=== PATIENT | female | born 1945 | race Caucasian/White ===

== ENCOUNTER 2016-12-07 10:03 | Inpatient (IN) | payer MEDICARE, OTHER ==
[~2016-12-07] VITALS: Ht 167.6 cm; Wt 78.1 kg
[2016-12-07] VITALS (8 sets, daily range): BP systolic 117–144; BP diastolic 67–85; PULSE 67–113; RESP 16–18; O2SAT 94–100
[~2016-12-07 10:03] MED LIST: ACID1TAB2 PO; ASPI-973 PO; CALC-952 PO; CEPH-512 PO; DEXT1DRO8 BOTH_EYES; DIPH25CA6 PO; DOCU-41 PO; FAMO20T PO; FERR-83 PO; FLUT16SP NS; HYDR-4003 PO; KTC2C15 TP; LEVO100T6 PO; MAG355OR31 PO; MAGN800O PO; METO25TA6 PO; OLAN2.5T20 PO; OXYB10TA PO; PARO20TA5 PO; POLY17PO6 PO; SODI126M NS; TRAZ-115 PO; ZIT250 PO
--- NOTE | 2016-12-07 10:05 | ED.REPORT ---
HPI-Chest Pain 40 and Over Date of Service Dec 07, 2016 ED Provider: The patient is a 71 year old female with history of diabetes mellitus, hypertension, hypoproliferative anemia, stroke, s/p pacemaker, hypothyroidism, and GERD, who presents to the emergency department by EMS for chest pain that began at 0900 this morning. The pain radiated into her shoulders and arms bilaterally. She describes the pain as "aching." After the pain began she see subsequently developed nausea, vomiting, and diaphoresis. Her pain was initially an 8/10 but after nitroglycerin x4 administered by medics her pain improved to a 2/10. She denies history of a previous heart attack, cardiac stents, congestive heart failure, asthma or emphysema. She has experienced a cough over the last few days but has otherwise felt well. Nursing Notes Stated Complaint: CHEST PAIN Nursing Notes Reviewed: Yes Allergies: Coded Allergies: TAPE (Verified Allergy, Severe, Sensitive Skin/Blisters (Paper& Coban OK) , 12/07/16) gabapentin (Verified Allergy, Severe, Edema, 12/07/16) meperidine (Verified Allergy, Severe, Seizures, 12/07/16) phenytoin (Verified Allergy, Severe, "I Turn Black", 12/07/16) ciprofloxacin (Verified Allergy, Intermediate, 12/07/16) Reported reaction from RN at [facility] deferasirox (Verified Allergy, Unknown, 12/07/16) latex (Verified Allergy, Unknown, 12/07/16) codeine (Verified Adverse Reaction, Mild, itching, 12/07/16) calcium (Verified Adverse Reaction, Unknown, CALCIUM CITRATE, 12/07/16) Uncoded Allergies: HAYFEVER (Allergy, Unknown, 07/16/16) STRAWBERRIES, (Allergy, Unknown, 07/16/16) Scheduled Acidophilus/Pectin, [place] (Acidophilus [place]) 1 Each Tablet 1 EACH PO QAM Cholecalciferol (Vitamin D3) (Vitamin D) 1,000 Unit Tablet 1,000 UNIT PO QAM Cyanocobalamin (Vitamin B-12) (Vitamin B-12) 1,000 Mcg Tablet 1,000 MCG PO QAM Dextran 70/Hypromellose/Pf (Artificial Tears Drops) 1 Each Droperette 1 DROP BOTH_EYES BID Famotidine (Famotidine) 20 Mg Tablet 20 MG PO QAM Fluticasone Propionate (Flovent Diskus) 250 Mcg Disk.w.dev 1 PUFF INHALATION BID Glucosamine (Glucosamine) 500 Mg Tablet 500 MG PO BID Levothyroxine (Levothyroxine) 100 Mcg Tablet 100 MCG PO QAM Melatonin/Pyridoxine (Melatonin 3 mg Tablet) 1 Each Tablet 1 EACH PO HS Metoprolol Tartrate (Metoprolol Tartrate) 25 Mg Tablet 12.5 MG PO QAM Multivitamin (Once Daily) 1 Each Tablet 1 EACH PO QAM Olanzapine (Olanzapine) 5 Mg Tablet 5 MG PO QPM Oxybutynin Chloride ER (Oxybutynin Chloride ER) 10 Mg Tab.er.24 10 MG PO QPM Paroxetine (Paroxetine) 20 Mg Tablet 20 MG PO QPM Terbinafine (Terbinafine) 250 Mg Tablet 250 MG PO BID Tizanidine (Tizanidine) 4 Mg Tablet 4 MG PO TID Trazodone (Trazodone) 50 Mg Tablet 25 MG PO HS Scheduled PRN Bisacodyl (Dulcolax) 5 Mg Tablet.dr 5 MG PO QAM PRN PRN For Constipation Docusate Sodium (Docusate Sodium) 250 Mg Capsule 250 MG PO QAM PRN PRN For Constipation Guaifenesin/Codeine Phosphate (Guaifen-Codeine 100-10 mg/5 ml) 120 Ml Liquid 10 ML PO Q4H PRN PRN For Cough Hydrocodone-Acetaminophen 5-325 mg (Hydrocodone-Acetaminophen 5-325 mg) 1 Each Tablet 1-2 TABLET PO BID PRN PRN For Pain Ondansetron (Ondansetron) 4 Mg Tablet 4 MG PO DAILY PRN PRN For Nausea/Vomiting Polyethylene Glycol 3350 (Miralax) 17 Gm Powd.pack 17 GM PO QAM PRN PRN For Constipation Sennosides (Senna) 8.6 Mg Tablet 17.2 MG PO QAM PRN PRN For Constipation General Time Seen by MD: 10:04 Chief Complaint Chest pain Hx Obtained From: Patient, EMS Arrived By: Ambulance Sudden in Onset?: Yes Onset Occurred: 1 - 4 hours ago Symptom Duration: Since onset Location: : Chest left: Chest right Quality: Painful Radiation: : Arm left: Arm right: Shoulder left: Shoulder right Severity: Current: Pain level 2 out of 10 Severity: Maximum: Pain level 8 out of 10 Recent Healthcare: No recent doctor visit, No recent hospitalization Similar Sx Previous: No Past Medical History Past Medical History H/o bipolar with psychosis Diabetes mellitus type 2 diet-controlled, chronic Hypoproliferative anemia, seen by Dr. Alvarado. 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 Hypothyroidism History of kidney stones GERD Hypertension History of endometriosis Osteoarthritis diffuse with chronic pain. Past Surgical History Cataract removal in 2007 Pacemaker placement, Hysterectomy at age 29 Cholecystectomy Tonsillectomy. Status post surgery for small bowel adhesions, hernia repair, and colon surgery Multiple hip replacements on the left x3. Smoking History Former Smoker Social History POLST indicates full code Alcohol Use: "Social" Drug Use: Denies drug use Other Social History: , Local resident Ambulatory Status Walker Review of Systems Constitutional: Denies: Fever Respiratory: Reports: Non-productive cough Cardiovascular: Reports: Chest pain GI: Reports: Nausea, Vomiting, Denies: Diarrhea Musculoskeletal: Reports: Extremity pain, Joint pain Skin: Reports Diaphoresis, Denies Rash Complete sys rev & neg: except as marked. Ears / Nose / Throat: Denies: Nasal congestion Physical Exam Initial Vital Signs Vital Signs (First) Date Time Temp Pulse Resp B/P Pulse Ox O2 Delivery O2 Flow Rate FiO2 12/07/16 10:14 36.8 70 16 117/67 94 Room Air Initial VS: Reviewed Head / Eyes: Atraumatic, Normocephalic, PERRL ENT: Mucous membranes moist, Conjunctiva normal, No scleral icterus Neck: Supple, Non-tender, Full range of motion Lymphatic: No lymphadenopathy Extremities: Vascular intact, Neuro intact, No swelling, No tenderness Skin: Warm, Dry, No cyanosis Neurologic: Alert, Oriented, Nonfocal Psychiatric: Mood/affect normal, Behavior normal, Normal thought content General/Constitutional: Awake, Alert, No acute distress, Well appearing, Cooperative Respiratory / Chest: Atraumatic, Breath sounds NL, Breath sounds = bilat, No respiratory distress, No rales, No rhonchi, No wheezing, No stridor, No chest tenderness Cardiovascular: Heart rate NL, Regular rhythm, Heart sounds NL, No gallop, No murmurs, No rubs, Peripheral circulation NL, Pulses = bilaterally, No gross BP differential Abdomen: Atraumatic, Soft, Non-tender, McBurney's non-tender, No guarding, No rebound, BS normoactive, No distention, No hernia, No palpable mass Interpretation & Diagnostics Lab Results Interpretation Result Diagram: 12/07/16 1005 12/07/16 1005 Test 12/07/16 10:05 White Blood Count 4.0th/mm3 (3.8-10.1) Red Blood Count 3.29mil/mm3 (3.90-5.20) Hemoglobin 10.8g/dL (12.0-15.6) Hematocrit 33.3% (35.0-46.0) Mean Corpuscular Volume 101.2fL (81-100) Mean Corpuscular Hemoglobin 32.8pg (27.0-35.0) Mean Corpuscular Hemoglobin Concent 32.4% (32.0-37.0) Red Cell Distribution Width 13.4% (12.3-15.4) Platelet Count 184bil/L (150-400) Neutrophils (%) (Auto) 47.9% (40-74) Lymphocytes (%) (Auto) 39.2% (14-46) Monocytes (%) (Auto) 10.2% (4-12) Eosinophils (%) (Auto) 2.0% (0-5) Basophils (%) (Auto) 0.2% (0-3) Activated Partial Thromboplast Time 24.8sec (22.8-33.0) Sodium Level 140mEq/L (134-144) Potassium Level 4.2mEq/L (3.5-5.2) Chloride Level 103mEq/L (97-108) Carbon Dioxide Level 21mmol/L (18-29) Blood Urea Nitrogen 31mg/dL (8-27) Creatinine 1.49mg/dL (0.57-1.00) Estimat Glomerular Filtration Rate 50mL/min (>59) Glucose Level 131mg/dL (60-99) Calcium Level 9.7mg/dL (8.5-10.1) Magnesium Level 1.9mg/dL (1.6-2.6) Total Bilirubin 0.4mg/dL (0.0-1.2) Aspartate Amino Transf (AST/SGOT) 18U/L (0-50) Alanine Aminotransferase (ALT/SGPT) 9U/L (0-32) Alkaline Phosphatase 78U/L (25-165) Troponin T 0.022ug/L (0.0-0.011) Total Protein 7.6g/dL (6.4-8.4) Albumin 4.0g/dL (3.4-5.0) ECG Interpretation ECG Interpretation: Paced rhythm Rate: 70 Time: 10:09 Interpreted by: ED physician X-Ray Chest Interpretation Chest Xray Interpretation: IMPRESSION: No acute disease Dictated by: Kyrie Avila M.D. on 12/07/2016 at 10:42 Interpretation / Wet Read by: Interpret - Radiologist Re-Eval/Medical Decision Source of Hx: Old records, EMS Time of Eval: 11:35 Re-Evaluation/Progress Note: Rechecked the patient. Discussed plan for admission. All questions were addressed. Consultation : Referral / Consult Name: Rizwan Beaver MD Consulted With: Hospitalist Requested Call at: 11:34 Call Returned at: 12:55 Wet Wash Assembler: Will see patient, Agrees with eval, Agrees with plan, Accepts admit Counseled Regarding: Diagnosis, Lab results, Need for admission Discharge & Departure Primary Impression: Chest pain Chest pain type: unspecified Qualified Code: R07.9 - Chest pain, unspecified Disposition: ADMITTED TO HOSPITAL Discharge Condition All VS Reviewed: Yes Condition: Stable Referrals: Nael Jin MD (PCP) Scribe Attestation Portions of this note were transcribed by Keara Webster. I, Dr. Dinero personally performed the history, physical exam and medical decision-making; I reviewed and confirmed the accuracy of the information in the transcribed note. Signed by: Jered Dotson, 12/07/2016 at 1300. copies to: Nael Jin MD, Kirk H MD Dec 07, 2016 10:05 Keara Webster Dec 07, 2016 10:13 Jerald Dinero MD Dec 07, 2016 10:05 Keara Webster Dec 07, 2016 10:13
[2016-12-07] MEDS ORDERED: Heparin 5,000 Unit/mL Inj IVPUSH PRN (10:15)
[2016-12-07] MEDS ORDERED: Nitroglycerin 2% 1 Gm Ointment TOPICAL ONE (10:15)
[2016-12-07] MEDS ORDERED: Heparin 25K Unit/500mL 0.45 NS 25,000 UNIT in IV Premix 1 EACH IV SCH (10:15)
[2016-12-07] MEDS ORDERED: Heparin 5,000 Unit/mL Inj IVPUSH ONE (10:15)
[2016-12-07] MEDS ORDERED: Ondansetron 2 mg/mL 2 mL Inj IVPUSH ONE (10:15)
[2016-12-07 10:21] LABS: BASOPHILS % (AUTO) 0.2 % (0-3); MONOCYTES % (AUTO) 10.2 % (4-12); Mean Corpuscular Hemoglobin 32.8 pg (27.0-35.0); Mean Corpuscular Volume 101.2 fL (81-100); NEUTROPHILS % (AUTO) 47.9 % (40-74); Platelet Count 184 bil/L (150-400)
--- NOTE | 2016-12-07 10:49 | DRSVH ---
PROCEDURE: X-RAY CHEST ONE VIEW, PORTABLE ([id number]) INDICATIONS: Chest Pain TECHNIQUE: One view of the chest was acquired. COMPARISON: [facility], CR, XR CHEST 2VW, 06/15/2016, 19:56. FINDINGS: Surgical changes and devices: Dual-lead cardiac pacer Lungs and pleura: No pleural effusions or pneumothorax. Lungs are clear. Mediastinum: Mediastinal contours appear normal. Heart size is normal. Bones and chest wall: No suspicious bony lesions. Overlying soft tissues appear unremarkable. IMPRESSION: No acute disease Dictated by: Kyrie Avila M.D. on 12/07/2016 at 10:42 Approved by: Kyrie Avila M.D. on 12/07/2016 at 10:47
[2016-12-07 11:11] LABS: Magnesium 1.9 mg/dL (1.6-2.6); TROPONIN T 0.022 ug/L (0.0-0.011)
[2016-12-07] MEDS ORDERED: Alum-Mag Hydrox-Simeth 30 mL Suspension PO PRN (13:00)
[2016-12-07] MEDS ORDERED: FAMO20TA4 PO (13:42)
[2016-12-07] MEDS ORDERED: MELA1TAB11 PO (13:42)
[2016-12-07] MEDS ORDERED: GLUC500T12 PO (13:42)
[2016-12-07] MEDS ORDERED: FLUT250D2 INHALATION (13:42)
[2016-12-07] MEDS ORDERED: METO25TA6 PO (13:42)
[2016-12-07] MEDS ORDERED: MULT-666 PO (13:45)
[2016-12-07] MEDS ORDERED: OLAN5TAB PO (13:45)
[2016-12-07] MEDS ORDERED: TERB250T11 PO (13:47)
[2016-12-07] MEDS ORDERED: CYAN10008 PO (13:47)
[2016-12-07] MEDS ORDERED: TIZA4TAB4 PO (13:47)
[2016-12-07] MEDS ORDERED: ONDA-53 PO (13:51)
[2016-12-07] MEDS ORDERED: DOCU250C2 PO (13:51)
[2016-12-07] MEDS ORDERED: GUAI120L30 PO (13:51)
[2016-12-07] MEDS ORDERED: BISA-67 PO (13:51)
[2016-12-07] MEDS ORDERED: CHOL100043 PO (13:51)
[2016-12-07] MEDS ORDERED: SENN-133 PO (13:53)
--- NOTE | 2016-12-07 15:00 | NUR ---
Arrival to floor Pt arrived to 3016 from ED, pt is on heparin gtt. Pt is alert and orient, pt has a brace on her left leg from having a broken femur 3 months ago.
[2016-12-07] MEDS ORDERED: Senna-Docusate 8.6-50 mg Tablet PO PRN (15:20)
[2016-12-07] MEDS ORDERED: Atropine 1 mg/10 mL (Code) Syringe IVPUSH PRN (15:20)
[2016-12-07] MEDS ORDERED: Polyethylene Glycol (PEG) 17 Gm Powder PO PRN (15:20)
[2016-12-07] MEDS: 0.9% Sodium Chloride 1,000 ML IV SCH (17:25)
[2016-12-07] MEDS ORDERED: _HYDROcodone/APAP 5-325 mg Tablet PO PRN (18:05)
--- NOTE | 2016-12-07 18:10 | NUR ---
Chest Pain Pt up to bedside commode as per her usual home routine. Upon getting back in bed, pt exerted herself and confirmed chest pain when asked. Nitro given x1, BP taken - stable. 5 mins later, 2nd nitro given, BP stable. EKG done. Morphine [address] Marquez. Pt stabilized. Continue to monitor.
--- NOTE | 2016-12-07 18:16 | PCM.HPMED ---
Subjective Date of Service Dec 07, 2016 Primary Provider: Admitting Physician: Rizwan Beaver MD Primary Care Physician: Nael Jin MD Attending Physician: Rizwan Beaver MD . Admit Status: From the Emergency Department, Full Admit Chief Complaint: Chest pain. . History of Present Illness: Camila Sharpe is a 71-year-old female with a past medical history significant for diabetes mellitus type II, diet controlled, hypertension, hyperlipidemia, symptomatic bradycardia status post pacemaker placement, remote CVA with left-sided hemiparesis, CKD stage II, who presented to [facility] Emergency Department via EMS from [facility] facility due to chest pain that began at 0900 this morning. The pain was located substernally and radiated into her left shoulder and arm. She described the pain as aching in quality. She had associated diaphoresis, nausea, and vomiting 2. Her pain was initially an + 8 out of 10 but after nitroglycerin x4 was administered by paramedics her pain improved to a +2 out of 10. She reports that her pain had resolved completely by the time she arrived at the emergency department. She has never had this before. She denies headache, lightheadedness or dizziness, vision changes, dysarthria, shortness of breath, or palpitations. Vital signs in the ER: Temperature 36.8. Pulse 70. Respiratory rate 16. Blood pressure 117/67. Pulse ox 94% on room air. She was given nitroglycerin SL 4 en route. She also received metoprolol 25 mg PO 1, Zofran 4 mg IV 1 and was started on a heparin gtt per cardiac protocol in the ED. PCP is Dr. Morales. . Review of Systems: A comprehensive review of systems was conducted with the patient and found to be negative except as above in the History of Present Illness. . Allergies Coded Allergies: TAPE (Verified Allergy, Severe, Sensitive Skin/Blisters (Paper& Coban OK) , 12/07/16) gabapentin (Verified Allergy, Severe, Edema, 12/07/16) meperidine (Verified Allergy, Severe, Seizures, 12/07/16) phenytoin (Verified Allergy, Severe, "I Turn Black", 12/07/16) ciprofloxacin (Verified Allergy, Intermediate, 12/07/16) Reported reaction from RN at [facility] deferasirox (Verified Allergy, Unknown, 12/07/16) latex (Verified Allergy, Unknown, 12/07/16) codeine (Verified Adverse Reaction, Mild, itching, 12/07/16) calcium (Verified Adverse Reaction, Unknown, CALCIUM CITRATE, 12/07/16) Uncoded Allergies: HAYFEVER (Allergy, Unknown, 07/16/16) STRAWBERRIES, (Allergy, Unknown, 07/16/16) PMH 1. Hypertension. 2. Hyperlipidemia. 3. Diabetes mellitus type II, diet controlled. 4. Obstructive sleep apnea not on CPAP. 5. Remote history of tobacco use. 7. History of TIA and CVA. 8. Bradycardia status post pacemaker. 9. Anemia, chronic, hypoproliferative. 10. Gastroesophageal reflux disease. 11. Hypothyroidism. 12. Chronic kidney disease of uncertain baseline with history of acute kidney injury (recent creatinine running 1-2). 13. Incontinence. 14. Bipolar disorder type I. 15. Depression. 16. Anxiety. 17. Chronic pain with opiate habituation. 18. Femur fracture and left hip abnormality on CT. 19. History of urinary tract infection. 20. History of C. difficile colitis in July 2015. 21. History of MRSA bacteremia. 22. History of sacral decubitus ulcer. . Surgical History 1. Bilateral cataract extraction. 2. Hysterectomy BSO. 3. Cholecystectomy. 4. Tonsillectomy. 5. Laparoscopy for small-bowel adhesions x 6. 6. Unspecified small and large colon surgery. 7. Left hip replacement x 5 with hardware removal. . Family History Dad of diabetic complications. Mother who had lung cancer and of pneumonia at 72 years old. Brother who had an SC in his 40's and is alive and well. . Social History Hx Alcohol Use: No Hx Substance Use: No Hx Tobacco Use: Yes (remote history) Smoking Status: Former Smoker (2 ppd x 12-15 years) Living Arrangement: Assisted Living Additional Information The patient is x 42 years. She has no children of her own. 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 She was born in [place]. . Exam Vital Signs Vital Sign - Last Date Time Temp Pulse Resp B/P Pulse Ox O2 Delivery O2 Flow Rate FiO2 12/07/16 10:14 36.8 70 16 117/67 94 Room Air Exam General: Elderly obese female in no acute distress, well-developed, well- nourished, appropriately interactive. HEENT: Normocephalic, atraumatic. External ears without defect. Pupils equal, round, and reactive to light. Anicteric sclerae, moist conjunctivae, and no lid lag. Oropharynx free of erythema and cobble stoning with moist mucosa. Neck: Supple with full range of motion. No jugular venous distension. No bruits. No lymphadenopathy or thyromegaly. Cardiovascular: Regular rate and rhythm without rubs or gallops appreciated. Systolic 2/5 murmur appreciated. No abdominal bruit. Capillary refill <3 seconds. Pulmonary: Clear to auscultation bilaterally with no crackles, wheezes, or rhonchi. Normal respiratory effort with no use of accessory muscles. Abdomen: Obese, soft, no tenderness, nondistended. No hepatosplenomegaly or masses appreciated. : Pierson absent. Extremities: No clubbing, cyanosis, or edema. Skin: Normal temperature, turgor, and texture; no rash, ulcers, or subcutaneous nodules appreciated. Neurological: Cranial nerves grossly intact. Normal muscle strength, tone, and bulk. Reflexes, coordination, and sensory function within normal limits. No known gait impairment. Psychiatric: Normal mood and affect. Alert and oriented to person, place, and time. . Lab and Diagnostics Labs Item Value Date Time Calcium Level 9.7 mg/dL 12/07/16 1005 Magnesium Level 1.9 mg/dL 12/07/16 1005 Total Bilirubin 0.4 mg/dL 12/07/16 1005 Aspartate Amino Transf (AST/SGOT) 18 U/L 12/07/16 1005 Alanine Aminotransferase (ALT/SGPT) 9 U/L 12/07/16 1005 Alkaline Phosphatase 78 U/L 12/07/16 1005 Troponin T 0.022 ug/L H 12/07/16 1005 Total Protein 7.6 g/dL 12/07/16 1005 Albumin 4.0 g/dL 12/07/16 1005 Result Diagram: 12/07/16 1005 12/07/16 1005 X-Rays, CTs and MRIs X-RAY CHEST ONE VIEW, PORTABLE IMPRESSION: No acute disease Dictated by: Kyrie Avila M.D. on 12/07/2016 at 10:42 Approved by: Kyrie Avila M.D. on 12/07/2016 at 10:47 . 12-lead ECG EKG: AV paced, heart rate 70. Cardiac Echo Impressions Echocardiogram Interpretation Summary: There is basal inferior wall severe hypokinesis. There is basal posterolateral wall severe hypokinesis. There is proximal mid posteriolateral wall severe hypokinesis. Reading Physician:12:12 PM . Assessment & Plan Camila Sharpe is a 71-year-old female with a past medical history significant for bipolar disorder and intermittent psychosis, diabetes mellitus type II, diet controlled, hypertension, hyperlipidemia, pacemaker placement, remote CVA with hemiparesis, CKD stage II, who presented to [facility] Emergency Department via EMS from [facility] facility due to chest pain. 1. NSTEMI, present on admission. Active. - Cardiac risk factors include: Hypertension, hyperlipidemia, diabetes mellitus type II, age, smoker, and significant family history. - Patient presented with substernal chest pain with associated diaphoresis, nausea, vomiting, left shoulder and arm pain which resolved with sublingual nitroglycerin. - EKG shows AV pacing, therefore, unreliable. - Troponin initially elevated at 0.22. Patient then had another episode of chest pain with corresponding increased troponin of 0.769. Continue serial troponins every 6 hours. - Patient received metoprolol tartrate 25 mg PO 1. - Ordered CK-MB, pending. - Continue aspirin 81 mg daily. - Continue cardiac heparin gtt. - Discussed patient with Dr. Young of cardiology who recommends Plavix 600 mg , Lipitor 40 mg, and placing the patient NPO for catheterization tomorrow morning. - Continue to monitor closely on telemetry. - The patient continues to have chest pain recommend starting a nitroglycerin drip. - Recent echocardiogram basal inferior wall severe hypokinesis, basal posterolateral wall severe hypokinesis, and proximal mid posteriolateral wall severe hypokinesis. - Ordered fasting lipid panel to be performed tomorrow morning with a.m. labs. - Dr. Young of cardiology was consulted and plans for catheterization in the morning. We appreciate their time and care of the patient. Chronic problems: Hypertension, chronic. - Continue metoprolol tartrate 25 mg daily. Hyperlipidemia, chronic. - Continue atorvastatin 40 mg daily at bedtime. Diabetes mellitus type II, diet controlled. - Last hemoglobin A1c 4.6% on 05/2016. Repeat hemoglobin A1c pending. - Ordered low dose correctional scale insulin. - Ordered carbohydrate consistent/heart healthy diet. Gastroesophageal reflux disease, chronic. - Continue famotidine 20 mg daily. Hypothyroidism, chronic. - Continue levothyroxine 100 g daily. Chronic hypoproliferative anemia. - History of chronic anemia secondary to CKD, requiring transfusions. - The patient reports receiving transfusions every 3-4 months. - Continue to monitor daily. Bipolar disorder type I, chronic - Continue olanzapine 5 mg daily and fluoxetine 20 mg daily.. Chronic pain with opiate habituation, chronic. - Continue hydrocodone 5-325 mg 1-2 tablets every 4 hours as needed for pain. Incontinence, chronic. - Continue oxybutynin ER 10 mg daily. Remote CVA with left hemiparesis. - Continue aspirin 81 mg daily and atorvastatin 40 mg daily at bedtime. Obstructive sleep apnea not on CPAP. Remote history of tobacco use. Bradycardia status post pacemaker. PRN antiemetics: Zofran and Maalox. PRN bowel regimen: Senna and MiraLAX. PRN analgesics: Tylenol. Patient is admitted under inpatient status with expected length of stay greater than 2 midnights due to severity of presenting symptoms, risk of adverse event, and complexity of treatment plan. . VTE Prophylaxis: Other (Heparin gtt ) Resuscitation Status: CPR: Attempt Resuscitation Attending Statement The patient was seen and examined together with Dr. Marquez on 12-07-16 and I agree with the history, exam and plan as outlined in the note above. Marj Marquez DO Dec 07, 2016 13:28 Rizwan Beaver MD Dec 09, 2016 11:24
[2016-12-07] MEDS: Tolterodine ER 2 mg ER24 Capsule PO SCH (21:59)
[2016-12-07] MEDS: Fluticasone 250 mCg Inhaler INHALATION SCH (21:59)
[2016-12-07 22:03] LABS: TROPONIN T 0.622 ug/L (0.0-0.011)
[2016-12-08] VITALS (11 sets, daily range): BP systolic 113–151; BP diastolic 51–94; PULSE 70–71; RESP 16–23; O2SAT 95–99
--- NOTE | 2016-12-08 06:36 | NUR ---
Bedrest Maintained on bedrest this shift due to reports of increased CP with activity. Has denied any episodes of CP at rest. Tele has remained AVPaced 70's without any significant ectopy per quality assurance monitor body.
[2016-12-08] MEDS: 0.9% Sodium Chloride 1,000 ML IV SCH ×2 (07:41→19:41)
[2016-12-08] MEDS: PARoxetine 20 mg Tablet PO SCH (07:46)
[2016-12-08 07:48] LABS: BASOPHILS % (AUTO) 1.9 % (0-3); EOSINOPHILS % (AUTO) 3.1 % (0-5); MONOCYTES % (AUTO) 11.5 % (4-12); Mean Corpuscular Hemoglobin 33.8 pg (27.0-35.0); Mean Corpuscular Volume 104.7 fL (81-100); NEUTROPHILS % (AUTO) 49.5 % (40-74); Platelet Count 135 bil/L (150-400)
[2016-12-08] MEDS: Artificial Tears 15 mL Ophthalmic Solution BOTH_EYES PRN ×2 (07:48→21:06)
[2016-12-08] MEDS: Fluticasone 250 mCg Inhaler INHALATION SCH ×2 (07:49→21:07)
[2016-12-08 08:56] LABS: TROPONIN T 0.336 ug/L (0.0-0.011)
[2016-12-08] MEDS: Heparin 5,000 Unit/mL Inj IVPUSH PRN (10:37)
[2016-12-08] MEDS: HYDROcodone-APAP 5-325 mg Tablet PO PRN (10:41)
--- NOTE | 2016-12-08 11:00 | NUR ---
[facility] signed
[2016-12-08] MEDS: Heparin 25K Unit/500mL 0.45 NS 25,000 UNIT in IV Premix 1 EACH IV SCH (12:00)
--- NOTE | 2016-12-08 12:46 | PCM.PNMED ---
Subjective Date of Service Dec 08, 2016 Subjective Patient reports that she is very fatigued. She reports some shortness of breath , that is unchanged from yesterday. Pt reports that she continues to experience chest pain with activity and movement. She states that when she is laying in bed , she is without chest pain. Pt denies any fevers, chills, nausea, vomiting, or diarrhea. Exam Vital Signs Vital Sign - Last Date Time Temp Pulse Resp B/P Pulse Ox O2 Delivery O2 Flow Rate FiO2 12/08/16 12:15 36.8 70 20 135/66 99 Nasal Cannula 2.00 Intake and Output 12/07/16 12/07/16 12/08/16 Cumulative From/Thru 15:00 23:00 07:00 12/07/16 14:34 - 12/08/16 06:26 Intake Total 460 ml 1134 ml 1594 ml Output Total 2 ml 2 ml Balance 460 ml 1132 ml 1592 ml Intake Oral 0 ml 0 ml 0 ml IV Total 460 ml 1134 ml 1594 ml Output Urine Total 2 ml 2 ml # Voids 1 1 # Bowel Movements 0 0 Exam General: No acute distress, well-developed, well-nourished, appropriately interactive HEENT: Normocephalic, atraumatic. External ears without defect. Pupils equal, round, and reactive to light and accommodation. Anicteric sclerae, moist conjunctivae. Oropharynx with moist mucosa. Neck: Supple with full range of motion. Cardiovascular: Regular rate and rhythm with systolic murmur, no rubs, or gallops appreciated Pulmonary: Clear to auscultation bilaterally with no crackles, wheezes, or rhonchi. Normal respiratory effort with no use of accessory muscles. Abdomen: Bowel tones present. Soft, nontender, nondistended. Extremities: No clubbing, cyanosis, edema appreciated. Skin: Normal temperature, turgor, and texture; no rash, ulcers, or subcutaneous nodules appreciated. Psychiatric: Normal mood and affect. Alert and oriented to person, place, and time. IVs and Medications Medications Reviewed: Medications were reviewed in detail Lab and Diagnostics Result Diagram: 12/08/1664612/08/16646 X-Rays, CTs and MRIs X-RAY CHEST ONE VIEW, PORTABLE IMPRESSION: No acute disease Dictated by: Kyrie Avila M.D. on 12/07/2016 at 10:42 Approved by: Kyrie Avila M.D. on 12/07/2016 at 10:47 . 12-lead ECG EKG: AV paced, heart rate 70. Cardiac Echo Impressions Echocardiogram Interpretation Summary: There is basal inferior wall severe hypokinesis. There is basal posterolateral wall severe hypokinesis. There is proximal mid posteriolateral wall severe hypokinesis. Reading Physician:12:12 PM . Assessment & Plan Camila Sharpe is a 71-year-old female with a past medical history significant for bipolar disorder and intermittent psychosis, diabetes mellitus type II, diet controlled, hypertension, hyperlipidemia, pacemaker placement, remote CVA with hemiparesis, CKD stage II, who presented to [facility] Emergency Department via EMS from [facility] due to chest pain. 1. NSTEMI, present on admission. Active. - Cardiac risk factors include: Hypertension, hyperlipidemia, diabetes mellitus type II, age, smoker, and significant family history. - Patient presented with substernal chest pain with associated diaphoresis, nausea, vomiting, left shoulder and arm pain which resolved with sublingual nitroglycerin. - EKG shows AV pacing, therefore, unreliable. - Troponin initially elevated at 0.22. Serial troponins continue to be elevated - CK-MB elevated - Continue aspirin 81 mg daily. - Continue cardiac heparin gtt. - Discussed patient with Dr. Lord of cardiology who will be starting a blood thinner challenege and suspects patient will have Cath on Saturday or Saturday. - Continue to monitor closely on telemetry. - If patient continues to have chest pain recommend starting a nitroglycerin drip. - ECHO ordered Chronic problems: 2. Hypertension, chronic. - Continue metoprolol tartrate 25 mg daily. 3.Hyperlipidemia, chronic. - Continue atorvastatin 40 mg daily at bedtime. 4.Diabetes mellitus type II, diet controlled. - Last hemoglobin A1c 4.6% on 05/2016. Repeat hemoglobin A1c pending. - Ordered low dose correctional scale insulin. - Ordered carbohydrate consistent/heart healthy diet. 5.Gastroesophageal reflux disease, chronic. - Continue famotidine 20 mg daily. 6. Hypothyroidism, chronic. - Continue levothyroxine 100 g daily. -TSH and T4 ordered today 7.Chronic hypoproliferative anemia. - History of chronic anemia secondary to CKD, requiring transfusions. - The patient reports receiving transfusions every 3-4 months. - Continue to monitor daily. 8.Bipolar disorder type I, chronic - Continue olanzapine 5 mg daily and fluoxetine 20 mg daily.. 9.Chronic pain with opiate habituation, chronic. - Continue hydrocodone 5-325 mg 1-2 tablets every 4 hours as needed for pain. 10.Incontinence, chronic. - Continue oxybutynin ER 10 mg daily. 11.Remote CVA with left hemiparesis. - Continue aspirin 81 mg daily and atorvastatin 40 mg daily at bedtime. 12.Obstructive sleep apnea not on CPAP. 13.Remote history of tobacco use. 14Bradycardia status post pacemaker. PRN antiemetics: Zofran and Maalox. PRN bowel regimen: Senna and MiraLAX. PRN analgesics: Tylenol. Patient is admitted under inpatient status with expected length of stay greater than 2 midnights due to severity of presenting symptoms, risk of adverse event, and complexity of treatment plan. . VTE Prophylaxis: Other (Heparin gtt ) Resuscitation Status: CPR: Attempt Resuscitation Attending Statement The patient was seen and examined together with Dr. Kraft on 12-08-16 and I agree with the history, exam and plan as outlined in the note above. Deedee Kraft DO Dec 08, 2016 12:46 Rizwan Beaver MD Dec 09, 2016 16:40
--- NOTE | 2016-12-08 15:10 | DRSVH ---
[facility] [address] [place] [address] Echocardiogram Report Name: RADHA LITTLE Date: Height: 66 in Hospital Exam Location: [facility] Weight: 177 lb Gender: Female BSA: 1.9 m2 : 1945 Age: 71 yrs BP: 115/75 mmHg Reason For Study: Chest pain Ordering Physician: Performed By: [facility] Interpretation Summary The left ventricle is normal in size. Left ventricular systolic function is moderately reduced. The ejection fraction is estimated to be 30-35%. There is akinesis along the distal 1/3 LV segments. There is hypokinesis along the middle 1/3 of LV segments. The basal or proximal 1/3 of LV segments are either normokinetic or hyperkinetic. Findings are suspicious for stress induced cardiomyopathy, but cannot completely exclude LAD infarction. Assessment of diastolic parameters indicates a relaxation abnormality of the left ventricle, consistent with normal filling pressures. The right ventricle is normal in size and function. There is a pacemaker lead in the right ventricle. Pulmonary artery pressures cannot be estimated because of the lack of a measurable TR jet velocity. The left atrium is moderately dilated. There is mild to moderate mitral regurgitation. There is no other significant valvular heart disease. Procedure: A two-dimensional transthoracic echocardiogram with color flow and Doppler was performed. The study quality was technically adequate. Comparison is made with the echocardiogram of 11-23-15. The patient has a paced rhythm. Left Ventricle: The left ventricle is normal in size. There is normal left ventricular wall thickness. Left ventricular systolic function is moderately reduced. The ejection fraction is estimated to be 30-35%. There is akinesis along the distal 1/3 LV segments. There is hypokinesis along the middle 1/3 of LV segments. The basal or proximal 1/3 of LV segments are either normokinetic or hyperkinetic. Findings are suspicious for stress induced cardiomyopathy, but cannot completely exclude LAD infarction. Assessment of diastolic parameters indicates a relaxation abnormality of the left ventricle, consistent with normal filling pressures. Right Ventricle: The right ventricle is normal in size and function. There is a pacemaker lead in the right ventricle. Atria: The left atrium is moderately dilated. Right atrial size is normal. There is a catheter/pacemaker lead seen in the right atrium. The interatrial septum is intact with no evidence for an atrial septal defect. Mitral Valve: The mitral valve leaflets appear mildly thickened, but open well. There is mild to moderate mitral annular calcification. There is mild to moderate mitral regurgitation. Aortic Valve: Leaflet mobility is moderately reduced. The aortic valve is moderately calcified. No aortic regurgitation is present. Tricuspid Valve: The tricuspid valve is normal in structure and function. No tricuspid regurgitation. Pulmonary artery pressures cannot be estimated because of the lack of a measurable TR jet velocity. Pulmonic Valve: The pulmonic valve is not well visualized. There is no pulmonic valvular regurgitation. There is no other significant valvular heart disease. Great Vessels: The aortic root is normal size. The aortic arch is normal in size. The IVC is of normal diameter and collapses greater than 50% with a sniff. This suggests a low right atrial pressure of 3 mm Hg. Pericardium/ Pleura There is no pericardial effusion. There is no pleural effusion. MMode/2D Measurements & Calculations LVIDd: 4.9 cm LA dimension: 3.9 cm RA long axis Ao root diam LVIDs: 3.2 cm FS: 34.5 % LA A2 area: 24.1 cm RA area Aortic Jxn: 2.9 cm IVSd: 1.1 cm LA A4 area: 21.6 cm Ao Arch Diam (Prox LVPWd: 0.79 cm LA length (vol) : 11.4 cm Trans): 3.1 cm RA vol LA vol: 83.5 ml : 23.5 ml LA vol index RA : 12.4 mm/ RVDd major IVC diam: 1.9 cm : 4.1 cm LV fitzpatrick. diameter/BSA LV sys. diameter/BSA RVD1 (basal) RVD2 (mid): 2.8 cm (cm/m^2): 2.6 (cm/m^2): 1.7 Doppler Measurements & Calculations Ao V2 max MV E max tomas MV E/A: 0.86 PA V2 max : 194.9 cm/sec : 76.1 cm/sec Med Peak E' Tomas : 68.9 cm/sec Ao max PG MV A max tomas PA mean PG : 15.2 mmHg : 88.8 cm/sec E/E' med: 12.9 : 0.98 mmHg Ao mean PG MV P1/2t: 81.3 msec Lat Peak E' Tomas PA Accel Time MR ERO: 0.20 cm2 : 0.10 sec LVOT Max Tomas E/E' lat: 10.2 : 73.5 cm/sec E/e' average: 11.5 sev ratio: 0.41 MV A dur: 0.12 sec MV dec time MV P1/2t max tomas Ao V2 mean LV V1 max PG : 0.28 sec : 132.6 cm/sec MVA(P1/2t): 2.7 cm2 Ao V2 VTI: 44.5 cm LV V1 VTI : 18.3 cm MR flow rate PA V2 mean : 98.5 cm3/sec : 46.6 cm/sec MR PISA radius Reading Physician:HILDA
[2016-12-08] MEDS: Ondansetron 2 mg/mL 2 mL Inj IVPUSH PRN ×2 (16:53→17:11)
--- NOTE | 2016-12-08 17:14 | PCM.CHPCAR ---
Consult Subjective Date of service Dec 08, 2016 Date of admit Dec 07, 2016 at 12:55 Provider Requesting Consult Requesting Provider: Deedee Kraft DO Primary Care Physician Primary Care Provider: Nael Jin MD Chief Complaint chest pain History of Present Illness This is a delightful 71-year-old female with no prior cardiac history. The patient actually had an ischemic evaluation just a few years ago which came back negative. The patient comes in complaining of chest discomfort, nausea, jaw pain, and left arm discomfort. Her symptoms started this past Saturday. The patient's troponins have come back positive. Her EKG is unremarkable in the sense that she has atrial and ventricular pacing. House arrested the patient to see if cardiac catheterization would be appropriate. Patient currently denies any chest pain at this moment. She is lying comfortably in her bed at this moment. However when she gets up and walks around she does have exertional chest discomfort. Her echocardiogram just been completed which shows findings are suspicious for stress-induced cardiomyopathy. However, LAD infarction cannot be completely excluded. The patient is currently on caput ago , IV heparin, and aspirin. She is currently on metoprolol tartrate 25 mg once a day. Currently she denies any PND or orthopnea. The patient was at one point see me but it appears that she has been having her device checks at her clinic but sees a primer charger up in [place]. She is unable to give her primer charger's name. The might be a possibility that she has seen him in [place]. Review of Systems Review of Systems A comprehensive review of systems was conducted with the patient and found to be negative except as above in the history of present illness. [facility] Past Medical History 1. Hypertension. 2. Hyperlipidemia. 3. Diabetes mellitus type II, diet controlled. 4. Obstructive sleep apnea not on CPAP. 5. Remote history of tobacco use. 7. History of TIA and CVA. 8. Bradycardia status post pacemaker. 9. Anemia, chronic, hypoproliferative. 10. Gastroesophageal reflux disease. 11. Hypothyroidism. 12. Chronic kidney disease of uncertain baseline with history of acute kidney injury (recent creatinine running 1-2). 13. Incontinence. 14. Bipolar disorder type I. 15. Depression. 16. Anxiety. 17. Chronic pain with opiate habituation. 18. Femur fracture and left hip abnormality on CT. 19. History of urinary tract infection. 20. History of C. difficile colitis in July 2015. 21. History of MRSA bacteremia. 22. History of sacral decubitus ulcer. . Past Surgical History 1. Bilateral cataract extraction. 2. Hysterectomy BSO. 3. Cholecystectomy. 4. Tonsillectomy. 5. Laparoscopy for small-bowel adhesions x 6. 6. Unspecified small and large colon surgery. 7. Left hip replacement x 5 with hardware removal. Bedside Blood Glucose: 92 Scheduled Acidophilus/Pectin, [place] (Acidophilus Caplet) 1 Each Tablet 1 EACH PO QAM ( Reported) Cholecalciferol (Vitamin D3) (Vitamin D) 1,000 Unit Tablet 1,000 UNIT PO QAM ( Reported) Cyanocobalamin (Vitamin B-12) (Vitamin B-12) 1,000 Mcg Tablet 1,000 MCG PO QAM ( Reported) Dextran 70/Hypromellose/Pf (Artificial Tears Drops) 1 Each Droperette 1 DROP BOTH_EYES BID (Reported) Famotidine (Famotidine) 20 Mg Tablet 20 MG PO QAM (Reported) Fluticasone Propionate (Flovent Diskus) 250 Mcg Disk.w.dev 1 PUFF INHALATION BID (Reported) Glucosamine (Glucosamine) 500 Mg Tablet 500 MG PO BID (Reported) Levothyroxine (Levothyroxine) 100 Mcg Tablet 100 MCG PO QAM (Reported) Melatonin/Pyridoxine (Melatonin 3 mg Tablet) 1 Each Tablet 1 EACH PO HS ( Reported) Metoprolol Tartrate (Metoprolol Tartrate) 25 Mg Tablet 12.5 MG PO QAM (Reported ) Multivitamin (Once Daily) 1 Each Tablet 1 EACH PO QAM (Reported) Olanzapine (Olanzapine) 5 Mg Tablet 5 MG PO QPM (Reported) Oxybutynin Chloride ER (Oxybutynin Chloride ER) 10 Mg Tab.er.24 10 MG PO QPM ( Reported) Paroxetine (Paroxetine) 20 Mg Tablet 20 MG PO QPM (Reported) Terbinafine (Terbinafine) 250 Mg Tablet 250 MG PO BID (Reported) Tizanidine (Tizanidine) 4 Mg Tablet 4 MG PO TID (Reported) Trazodone (Trazodone) 50 Mg Tablet 25 MG PO HS (Reported) Scheduled PRN Bisacodyl (Dulcolax) 5 Mg Tablet.dr 5 MG PO QAM PRN PRN For Constipation ( Reported) Docusate Sodium (Docusate Sodium) 250 Mg Capsule 250 MG PO QAM PRN PRN For Constipation (Reported) Guaifenesin/Codeine Phosphate (Guaifen-Codeine 100-10 mg/5 ml) 120 Ml Liquid 10 ML PO Q4H PRN PRN For Cough (Reported) Hydrocodone-Acetaminophen 5-325 mg (Hydrocodone-Acetaminophen 5-325 mg) 1 Each Tablet 1-2 TABLET PO BID PRN PRN For Pain (Reported) Ondansetron (Ondansetron) 4 Mg Tablet 4 MG PO DAILY PRN PRN For Nausea/Vomiting (Reported) Polyethylene Glycol 3350 (Miralax) 17 Gm Powd.pack 17 GM PO QAM PRN PRN For Constipation (Reported) Sennosides (Senna) 8.6 Mg Tablet 17.2 MG PO QAM PRN PRN For Constipation ( Reported) Discontinued Medications Aspirin (Aspirin) 81 Mg Tablet 81 MG PO Q2DAY (Reported) Azithromycin (Zithromax) 250 Mg Tablet 500 MG PO DAILY Calcium Carbonate/Vitamin D3 (Calcium 500 mg Chewable Tablet) 1 Each Tab.chew 3 EACH PO TID (Reported) Cephalexin (Keflex) 500 Mg Capsule 500 MG PO QID Docusate Sodium (Colace) 100 Mg Capsule 100 MG PO DAILY (Reported) Famotidine (Pepcid) 20 Mg Tablet 20 MG PO BID Ferrous Sulfate (Ferrous Sulfate) 325 Mg Tablet 325 MG PO DAILY (Reported) Fluticasone Propionate (Fluticasone Propionate Nasal) 16 Gm [place].susp 1 SPRAY NS BID (Reported) Ketoconazole (Ketoconazole) 15 Gm Cream..g. 15 GM TP BID (Reported) Mag Hydrox/Al Hydrox/Simeth (Antacid M Liquid) 355 Ml Oral.susp 30 ML PO QID PRN PRN For Dyspepsia or Heartburn (Reported) Magnesium Hydroxide (Milk of Magnesia) 10 Ml Conc 10 ML PO Q12H PRN PRN For Constipation Metoprolol Tartrate (Metoprolol Tartrate) 25 Mg Tablet 25 MG PO BID Olanzapine (Olanzapine) 2.5 Mg Tablet 1.25 MG PO QAM (Reported) Olanzapine (Olanzapine) 2.5 Mg Tablet 2.5 MG PO DAILYWD (Reported) Olanzapine (Olanzapine) 2.5 Mg Tablet 5 MG PO HS (Reported) Sodium Chloride (Saline Nasal Mist) 126 Ml Mist 2 SPRAYS NS Q2H PRN PRN For Congestion (Reported) diphenhydrAMINE HCl (Benadryl) 25 Mg Capsule 25 MG PO QID PRN PRN For Itching ( Reported) Current Inpatient Medications Current Medications Nitroglycerin 0.4 mg Q5MIN PRN SL; Start 12/07/16 at 10:15; Stop 12/07/16 at 15 :26; Status DC Morphine Sulfate UP TO 10 mg IV in a 4 h... Q15MIN PRN IVPUSH; Start 12/07/16 at 10:15; Stop 12/07/16 at 15:26; Status DC Heparin Sodium (Porcine) Per Protocol for a... PRN PRN IVPUSH; Start 12/07/16 at 10:15; Stop 12/07/16 at 15:37; Status DC Al Hydrox/Mg Hydrox/Simethicone 30 ml Q6 PRN PO; Start 12/07/16 at 13:00 Ondansetron HCl Dose range: 4 mg to 8 mg Q4H PRN IVPUSH Last administered on 16:53; Admin Dose 4 MG; Start 12/07/16 at 13:00 Acetaminophen 975 mg Q6H PRN PO Last administered on 12/08/16 07:48; Admin Dose 975 MG; Start 12/07/16 at 13:00 Aspirin 81 mg DAILY PO Last administered on 12/08/16 07:52; Admin Dose 81 MG; Start 12/08/16 at 08:30 Senna 1 tablet BID PRN PO; Start 12/07/16 at 15:20 Polyethylene Glycol 17 gm DAILY PRN PO; Start 12/07/16 at 15:20 Nitroglycerin 0.4 mg Q5MIN PRN SL Last administered on 12/08/16 16:55; Admin Dose 0.4 MG; Start 12/07/16 at 15:20 Morphine Sulfate 1-5 mg prn pain not relie... Q5M PRN IVPUSH; Start 12/07/16 at 15:20 Atropine Sulfate for symptomatic bradycar... Q5MIN PRN IVPUSH; Start 12/07/16 at 15:20 Heparin Sodium (Porcine) Per Protocol for a... PRN PRN IVPUSH Last administered on 12/08/16 10:37; Admin Dose 1,000 UNIT; Start 12/07/16 at 15:20 Metoprolol Tartrate 25 mg 25 mg DAILY PO Last administered on 12/08/16 07:46; Admin Dose 25 MG; Start 12/08/16 at 08:30 Sodium Chloride 1,000 ml @ 80 mls/hr [id number] IV Last administered on 12/08/16 07:41; Admin Dose 80 MLS/HR; Start 12/07/16 at 17:25 Docusate Sodium 250 mg DAILY PRN PO; Start 12/07/16 at 18:05 Famotidine 20 mg DAILYAC PO Last administered on 12/08/16 07:46; Admin Dose 20 MG; Start 12/08/16 at 07:30 Fluticasone Propionate 1 puff BID INHALATION Last administered on 12/08/16 07: 49; Admin Dose 1 PUFF; Start 12/07/16 at 20:30 Acetaminophen/ Hydrocodone Bitart for moderate pain BID PRN PO; Start 12/07/16 at 18:05; Status UNV Levothyroxine Sodium 100 mcg DAILY PO Last administered on 12/08/16 07:46; Admin Dose 100 MCG; Start 12/08/16 at 08:30 Olanzapine 5 mg DAILY PO Last administered on 12/08/16 07:55; Admin Dose 5 MG; Start 12/08/16 at 08:30 Paroxetine HCl 20 mg DAILY PO Last administered on 12/08/16 07:46; Admin Dose 20 MG; Start 12/08/16 at 08:30 Polyethylene Glycol 17 gm DAILY PRN PO; Start 12/07/16 at 18:05 Senna 17.2 mg DAILY PRN PO; Start 12/07/16 at 18:05 Melatonin 5 mg HS PO Last administered on 12/07/16 21:59; Admin Dose 5 MG; Start 12/07/16 at 21:00 Tolterodine Tartrate 2 mg HS PO Last administered on 12/07/16 21:59; Admin Dose 2 MG; Start 12/07/16 at 21:00 Artificial Tears 2 drop Q2H PRN BOTH_EYES Last administered on 12/08/16 07:48 ; Admin Dose 2 DROP; Start 12/07/16 at 18:05 Acetaminophen/ Hydrocodone Bitart 1-2 Tabs BID PRN PO Last administered on 12/08t 10:41; Admin Dose 1 TABLET; Start 12/07/16 at 18:45 Allergies: Coded Allergies: TAPE (Verified Allergy, Severe, Sensitive Skin/Blisters (Paper& [place]) , 12/07/16) gabapentin (Verified Allergy, Severe, Edema, 12/07/16) meperidine (Verified Allergy, Severe, Seizures, 12/07/16) phenytoin (Verified Allergy, Severe, "I Turn Black", 12/07/16) ciprofloxacin (Verified Allergy, Intermediate, 12/07/16) Reported reaction from RN at [facility] deferasirox (Verified Allergy, Unknown, 12/07/16) latex (Verified Allergy, Unknown, 12/07/16) codeine (Verified Adverse Reaction, Mild, itching, 12/07/16) calcium (Verified Adverse Reaction, Unknown, CALCIUM CITRATE, 12/07/16) Uncoded Allergies: HAYFEVER (Allergy, Unknown, 07/16/16) STRAWBERRIES, (Allergy, Unknown, 07/16/16) Family History Family History Dad of diabetic complications. Mother who had lung cancer and of pneumonia at 72 years old. Brother who had an [place] in his 40's and is alive and well. Social History Hx Alcohol Use: NoAlcoholic Drinks Per Day: sometimes 1-2Hx Substance Use: No Hx Tobacco Use: Yes (remote history) Smoking Status: Former Smoker (2 ppd x 12-15 years) Living Arrangement: Assisted Living Exam Vital Signs Vital Sign - Last Date Time Temp Pulse Resp B/P Pulse Ox O2 Delivery O2 Flow Rate FiO2 12/08/16 12:15 36.8 70 20 135/66 99 Nasal Cannula 2.00 Intake and Output 12/07/16 12/07/16 12/08/16 Cumulative From/Thru 15:00 23:00 07:00 12/07/16 14:34 - 12/08/16 06:26 Intake Total 460 ml 1134 ml 1594 ml Output Total 2 ml 2 ml Balance 460 ml 1132 ml 1592 ml Intake Oral 0 ml 0 ml 0 ml IV Total 460 ml 1134 ml 1594 ml Output Urine Total 2 ml 2 ml # Voids 1 1 # Bowel Movements 0 0 Objective General: Elderly obese female in no acute distress, well-developed, well- nourished, appropriately interactive. HEENT: Normocephalic, atraumatic. External ears without defect. Pupils equal, round, and reactive to light. Anicteric sclerae, moist conjunctivae, and no lid lag. Oropharynx free of erythema and cobble stoning with moist mucosa. Neck: Supple with full range of motion. No jugular venous distension. No bruits. No lymphadenopathy or thyromegaly. Cardiovascular: Regular rate and rhythm without rubs or gallops appreciated. Systolic 2/5 murmur appreciated. No abdominal bruit. Capillary refill <3 seconds. Pulmonary: Clear to auscultation bilaterally with no crackles, wheezes, or rhonchi. Normal respiratory effort with no use of accessory muscles. Abdomen: Obese, soft, no tenderness, nondistended. No hepatosplenomegaly or masses appreciated. : [place] absent. Extremities: No clubbing, cyanosis, or edema. Skin: Normal temperature, turgor, and texture; no rash, ulcers, or subcutaneous nodules appreciated. Neurological: Cranial nerves grossly intact. Normal muscle strength, tone, and bulk. Reflexes, coordination, and sensory function within normal limits. No known gait impairment. Psychiatric: Normal mood and affect. Alert and oriented to person, place, and time. Lab and Diagnostics Labs CBC Test 12/08/16 06:47 White Blood Count 2.6th/mm3 (3.8-10.1) Red Blood Count 2.99mil/mm3 (3.90-5.20) Hemoglobin 10.1g/dL (12.0-15.6) Hematocrit 31.3% (35.0-46.0) Mean Corpuscular Volume 104.7fL (81-100) Mean Corpuscular Hemoglobin 33.8pg (27.0-35.0) Mean Corpuscular Hemoglobin Concent 32.3% (32.0-37.0) Red Cell Distribution Width 13.5% (12.3-15.4) Platelet Count 135bil/L (150-400) Neutrophils (%) (Auto) 49.5% (40-74) Lymphocytes (%) (Auto) 33.2% (14-46) Monocytes (%) (Auto) 11.5% (4-12) Eosinophils (%) (Auto) 3.1% (0-5) Basophils (%) (Auto) 1.9% (0-3) CMP Test 12/07/16 10:05 12/07/16 21:10 12/08/16 06:47 Magnesium Level 1.9mg/dL Total Bilirubin 0.4mg/dL Aspartate Amino Transf (AST/SGOT) 18U/L Alanine Aminotransferase (ALT/SGPT) 9U/L Alkaline Phosphatase 78U/L Total Protein 7.6g/dL Albumin 4.0g/dL Total Creatine Kinase 82U/L Creatine Kinase MB 7.2ng/mL Creatine Kinase MB % 8.8% Sodium Level 138mEq/L Potassium Level 4.1mEq/L Chloride Level 105mEq/L Carbon Dioxide Level 21mmol/L Blood Urea Nitrogen 25mg/dL Creatinine 1.34mg/dL Estimat Glomerular Filtration Rate 56mL/min Glucose Level 100mg/dL Calcium Level 8.9mg/dL Troponin T 0.336ug/L Triglycerides Level 83mg/dL Cholesterol Level 169mg/dL LDL Cholesterol, Calculated 93.400mg/dL VLDL Cholesterol 16.600mg/dL HDL Cholesterol 59mg/dL Cholesterol/HDL Ratio 2.86 Thyroid Stimulating Hormone (TSH) 0.703uIU/mL Free Thyroxine 1.43ng/dL Result Diagram: 12/08/16 0647 12/08/16 0647 Additional Diagnostics: Echocardiogram Report Name: RADHA LITTLEudjamee Date: Height: 66 in Hospital Exam Location: [facility] Weight: 177 lb Gender: Female BSA: 1.9 m2 : 1945 Age: 71 yrs BP: 115/75 mmHg Reason For Study: Chest pain Ordering Physician: Performed By: [facility] Interpretation Summary The left ventricle is normal in size. Left ventricular systolic function is moderately reduced. The ejection fraction is estimated to be 30-35%. There is akinesis along the distal 1/3 LV segments. There is hypokinesis along the middle 1/3 of LV segments. The basal or proximal 1/3 of LV segments are either normokinetic or hyperkinetic. Findings are suspicious for stress induced cardiomyopathy, but cannot completely exclude LAD infarction. Assessment of diastolic parameters indicates a relaxation abnormality of the left ventricle, consistent with normal filling pressures. The right ventricle is normal in size and function. There is a pacemaker lead in the right ventricle. Pulmonary artery pressures cannot be estimated because of the lack of a measurable TR jet velocity. The left atrium is moderately dilated. There is mild to moderate mitral regurgitation. There is no other significant valvular heart disease. Assessment & Plan Problems: (1) Non-ST elevation myocardial infarction (NSTEMI) Plan: Patient's presentation is certainly classic for acute coronary syndrome or non-ST elevation myocardial infarction. However her echocardiogram shows findings are suspicious for stress-induced cardiomyopathy. Given that there is still a possibility that she is experiencing acute coronary syndrome I would like to continue with her clopidogrel, IV heparin, aspirin, and atorvastatin. Given that this is most likely stress-induced cardiomyopathy, I would like to up titrate her metoprolol tartrate to 25 mg every 6 hours. I will continue with this for the next one to 2 days and possibly reconsider a limited echocardiogram on Saturday to reassess. If her EF and LV wall motion abnormalities do not improve by Saturday then suddenly we can consider coronary angiogram to further delineate her coronary anatomy. I will like to obtain notes from her modern dancer at [facility] in [place]. She is somewhat anemic which makes be somewhat concerning but we will see how she does on multiple blood thinners on board over the next one to 2 days. Status: Acute ICD Code: I21.4 VTE Prophylaxis: Other (Heparin gtt ) Resuscitation Status: CPR: Attempt Resuscitation Time spent 80 minutes Mitesh Lord MD Dec 08, 2016 17:14
[2016-12-08] MEDS: MeTOProlol 1 mg/mL 5 mL Inj IVPUSH SCH ×2 (17:25→17:41)
--- NOTE | 2016-12-08 19:41 | NUR ---
[place] tinged sputum Pt. coughed up a small amount of pink sputum. Md notified. Pt. had 4-5 more episodes of same colored sputum over the course of several hours. MD again notified. Humidity applied to oxygen. Will continue to monitor, and pt. says breathing feels less dry and has not been coughing anything pink since then.
--- NOTE | 2016-12-08 19:44 | NUR ---
Chest pain At 1650, pt. c/o nausea. While I was giving ondansetron, pt. 9/10 c/o chest pain/pressure, arm pain and jaw pain. Nitro X3 given, MD and chargeback analyst present to evaluate. Stamping Operator contacted and orders received. Pt. had slight increase in blood pressure with chest pain, but otherwise stable. Morphine 1 mg given x2. Metoprolol IV 2.5 mg given x2. EKG done by RT. Pt. closely monitored and says chest pain decreased to 2/10 after all medication administration. Will continue to monitor.
[2016-12-08] MEDS: Tolterodine ER 2 mg ER24 Capsule PO SCH (21:09)
[2016-12-09] VITALS (8 sets, daily range): BP systolic 92–154; BP diastolic 70–78; PULSE 70–74; RESP 18–20; O2SAT 92–96
--- NOTE | 2016-12-09 00:15 | NUR ---
skin patient with reddened sacral skin. blanches easily. placed mepilex. signed and dated. educated patient on the importance of staying off sacrum, moving side to side. patient verbalized understanding.
[2016-12-09] MEDS: HYDROcodone-APAP 5-325 mg Tablet PO PRN (03:59)
[2016-12-09 07:06] LABS: BASOPHILS % (AUTO) 0.6 % (0-3); EOSINOPHILS % (AUTO) 1.5 % (0-5); MONOCYTES % (AUTO) 8.9 % (4-12); Mean Corpuscular Hemoglobin 33.3 pg (27.0-35.0); Mean Corpuscular Volume 103.4 fL (81-100); NEUTROPHILS % (AUTO) 64.5 % (40-74); Platelet Count 128 bil/L (150-400)
[2016-12-09] MEDS: Fluticasone 250 mCg Inhaler INHALATION SCH ×2 (08:54→21:41)
[2016-12-09] MEDS: 0.9% Sodium Chloride 1,000 ML IV SCH (08:54)
[2016-12-09] MEDS: Artificial Tears 15 mL Ophthalmic Solution BOTH_EYES PRN (08:54)
[2016-12-09] MEDS: PARoxetine 20 mg Tablet PO SCH (08:55)
--- NOTE | 2016-12-09 10:44 | PCM.PNCARD ---
Subjective Date of service Dec 09, 2016 Chief Complaint chest pain History of Present Illness Last night she had episode of CP but was easily treated with IV metoprolol. Just prior to her CP I just learned based on her echocardiogram that she most likely has stress induced CMP. I just started her on metoprolol around the clock but she started to have CP about this time so we treated it with IV metoprolol 2.5 mg x2 and that helped. Since then we have increased her metoprolol tartrate to 50 mg q6h. She denies any more chest pain. Unfortunately, her anemia has worsened. Her creatinine has remained stable. Constitutional: Denies: Chills, Fever ENT: Denies: Ear Discharge, Ear Pain Eyes: Denies: Blurred Vision Cardiovascular: Reports: Chest Pain Respiratory: Denies: Cough Gastrointestinal: Denies: Abdominal Pain, Blood in stool (red) Genitourinary: Denies: No burning or pain with urination Musculoskeletal: Denies: Ankle Pain Neurological: Denies: Confusion Endocrine: Reports: Blood Glucose Review Exam Vital Signs Vital Sign - Last Date Time Temp Pulse Resp B/P Pulse Ox O2 Delivery O2 Flow Rate FiO2 12/09/16 10:16 70 12/09/16 09:49 Supplement Oxygen 12/09/16 09:23 36.8 18 128/73 96 2.00 Intake and Output 12/08/16 12/08/16 12/09/16 Cumulative From/Thru 15:00 23:00 07:00 12/07/16 14:34 - 12/09/16 06:09 Intake Total 1875 ml 1360 ml 4829 ml Output Total 800 ml 800 ml 1602 ml Balance 1075 ml 560 ml 3227 ml Intake Oral 636 ml 400 ml 1036 ml IV Total 1239 ml 960 ml 3793 ml Output Urine Total 800 ml 800 ml 1602 ml # Voids 1 # Bowel Movements 1 0 1 General: Pleasant Cooperative Skin: Warm & dry to touch Head: Normocephalic Eye: EOMS intact No arcus or xanthelasma Ears, Nose & Throat: Ears no gross abnormalities Chest: Clear auscultation w/o rales/wheeze Cardiac: Regular rhythm No murmurs Abdomen: Soft, non-distended, non-tender Extremities: Warm w/o deformities,erythema noted Neurological: Alert & oriented Psychological: Affect & interaction appropriate Lab and Diagnostics Labs CBC Test 12/09/16 06:40 White Blood Count 3.3th/mm3 (3.8-10.1) Red Blood Count 2.67mil/mm3 (3.90-5.20) Hemoglobin 8.9g/dL (12.0-15.6) Hematocrit 27.6% (35.0-46.0) Mean Corpuscular Volume 103.4fL (81-100) Mean Corpuscular Hemoglobin 33.3pg (27.0-35.0) Mean Corpuscular Hemoglobin Concent 32.2% (32.0-37.0) Red Cell Distribution Width 13.4% (12.3-15.4) Platelet Count 128bil/L (150-400) Neutrophils (%) (Auto) 64.5% (40-74) Lymphocytes (%) (Auto) 23.6% (14-46) Monocytes (%) (Auto) 8.9% (4-12) Eosinophils (%) (Auto) 1.5% (0-5) Basophils (%) (Auto) 0.6% (0-3) CMP Test 12/07/16 10:05 12/07/16 21:10 12/08/16 06:47 12/09/16 06:40 Magnesium Level 1.9mg/dL Total Creatine Kinase 82U/L Creatine Kinase MB 7.2ng/mL Creatine Kinase MB % 8.8% Troponin T 0.336ug/L Triglycerides Level 83mg/dL Cholesterol Level 169mg/dL LDL Cholesterol, Calculated 93.400mg/dL VLDL Cholesterol 16.600mg/dL HDL Cholesterol 59mg/dL Cholesterol/HDL Ratio 2.86 Thyroid Stimulating Hormone (TSH) 0.703uIU/mL Free Thyroxine 1.43ng/dL Sodium Level 140mEq/L Potassium Level 4.8mEq/L Chloride Level 107mEq/L Carbon Dioxide Level 21mmol/L Blood Urea Nitrogen 22mg/dL Creatinine 1.35mg/dL Estimat Glomerular Filtration Rate 56mL/min Glucose Level 99mg/dL Calcium Level 8.7mg/dL Total Bilirubin 0.3mg/dL Aspartate Amino Transf (AST/SGOT) 67U/L Alanine Aminotransferase (ALT/SGPT) 43U/L Alkaline Phosphatase 74U/L Total Protein 6.1g/dL Albumin 3.2g/dL Result Diagram: 12/09/1663912/09/16639 Additional Diagnostics: Echocardiogram Report Name: RADHA LITTLE Date: Height: 66 in Hospital Exam Location: [facility] Weight: 177 lb Gender: Female BSA: 1.9 m2 : 1945 Age: 71 yrs BP: 115/75 mmHg Reason For Study: Chest pain Ordering Physician: Performed By: Rad[facility] Interpretation Summary The left ventricle is normal in size. Left ventricular systolic function is moderately reduced. The ejection fraction is estimated to be 30-35%. There is akinesis along the distal 1/3 LV segments. There is hypokinesis along the middle 1/3 of LV segments. The basal or proximal 1/3 of LV segments are either normokinetic or hyperkinetic. Findings are suspicious for stress induced cardiomyopathy, but cannot completely exclude LAD infarction. Assessment of diastolic parameters indicates a relaxation abnormality of the left ventricle, consistent with normal filling pressures. The right ventricle is normal in size and function. There is a pacemaker lead in the right ventricle. Pulmonary artery pressures cannot be estimated because of the lack of a measurable TR jet velocity. The left atrium is moderately dilated. There is mild to moderate mitral regurgitation. There is no other significant valvular heart disease. Assessment & Plan Problems: (1) Stress-induced cardiomyopathy Plan: Based on her echo study yesterday it appears that she is having stress induced CMP. I have aggressively titrated her beta blockers since yesterday afternoon. She is tolerating this well. I am hoping that this is the case since her anemia has worsened since starting her on IV heparin and ASA. I am concerned about proceeding to a heart catheterization since her hemoglobin has dropped. We will continue to monitor her Hgb. One may consider a GI workup if this has not been recently completed. She sees an train brake operator at [facility] in [place] and apparently she has been receiving injections weekly for her anemia. If indeed this is stress induced then her prognosis is usually good with aggressive beta dina therapy. Consider repeating a limited echo study on Saturday if she continues to remain stable and if her LVEF and LV wall motion abnormalities improve then she may go home with metoprolol succinate 50 mg twice a day. If her Hgb continues to drop then stop IV Heparin and consider PRBCs. For now, we will watch her from a distance if she continues to remain stable. If she has recurrent chest pain like she did yesterday afternoon, then we may to reconsider coronary angiogram. Status: Acute ICD Code: I51.81 VTE Prophylaxis: Other (Heparin gtt ) Resuscitation Status: CPR: Attempt Resuscitation Time spent 20 minutes Mitesh Lord MD Dec 09, 2016 10:44
--- NOTE | 2016-12-09 12:55 | PCM.PNMED ---
Subjective Date of Service Dec 09, 2016 Subjective Camila Sharpe is a 71-year-old female with a past medical history significant for bipolar disorder and intermittent psychosis, diabetes mellitus type II, diet controlled, hypertension, hyperlipidemia, pacemaker placement, remote CVA with hemiparesis, CKD stage II, who presented to [facility] via EMS from [facility] facility due to chest pain. Hospital day #3. Overnight: There were no acute events. Telemetry overnight was AV paced, heart rate 70, occasional PVCs. The patient is resting in bed comfortably and in no acute distress. She denies headache, shortness of breath, palpitation, abdominal pain, nausea, vomiting, fever, chills, dysuria, diarrhea or constipation. She does endorse intermittent chest pain while choking/coughing during eating and activity which is NOT chronic in nature. She is voiding and eliminating without difficulty. She is up ambulating minimally with assistance. . Exam Vital Signs Vital Sign - Last Date Time Temp Pulse Resp B/P Pulse Ox O2 Delivery O2 Flow Rate FiO2 12/09/16 10:16 70 12/09/16 09:49 Supplement Oxygen 12/09/16 09:23 36.8 18 128/73 96 2.00 Intake and Output 12/08/16 12/08/16 12/09/16 Cumulative From/Thru 15:00 23:00 07:00 12/07/16 14:34 - 12/09/16 06:09 Intake Total 1875 ml 1360 ml 4829 ml Output Total 800 ml 800 ml 1602 ml Balance 1075 ml 560 ml 3227 ml Intake Oral 636 ml 400 ml 1036 ml IV Total 1239 ml 960 ml 3793 ml Output Urine Total 800 ml 800 ml 1602 ml # Voids 1 # Bowel Movements 1 0 1 Exam General: Elderly obese female in no acute distress, well-developed, well- nourished, appropriately interactive. HEENT: Normocephalic, atraumatic. External ears without defect. Pupils equal, round, and reactive to light. Anicteric sclerae, moist conjunctivae, and no lid lag. Oropharynx free of erythema and cobble stoning with moist mucosa. Neck: Supple with full range of motion. No jugular venous distension. No bruits. No lymphadenopathy or thyromegaly. Cardiovascular: Regular rate and rhythm without rubs or gallops appreciated. Systolic 2/5 murmur appreciated. No abdominal bruit. Capillary refill <3 seconds. Pulmonary: Clear to auscultation bilaterally with no crackles, wheezes, or rhonchi. Normal respiratory effort with no use of accessory muscles. Abdomen: Obese, soft, no tenderness, nondistended. No hepatosplenomegaly or masses appreciated. : Pierson absent. Extremities: No clubbing, cyanosis, or edema. Left leg brace with leg length discrepancy R>L. Skin: Normal temperature, turgor, and texture; no rash, ulcers, or subcutaneous nodules appreciated. Neurological: Cranial nerves grossly intact. Normal muscle strength, tone, and bulk. Reflexes, coordination, and sensory function within normal limits. No known gait impairment. Psychiatric: Normal mood and affect. Alert and oriented to person, place, and time. . IVs and Medications Medications Reviewed: Medications were reviewed in detail Lab and Diagnostics Item Value Date Time Thyroid Stimulating Hormone (TSH) 0.703 uIU/mL 12/08/16 0647 Free Thyroxine 1.43 ng/dL 12/08/16 0647 Item Value Date Time Triglycerides Level 83 mg/dL 12/08/16 0647 Cholesterol Level 169 mg/dL 12/08/16 0647 LDL Cholesterol, Calculated 93.400 mg/dL 12/08/16 0647 VLDL Cholesterol 16.600 mg/dL 12/08/16 0647 HDL Cholesterol 59 mg/dL 12/08/16 0647 Cholesterol/HDL Ratio 2.86 12/08/16 0647 Item Value Date Time Calcium Level 8.7 mg/dL 12/09/16 0640 Total Bilirubin 0.3 mg/dL 12/09/16 0640 Aspartate Amino Transf (AST/SGOT) 67 U/L H 12/09/16 0640 Alanine Aminotransferase (ALT/SGPT) 43 U/L H 12/09/16 0640 Alkaline Phosphatase 74 U/L 12/09/16 0640 Total Protein 6.1 g/dL L 12/09/16 0640 Albumin 3.2 g/dL L 12/09/16 0640 Result Diagram: 12/09/16 0640 12/09/16 0640 X-Rays, CTs and MRIs X-RAY CHEST ONE VIEW, PORTABLE IMPRESSION: No acute disease Dictated by: Kyrei Avila M.D. on 12/07/2016 at 10:42 Approved by: Kyrie Avila M.D. on 12/07/2016 at 10:47 . 12-lead ECG EKG: AV paced, heart rate 70. Cardiac Echo Impressions Echocardiogram Interpretation Summary: The left ventricle is normal in size. Left ventricular systolic function is moderately reduced. The ejection fraction is estimated to be 30-35%. There is akinesis along the distal 1/3 LV segments. There is hypokinesis along the middle 1/3 of LV segments. The basal or proximal 1/3 of LV segments are either normokinetic or hyperkinetic. Findings are suspicious for stress induced cardiomyopathy, but cannot completely exclude LAD infarction. Assessment of diastolic parameters indicates a relaxation abnormality of the left ventricle, consistent with normal filling pressures. The right ventricle is normal in size and function. There is a pacemaker lead in the right ventricle. Pulmonary artery pressures cannot be estimated because of the lack of a measurable TR jet velocity. The left atrium is moderately dilated. There is mild to moderate mitral regurgitation. There is no other significant valvular heart disease. Reading Physician:12:12 PM Reading Physician:PM . Assessment & Plan Camila Sharpe is a 71-year-old female with a past medical history significant for bipolar disorder and intermittent psychosis, diabetes mellitus type II, diet controlled, hypertension, hyperlipidemia, pacemaker placement, remote CVA with hemiparesis, CKD stage II, who presented to [facility] via EMS from [facility] facility due to chest pain. Hospital day #3. 1. 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 Active. - Cardiac risk factors include: Hypertension, hyperlipidemia, diabetes mellitus type II, age, smoker, and significant family history. - Patient presented with substernal chest pain with associated diaphoresis, nausea, vomiting, left shoulder and arm pain which resolved with sublingual nitroglycerin. - EKG shows AV pacing, therefore, unreliable. - Troponin initially elevated at 0.22. Patient then had another episode of chest pain with corresponding increased troponin of 0.769. Last troponin ordered trending down. PRN if chest pain. - CK-MB elevated. - Continue metoprolol tartrate 50 mg 3 times a day per cardiology. - Continue aspirin 81 mg daily, Plavix 75 mg daily, Lipitor 40 mg daily at bedtime, and placing the patient NPO for catheterization tomorrow morning.. - Continue cardiac heparin gtt. - Continue to monitor closely on telemetry. - If the patient continues to have chest pain recommend starting a nitroglycerin drip. - Recent echocardiogram basal inferior wall severe hypokinesis, basal posterolateral wall severe hypokinesis, and proximal mid posteriolateral wall severe hypokinesis. - Ordered fasting lipid panel to be performed tomorrow morning with a.m. labs. - Dr. Young of cardiology was consulted and plans for catheterization in the morning. We appreciate their time and care of the patient. - Consider repeating a limited echocardiogram on Saturday per cardiology. If her Hgb continues to drop then stop IV Heparin and consider PRBCs. For now, we will watch her from a distance if she continues to remain stable. If she has recurrent chest pain like she did yesterday afternoon, then we may to reconsider coronary angiogram. 2. Macrocytic anemia, chronicity unknown, present on admission. Active. - No overt signs of bleeding. The patient denies hematochezia or melena. Ordered stool guaiac. - Continue to monitor H&H and signs of bleeding daily. - Ordered B12 and folate, pending. Chronic problems: Hypertension, chronic. - Continue metoprolol tartrate 50 mg 3 times daily. Hyperlipidemia, chronic. - Continue atorvastatin 40 mg daily at bedtime. Diabetes mellitus type II, diet controlled. - Last hemoglobin A1c 4.6% on 05/2016. Repeat hemoglobin A1c pending. - Continue low dose correctional scale insulin. - Continue carbohydrate consistent/heart healthy diet. Gastroesophageal reflux disease, chronic. - Continue famotidine 20 mg daily. Hypothyroidism, chronic. - Continue levothyroxine 100 g daily. Chronic hypoproliferative anemia. - History of chronic anemia secondary to CKD, requiring transfusions. - The patient reports receiving transfusions every 3-4 months. - Continue to monitor daily. Bipolar disorder type I, chronic - Continue olanzapine 5 mg daily and fluoxetine 20 mg daily.. Chronic pain with opiate habituation, chronic. - Continue hydrocodone 5-325 mg 1-2 tablets every 4 hours as needed for pain. Incontinence, chronic. - Continue oxybutynin ER 10 mg daily. Remote CVA with left hemiparesis. - Continue aspirin 81 mg daily and atorvastatin 40 mg daily at bedtime. Obstructive sleep apnea not on CPAP. Remote history of tobacco use. Bradycardia status post pacemaker. PRN antiemetics: Zofran and Maalox. PRN bowel regimen: Senna and MiraLAX. PRN analgesics: Tylenol. Patient is admitted under inpatient status with expected length of stay greater than 2 midnights due to severity of presenting symptoms, risk of adverse event, and complexity of treatment plan. . VTE Prophylaxis: Other (Heparin gtt ) Resuscitation Status: CPR: Attempt Resuscitation Attending Statement The patient was seen and examined together with Dr. Marquez on 12-09-16 and I agree with the history, exam and plan as outlined in the note above. Marj Marquez DO Dec 09, 2016 12:55 Rizwan Beaver MD Dec 10, 2016 07:34
--- NOTE | 2016-12-09 13:44 | NUR ---
Social Work: Initial Assessment Data: Pt is a 71 y/o female admitted for chest pain. Pt's PCP is Dr Jin, pt's insurance is Medicare with [employer]. EMR reviewed, readmit scroe is 3. DPOA/AD in chart. ETL ANALYST met with pt who states that she lives at [facility] in [place] where she uses a walker, dos not drive, has hx of HH and SNF ([facility]) and has no LTC or VA benefits. Pt is not a caregiver. ETL ANALYST called [facility] who confirms that pt is a resident there in their assisted living facility. ETL ANALYST will call regarding in an assessment is needed before pt can return. ETL ANALYST will continue to to follow. Assessment: Pt from [facility]. Plan: Pt will d/c back to [facility] when medically stable for d/c. ETL ANALYST will call [facility] regarding in an assessment is needed before pt can return. ETL ANALYST will continue to to follow. ALBERT Pemberton Addendum: 12/09/16 at 1347 by ZORAN AIRAS Amended: Links added.
[2016-12-09] MEDS: Heparin 25K Unit/500mL 0.45 NS 25,000 UNIT in IV Premix 1 EACH IV SCH (14:28)
[2016-12-09 15:02] LABS: Mean Corpuscular Hemoglobin 33.3 pg (27.0-35.0); Mean Corpuscular Volume 103.3 fL (81-100)
--- NOTE | 2016-12-09 18:23 | NUR ---
Heparin gtt Assumed care late afternoon. Heparin gtt infusing per cardiac protocol at 1125units/hr. Most recent PTT resulted within goal. Next check in 6hr and ordered in computer. Tele monitoring continues. Awaiting further cardiology input at this time.
[2016-12-09] MEDS: Tolterodine ER 2 mg ER24 Capsule PO SCH (21:42)
[2016-12-09] MEDS: Heparin 5,000 Unit/mL Inj IVPUSH PRN (23:48)
[2016-12-10] VITALS (8 sets, daily range): BP systolic 109–148; BP diastolic 65–86; PULSE 70–76; RESP 18–20; O2SAT 91–97
--- NOTE | 2016-12-10 05:30 | NUR ---
Uneventful Night A&Ox3. Denied chest pain throughout shift. Denies SOB. Patient pleasant and compliant with care.
[2016-12-10 07:39] LABS: Mean Corpuscular Hemoglobin 32.7 pg (27.0-35.0)
[2016-12-10 07:40] LABS: BASOPHILS % (AUTO) 0.3 % (0-3); EOSINOPHILS % (AUTO) 0.8 % (0-5); MONOCYTES % (AUTO) 10.2 % (4-12); NEUTROPHILS % (AUTO) 70.1 % (40-74); Platelet Count 127 bil/L (150-400)
[2016-12-10 08:20] LABS: Magnesium 1.5 mg/dL (1.6-2.6)
[2016-12-10] MEDS: Fluticasone 250 mCg Inhaler INHALATION SCH ×2 (08:44→21:13)
[2016-12-10] MEDS: HYDROcodone-APAP 5-325 mg Tablet PO PRN ×2 (08:45→19:56)
[2016-12-10] MEDS: PARoxetine 20 mg Tablet PO SCH (08:45)
[2016-12-10] MEDS ORDERED: Magnesium Chloride SR 64 mg ER24 Tablet PO ONE (09:05)
[2016-12-10] MEDS ORDERED: Magnesium Sulf 4 Gm/100 mL H2O 4 GM in IV Premix 1 EACH IV ONE (09:35)
--- NOTE | 2016-12-10 13:20 | NUR ---
Social Work Continued Discharge Planning: Patient is from [facility], [phone]. Per report in rounds, patient to obtain echo tomorrow. SW spoke to [facility] and spoke to [facility] who states that bedside assessment to be conducted today at 2:30pm. SW will ensure follow up with [facility] liaison to ensure patient able to rerun at discharge. SW will continue to follow. PLAN: Return back to [facility], pending bedside assessment [place] PRICE
--- NOTE | 2016-12-10 13:59 | PROG NOTE ---
[address] [address] PROGRESS NOTE PATIENT: RADHA LITTLE : 1945 MR#: [id number] ADMIT: 12/07/2016 JOB ID: [id number] DATE: 12/10/2016 SUBJECTIVE: Patient lying on bed. No active chest pain or shortness of breath, PND, orthopnea, or new cardiovascular symptoms. In summary, this 71-year-old, pleasant female, who has a history of type 2 diabetes mellitus, hypertension, hyperlipidemia, obstructive sleep apnea, sick sinus syndrome, status post [employer] dual-chamber pacemaker insertion in 2007, chronic anemia, GERD, hypothyroidism, chronic kidney disease, bipolar disorder, depression, anxiety, who lives in assisted living facility, presented on December 07, 2016, with symptoms of chest discomfort and nausea, jaw pain, left arm discomfort. There was suspicion for acute coronary syndrome and unstable angina. Her troponin was abnormal. However, patient underwent echocardiogram on December 08, 2016, which was suggestive of likely stress-induced cardiomyopathy with LV ejection fraction 30% to 35% with akinesis along the distal one-third of LV segments, and basal segments of LV were hyperkinetic to normokinetic. Normal right ventricular function. Mild to moderate mitral regurgitation. From Cardiology Service, patient was seen by Dr. Lord. Keeping the possibility of stress-induced cardiomyopathy, beta dina was increased. She she responded to medical treatment. She has a chronic anemia. She received IV heparin for 48 hours, which was discontinued today. OBJECTIVE: Blood pressure 136/84, heart rate 70, respiratory rate 18, oxygen saturation, room air, 95%. She has negative balance of 1550 mL today. Clinically, no apparent JVP. Chest: No obvious crepitation or rhonchi. CVS: S1, S2 normal. No S3, S4. Soft ejection systolic murmur at the base. Abdomen: Obese. No obvious pulsatile mass. Extremities: No significant pedal edema. Vascular: No evidence of critical limb ischemia. ROUTER OPERATOR: Patient is alert, oriented to time, place, and person. Telemetry: Patient has AV synchronized paced rhythm. LABORATORY: Sodium 138, potassium 4.3, BUN 20, creatinine 1.35. On June 18, 2016, it was about 1.8, and in June, 1.88. Magnesium 1.5. Total bilirubin 0.3, AST 67, ALT 43. Her CPK was 82 and troponin T was 0.769, which has decreased to 0.336. WBC 3.8, hemoglobin 9.1, MCV 104, platelets 127. Stool for occult blood was negative on December 09. Triglyceride 83, total cholesterol 169, LDL 93, HDL 59. TSH 0.703. The patient also has moderate carotid artery disease in the past involving bilateral internal carotid artery disease. ASSESSMENT/PLAN: Symptoms of chest pain, shortness of breath with possibility of unstable angina, abnormal troponin with clinical suspicion for acute coronary syndrome. However, on 2D echo, wall motion abnormalities suggest likely stress-induced cardiomyopathy. Considering her coronary artery disease risk factors, ischemic heart disease cannot be ruled out. She had a perfusion study in January 2014. At that time, she did not have any significant ischemia and left ventricular ejection fraction was about 72%. Clinically, she is responding to medical treatment. At present, she appears compensated. Clinically, she is not in heart failure. No evidence of critical limb ischemia. I do not appreciate any obvious carotid bruit. Her left ventricular ejection fraction is 30% to 35%. She is on about 200 mg of Lopressor total dose. At this point of time, I will start her on DARRION inhibitor as well. Will start with lisinopril 2.5 mg daily. She is on anti-platelet therapy and high-intensity statin, which we will continue. Down the road, if there is no worsening of creatinine and electrolytes remain stable, will recommend trial of small dose of Aldactone like 12.5 mg daily to begin with. We will plan to repeat echocardiogram tomorrow to see any improvement in LV function. If there is no improvement in LV function, then heart catheterization would be a reasonable option; however, is going to be high risk because of underlying renal insufficiency. She also has chronic anemia. At present, she is not actively bleeding. It looks like she has pancytopenia. Her WBC count is low, hemoglobin low, platelets low. 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 Before we plan invasive cardiac workup, will recommend getting feedback for her director of strategic sourcing and clearance. Total time spent today, about 45 minutes.
--- NOTE | 2016-12-10 14:59 | NUR ---
Cardiac/Pain/Activity Pt has been chest pain free throughout day. Vitals remain stable w/ additions to cardiac meds. Heparin gtt d/c'd by cardiology. Per hearing aid technician, pt had one 1.83 second pause this afternoon. Pt medicated w/ 1 tab vicodin X1 this morning for left hip pain. Pt has been able to ambulate to bathroom, w/ FWW, SBA. Up to chair frequently.
--- NOTE | 2016-12-10 16:28 | PCM.PNMED ---
Subjective Date of Service Dec 10, 2016 Subjective Camila Sharpe is a 71-year-old female with a past medical history significant for bipolar disorder and intermittent psychosis, diabetes mellitus type II, diet controlled, hypertension, hyperlipidemia, pacemaker placement, remote CVA with hemiparesis, CKD stage II, who presented to [facility] Emergency Department via EMS from [facility] due to chest pain. Hospital day #4. Overnight, telemetry reports that she had 4 pauses: 2.1, 2.3, 1.6 and another at 1.6 seconds. She states that she is feeilng "OK" and denies any nausea, vomiting, diarrhea, chest pain, chest palpitations or headache. She is able to ambulate and eat. This is hospital day 4. . Exam Vital Signs Vital Sign - Last Date Time Temp Pulse Resp B/P Pulse Ox O2 Delivery O2 Flow Rate FiO2 12/10/16 14:40 76 115/65 12/10/16 11:45 95 Room Air 12/10/16 08:40 36.9 18 12/10/16 05:11 2.00 Intake and Output 12/09/16 12/09/16 12/10/16 Cumulative From/Thru 15:00 23:00 07:00 12/07/16 14:34 - 12/10/16 05:10 Intake Total 614 ml 1596 ml 7039 ml Output Total 1375 ml 2977 ml Balance 614 ml 221 ml 4062 ml Intake Oral 1596 ml 2632 ml IV Total 614 ml 4407 ml Output Urine Total 1375 ml 2977 ml # Voids 1 # Bowel Movements 2 3 Exam General: alert, oriented x3, cooperative, no acute distress Eyes: scleral anicteric Mouth: mucous membranes moist/pink Neck: supple Chest & Lungs: clear to auscultation, no adventitious breath sounds, no crackles , no wheeze Cardiovascular: Paced rhythm, normal S1 & S2 Pulses: dorsalis pedi (present and equal) Abdomen: soft, non-tender, non-distended, normoactive bowel tones Musculoskeletal: brace on her left leg Extremities: very mild edema B/L LE, no cyanosis, no clubbing Neurological: Grossly neurologically intact, normal speech . IVs and Medications Medications Reviewed: Medications were reviewed in detail Lab and Diagnostics Result Diagram: 12/10/1651412/10/1615 X-Rays, CTs and MRIs X-RAY CHEST ONE VIEW, PORTABLE IMPRESSION: No acute disease Dictated by: Kyrie Avila M.D. on 12/07/2016 at 10:42 Approved by: Kyrie Avila M.D. on 12/07/2016 at 10:47 . 12-lead ECG EKG: AV paced, heart rate 70. Cardiac Echo Impressions Echocardiogram Interpretation Summary: The left ventricle is normal in size. Left ventricular systolic function is moderately reduced. The ejection fraction is estimated to be 30-35%. There is akinesis along the distal 1/3 LV segments. There is hypokinesis along the middle 1/3 of LV segments. The basal or proximal 1/3 of LV segments are either normokinetic or hyperkinetic. Findings are suspicious for stress induced cardiomyopathy, but cannot completely exclude LAD infarction. Assessment of diastolic parameters indicates a relaxation abnormality of the left ventricle, consistent with normal filling pressures. The right ventricle is normal in size and function. There is a pacemaker lead in the right ventricle. Pulmonary artery pressures cannot be estimated because of the lack of a measurable TR jet velocity. The left atrium is moderately dilated. There is mild to moderate mitral regurgitation. There is no other significant valvular heart disease. Reading Physician:12:12 PM Reading Physician:PM . Assessment & Plan Camila Sharpe is a 71-year-old female with a past medical history significant for bipolar disorder and intermittent psychosis, diabetes mellitus type II, diet controlled, hypertension, hyperlipidemia, pacemaker placement, remote CVA with hemiparesis, CKD stage II, who presented to [facility] Emergency Department via EMS from [facility] due to chest pain. Hospital day #4. 1. Stress induced cardiomyopathy likely per cardiology (versus NSTEMI), chronicity unknown, present on admission. Resolving. - Cardiac risk factors include: Hypertension, hyperlipidemia, diabetes mellitus type II, age, smoker, and significant family history. - Patient presented with substernal chest pain with associated diaphoresis, nausea, vomiting, left shoulder and arm pain which resolved with sublingual nitroglycerin. - EKG shows AV pacing, therefore, unreliable. - 4 pauses per telemetry last night about 20:00. 2.1, 2.3, 1.6, 1.[address] Young of cardiology who said to contact [employer] for interrogation. I contacted Mervin Wolf, rep in the area for [employer], who will take care of this today or tomorrow. - Troponin initially elevated at 0.22. Patient then had another episode of chest pain with corresponding increased troponin of 0.769. Last troponin ordered trending down. PRN if chest pain. - CK-MB elevated. - Continue metoprolol tartrate 50 mg, now Q 6 hours per cardiology. - Continue aspirin 81 mg daily, Plavix 75 mg daily, Lipitor 40 mg daily at bedtime - Cardiac heparin gtt was discontinued today by cardiology in light of worsening anemia - Magnesium monitored closely in light of cardiac problems and decreased to 1.5 today. IV magnesium given & will repeat lab in a.m. - Cardiology ordered lisinopril daily and magnesium PO daily - Continue to monitor closely on telemetry - If the patient continues to have chest pain recommend starting a nitroglycerin drip. - Recent echocardiogram basal inferior wall severe hypokinesis, basal posterolateral wall severe hypokinesis, and proximal mid posteriolateral wall severe hypokinesis. - Fasting lipid panel was good - Dr. Young of cardiology was consulted (please see note). We appreciate their time and care of the patient. - Consider repeating a limited echocardiogram on Saturday per cardiology. If her Hgb continues to drop then stop IV Heparin and consider PRBCs. For now, we will watch her from a distance if she continues to remain stable. If she has recurrent chest pain, may to reconsider coronary angiogram. 2. Macrocytic anemia, chronicity unknown, present on admission. Active. - No overt signs of bleeding. The patient denies hematochezia or melena. Stool occult blood negative. - Continue to monitor H&H and signs of bleeding daily. - Ordered B12 and folate, pending. Chronic problems: Hypertension, chronic. - Continue metoprolol tartrate 50 mg, now Q 6 hours per cardiology. Hyperlipidemia, chronic, controlled - Continue atorvastatin 40 mg daily at bedtime. Diabetes mellitus type II, diet controlled. - Last hemoglobin A1c 4.6% on 05/2016. Repeat hemoglobin A1c pending. - Continue low dose correctional scale insulin. - Continue carbohydrate consistent/heart healthy diet. Gastroesophageal reflux disease, chronic. - Continue famotidine 20 mg daily. Hypothyroidism, chronic. - Continue levothyroxine 100 g daily. Chronic hypoproliferative anemia. - History of chronic anemia secondary to CKD, requiring transfusions. - The patient reports receiving transfusions every 3-4 months. - Continue to monitor daily. Bipolar disorder type I, chronic - Continue olanzapine 5 mg daily and fluoxetine 20 mg daily.. Chronic pain with opiate habituation, chronic. - Continue hydrocodone 5-325 mg 1-2 tablets every 4 hours as needed for pain. Incontinence, chronic. - Continue oxybutynin ER 10 mg daily. Remote CVA with left hemiparesis. - Continue aspirin 81 mg daily and atorvastatin 40 mg daily at bedtime. Obstructive sleep apnea not on CPAP. Remote history of tobacco use. Bradycardia status post pacemaker. PRN antiemetics: Zofran and Maalox. PRN bowel regimen: Senna and MiraLAX. PRN analgesics: Tylenol. Patient is admitted under inpatient status with expected length of stay greater than 2 midnights due to severity of presenting symptoms, risk of adverse event, and complexity of treatment plan. . VTE Prophylaxis: Sub-Q Heparin (Unfractionated) Resuscitation Status: CPR: Attempt Resuscitation Attending Statement The patient was seen and examined together with Dr. Feldman on 12-10-16 and I agree with the history, exam and plan as outlined in the note above. Patient is on IV Morphine Sulfate prn severe pain. Roberta Feldman DO Dec 10, 2016 16:28 Rizwan Beaver MD Dec 11, 2016 09:16
[2016-12-10] MEDS: Heparin 5,000 Unit/mL Inj SUBQ SCH (16:48)
[2016-12-10] MEDS: Ondansetron 2 mg/mL 2 mL Inj IVPUSH PRN ×2 (17:56→18:23)
[2016-12-10] MEDS: Tolterodine ER 2 mg ER24 Capsule PO SCH (21:15)
[2016-12-11] VITALS (8 sets, daily range): BP systolic 106–140; BP diastolic 68–83; PULSE 70–78; RESP 18; O2SAT 91–97
[2016-12-11] MEDS: Heparin 5,000 Unit/mL Inj SUBQ SCH ×3 (00:28→18:24)
[2016-12-11 06:52] LABS: BASOPHILS % (AUTO) 1.2 % (0-3); EOSINOPHILS % (AUTO) 2.8 % (0-5); MONOCYTES % (AUTO) 13.3 % (4-12); Mean Corpuscular Hemoglobin 33.5 pg (27.0-35.0); Mean Corpuscular Volume 101.6 fL (81-100); NEUTROPHILS % (AUTO) 52.2 % (40-74); Platelet Count 111 bil/L (150-400)
[2016-12-11 07:11] LABS: Vitamin B12 848 pg/mL (211-946)
[2016-12-11] MEDS: Fluticasone 250 mCg Inhaler INHALATION SCH ×2 (08:54→22:08)
[2016-12-11] MEDS: PARoxetine 20 mg Tablet PO SCH (08:55)
--- NOTE | 2016-12-11 12:44 | NUR ---
Social Work Continued Discharge Planning: SW conducted discharge planning update. SW met with patient at bedside to discuss discharge plan. Patient states plans to return back to [facility], [phone]. Bedside assessment conducted on 12/10/16 in preoperation for patient to discharge back today. Patient not medically stable at this time. Per report in rounds, patient to undergo repeat echo today. Discussion of possible pace maker placement. SW spoke to [facility] and provided rep Baker with update. Olivia states that patient accepted back upon discharge, but another bedside assessment will need to be conducted closer to discharge. SW will continue to follow. PLAN: Accepted back to [facility]. Bedside assessment conducted 12/10. Further [facility] bedside eval to be conducted again closer to discharge. Discharge pending clinical course. Abimbola PRICE
--- NOTE | 2016-12-11 12:48 | NUR ---
LISET completed with patient at bedside
[2016-12-11] MEDS: HYDROcodone-APAP 5-325 mg Tablet PO PRN (13:10)
--- NOTE | 2016-12-11 13:38 | DRSVH ---
[facility] [address] [place] [address] Echocardiogram Report Name: RADHA LITTLE Date: Height: 66 in Hospital Exam Location: [facility] Weight: 180 lb Gender: Female BSA: 1.9 m2 : 1945 Age: 71 yrs BP: 126/81 mmHg Reason For Study: Chest pain Performed By: Radha Jnag Referring Physician: DIMA CABELLO Interpretation Summary The ejection fraction is estimated to be 30-35%. Left ventricular systolic function is moderately reduced. There is probably slight improvement but overall no significant improvement since prior study. Procedure: A two-dimensional transthoracic echocardiogram with color flow and Doppler was performed in limited views only. The study quality was technically adequate. Comparison is made with the echocardiogram of 12/08/16. The patient has a paced rhythm. Left Ventricle: The left ventricle is normal in size. There is normal left ventricular wall thickness. The ejection fraction is estimated to be 30-35%. There has been no significant change since the previous exam. Left ventricular systolic function is moderately reduced. There is probably slight improvement but overall no significant improvement since prior study. Right Ventricle: The right ventricle is normal in size and function. There is a pacemaker lead in the right ventricle. Mitral Valve: The mitral valve leaflets appear thickened, but open well. There is mild to moderate mitral annular calcification. There is mild mitral regurgitation. Aortic Valve: The aortic valve is moderately calcified. No aortic regurgitation is present. Tricuspid Valve: The tricuspid valve is normal in structure and function. No tricuspid regurgitation. Pulmonary artery pressures cannot be estimated because of the lack of a measurable TR jet velocity. Great Vessels: The inferior vena cava was not visualized. Pericardium/ Pleura There is no pericardial effusion. MMode/2D Measurements & Calculations LVIDd LV fitzpatrick. diameter/BSA (cm/m^2) LV sys. diameter/BSA (cm/m^2) : 4.7 cm LVIDs : 3.0 cm FS: 35.8 % IVSd : 0.8cm LVPWd : 0.5cm Reading Physician:HILDA
[2016-12-11] MEDS: Polyethylene Glycol (PEG) 17 Gm Powder PO PRN (18:39)
[2016-12-11] MEDS: Ondansetron 2 mg/mL 2 mL Inj IVPUSH PRN (18:39)
--- NOTE | 2016-12-11 21:02 | NUR ---
Apprehension P- Pt. appears to have some apprehensive anxiety related to desire to return home, but a desire to stay and have pacemaker replacement on . I- Actively listening to pt. concerns helped. Continued explanation and clarification of the treatment plan is beneficial for this patient. E- Addressing pt. concerns helps to alleviate any anxiousness regarding present situation. S- Bed locked and in low position. call light in reach. Pt. ambulated with assistance only.
--- NOTE | 2016-12-11 21:04 | PCM.PNMED ---
Subjective Date of Service Dec 11, 2016 Subjective Camila Sharpe is a 71-year-old female with a past medical history significant for bipolar disorder and intermittent psychosis, diabetes mellitus type II, diet controlled, hypertension, hyperlipidemia, pacemaker placement, remote CVA with hemiparesis, CKD stage II, who presented to [facility] Emergency Department via EMS from [facility] due to chest pain. Overnight, telemetry reports that she had 1, 3 second pause. She again states that she is feeilng "OK" and denies any nausea, vomiting, diarrhea, chest pain, chest palpitations or headache. She is able to ambulate and eat. This is hospital day 5. Exam Vital Signs Vital Sign - Last Date Time Temp Pulse Resp B/P Pulse Ox O2 Delivery O2 Flow Rate FiO2 12/11/16 15:21 78 124/68 12/11/16 13:32 36.3 18 97 Room Air 12/11/16 04:45 2.00 Intake and Output 12/10/16 12/10/16 12/11/16 Cumulative From/Thru 14:59 22:59 06:59 12/07/16 14:34 - 12/11/16 06:29 Intake Total 193 ml 2275 ml 200 ml 9707 ml Output Total 1550 ml 1300 ml 825 ml 6652 ml Balance -1357 ml 975 ml -625 ml 3055 ml Intake Oral 0 ml 2275 ml 200 ml 5107 ml IV Total 193 ml 4600 ml Output Urine Total 1550 ml 1300 ml 825 ml 6652 ml # Voids 1 # Bowel Movements 0 3 Exam General: alert, oriented x3, cooperative, no acute distress, laying in bed having just completed her limited echocardiogram Eyes: scleral anicteric Mouth: mucous membranes moist/pink Neck: supple Chest & Lungs: clear to auscultation, no adventitious breath sounds, no crackles , no wheeze Cardiovascular: Paced rhythm, normal S1 & S2 Pulses: dorsalis pedi (present and equal) Abdomen: soft, non-tender, non-distended, normoactive bowel tones Musculoskeletal: brace on her left leg Extremities: very mild edema B/L LE, no cyanosis, no clubbing Neurological: Grossly neurologically intact, normal speech . IVs and Medications Medications Reviewed: Medications were reviewed in detail Lab and Diagnostics Result Diagram: 12/11/1662412/11/16624 X-Rays, CTs and MRIs X-RAY CHEST ONE VIEW, PORTABLE IMPRESSION: No acute disease Dictated by: Kyrie Avila M.D. on 12/07/2016 at 10:42 Approved by: Kyrie Avila M.D. on 12/07/2016 at 10:47 . 12-lead ECG EKG: AV paced, heart rate 70. Cardiac Echo Impressions Echocardiogram Interpretation Summary: The left ventricle is normal in size. Left ventricular systolic function is moderately reduced. The ejection fraction is estimated to be 30-35%. There is akinesis along the distal 1/3 LV segments. There is hypokinesis along the middle 1/3 of LV segments. The basal or proximal 1/3 of LV segments are either normokinetic or hyperkinetic. Findings are suspicious for stress induced cardiomyopathy, but cannot completely exclude LAD infarction. Assessment of diastolic parameters indicates a relaxation abnormality of the left ventricle, consistent with normal filling pressures. The right ventricle is normal in size and function. There is a pacemaker lead in the right ventricle. Pulmonary artery pressures cannot be estimated because of the lack of a measurable TR jet velocity. The left atrium is moderately dilated. There is mild to moderate mitral regurgitation. There is no other significant valvular heart disease. Reading Physician:12:12 PM Reading Physician:PM . Assessment & Plan Camila Sharpe is a 71-year-old female with a past medical history significant for bipolar disorder and intermittent psychosis, diabetes mellitus type II, diet controlled, hypertension, hyperlipidemia, pacemaker placement, remote CVA with hemiparesis, CKD stage II, who presented to [facility] Emergency Department via EMS from [facility] due to chest pain. Hospital day #5. 1. Stress induced cardiomyopathy likely per cardiology (versus NSTEMI), chronicity unknown, present on admission. Resolving. - Cardiac risk factors include: Hypertension, hyperlipidemia, diabetes mellitus type II, age, smoker, and significant family history. - Patient presented with substernal chest pain with associated diaphoresis, nausea, vomiting, left shoulder and arm pain which resolved with sublingual nitroglycerin. - EKG shows AV pacing, therefore, unreliable. - 1 pause per telemetry last night of 3 seconds. Pacemaker interrogated and will be replaced on 12/13/16. NPO night of 12/12/16 in preparation. - Troponin initially elevated at 0.22. Last troponin ordered trending down. - CK-MB elevated. - Metoprolol tartrate 50 mg, now Q 6 hours per cardiology, also aspirin, Plavix , Lipitor, lisinopril, magnesium - Telemetry - Recent echocardiogram basal inferior wall severe hypokinesis, basal posterolateral wall severe hypokinesis, and proximal mid posteriolateral wall severe hypokinesis. Repeat limited pending report. - Fasting lipid panel was good - Cardiology is involved. We appreciate their time and care of the patient. - Consider spironolactone in a week or two 2. Macrocytic anemia, chronicity unknown, present on admission. Active. - No overt signs of bleeding. The patient denies hematochezia or melena. Stool occult blood negative. - H&H and monitor signs of bleeding daily. - Ordered B12 high, and folate not done by lab. Repeat folate pending Chronic problems: Hypertension, chronic. - Metoprolol tartrate 50 mg, now Q 6 hours per cardiology. Hyperlipidemia, chronic, controlled - Continue atorvastatin 40 mg daily at bedtime. Diabetes mellitus type II, diet controlled. - Last hemoglobin A1c 4.6% on 05/2016. Repeat hemoglobin A1c pending. - Continue low dose correctional scale insulin. - Continue carbohydrate consistent/heart healthy diet. Gastroesophageal reflux disease, chronic. - Continue famotidine 20 mg daily. Hypothyroidism, chronic. - Continue levothyroxine 100 g daily. Chronic hypoproliferative anemia. - History of chronic anemia secondary to CKD, requiring transfusions. - The patient reports receiving transfusions every 3-4 months. - Continue to monitor daily. Bipolar disorder type I, chronic - Continue olanzapine 5 mg daily and fluoxetine 20 mg daily.. Chronic pain with opiate habituation, chronic. - Continue hydrocodone 5-325 mg 1-2 tablets every 4 hours as needed for pain. Incontinence, chronic. - Continue oxybutynin ER 10 mg daily. Remote CVA with left hemiparesis. - Continue aspirin 81 mg daily and atorvastatin 40 mg daily at bedtime. Obstructive sleep apnea not on CPAP. Remote history of tobacco use. Bradycardia status post pacemaker. PRN antiemetics: Zofran and Maalox. PRN bowel regimen: Senna and MiraLAX. PRN analgesics: Tylenol. Patient is admitted under inpatient status with expected length of stay greater than 2 midnights due to severity of presenting symptoms, risk of adverse event, and complexity of treatment plan. . VTE Prophylaxis: Sub-Q Heparin (Unfractionated) Resuscitation Status: CPR: Attempt Resuscitation Attending Statement The patient was seen and examined together with Dr. Feldman on 12-11-16 and I agree with the history, exam and plan as outlined in the note above. Patient is on IV Morphine prn pain. Roberta Feldman DO Dec 11, 2016 21:04 Rizwan Beaver MD Dec 12, 2016 08:57
[2016-12-11] MEDS: Tolterodine ER 2 mg ER24 Capsule PO SCH (22:09)
[2016-12-12] VITALS (7 sets, daily range): BP systolic 111–139; BP diastolic 52–84; PULSE 75; RESP 16–18; O2SAT 94–99
[2016-12-12] MEDS: Heparin 5,000 Unit/mL Inj SUBQ SCH ×3 (00:30→18:07)
--- NOTE | 2016-12-12 05:45 | NUR ---
Chest Pain/Tele Pt c/o chest pain and an EKG was ordered. The EKG showed that the pt was A-V Paced at 75BPM. Pt received one 0.4 SL Nitro tab for the chest pain. Pt did not need another SL Nitro tab for chest pain. Pt did not get dizzy, light-headed, or get a headache as a result of taking the SL Nitro tab. sorter/assay tech notified that there were moments when the pt's pacemaker was not pacing correctly and once when the pacemaker didn't capture. The cardiac monitor printed out these instances of the pacemaker malfunctioning and the printed copies are now at the front of the pt's paper chart along with the EKG for chest pain.
[2016-12-12 08:01] LABS: BASOPHILS % (AUTO) 0.2 % (0-3); EOSINOPHILS % (AUTO) 5.8 % (0-5); MONOCYTES % (AUTO) 11.5 % (4-12); Mean Corpuscular Volume 103.6 fL (81-100); NEUTROPHILS % (AUTO) 59.1 % (40-74); Platelet Count 154 bil/L (150-400)
[2016-12-12] MEDS: PARoxetine 20 mg Tablet PO SCH (08:09)
[2016-12-12] MEDS: HYDROcodone-APAP 5-325 mg Tablet PO PRN ×2 (08:10→21:58)
[2016-12-12] MEDS: Fluticasone 250 mCg Inhaler INHALATION SCH ×2 (08:10→21:44)
--- NOTE | 2016-12-12 09:49 | PCM.PNMED ---
Subjective Date of Service Dec 12, 2016 Subjective Camila Sharpe is a 71-year-old female with a past medical history significant for bipolar disorder and intermittent psychosis, diabetes mellitus type II, diet controlled, hypertension, hyperlipidemia, pacemaker placement, remote CVA with hemiparesis, CKD stage II, who presented to [facility] Emergency Department via EMS from [facility] due to chest pain. Hospital day 6. Overnight the patient reports that she had chest pain which resolved with NG. She feels pretty good this morning. She is worried because she normally gets an "anemia shot" (B12?) and she is due for one tomorrow at [facility]. She is eating and ambulating in her room. Currently denies any pain, SOB, nausea. Sitting and visiting with a friend when I walked in. . Exam Vital Signs Vital Sign - Last Date Time Temp Pulse Resp B/P Pulse Ox O2 Delivery O2 Flow Rate FiO2 12/12/16 03:37 36.3 75 16 112/61 99 Nasal Cannula 3.00 Intake and Output 12/11/16 12/11/16 12/12/16 Cumulative From/Thru 15:00 23:00 07:00 12/07/16 14:34 - 12/12/16 05:27 Intake Total 1637 ml 200 ml 89203 ml Output Total 675 ml 1350 ml 8677 ml Balance 962 ml -1150 ml 2867 ml Intake Oral 1637 ml 200 ml 6944 ml IV Total 4600 ml Output Urine Total 675 ml 1350 ml 8677 ml # Voids 1 # Bowel Movements 0 3 Exam General: alert, oriented x3, cooperative, no acute distress Eyes: scleral anicteric Mouth: mucous membranes moist/pink Neck: supple Chest & Lungs: clear to auscultation, no adventitious breath sounds, no crackles , no wheeze Cardiovascular: Paced rhythm, normal S1 & S2 Pulses: dorsalis pedi (present and equal) Abdomen: soft, non-tender, non-distended, normoactive bowel tones Musculoskeletal: brace is currently not on her left leg Extremities: No edema B/L, no cyanosis, no clubbing Neurological: Grossly neurologically intact, normal speech IVs and Medications Medications Reviewed: Medications were reviewed in detail Lab and Diagnostics Test 12/12/16 07:50 White Blood Count 4.5th/mm3 (3.8-10.1) Red Blood Count 3.06mil/mm3 (3.90-5.20) Hemoglobin 10.4g/dL (12.0-15.6) Hematocrit 31.7% (35.0-46.0) Mean Corpuscular Volume 103.6fL (81-100) Mean Corpuscular Hemoglobin 34.0pg (27.0-35.0) Mean Corpuscular Hemoglobin Concent 32.8% (32.0-37.0) Red Cell Distribution Width 13.5% (12.3-15.4) Platelet Count 154bil/L (150-400) Neutrophils (%) (Auto) 59.1% (40-74) Lymphocytes (%) (Auto) 23.0% (14-46) Monocytes (%) (Auto) 11.5% (4-12) Eosinophils (%) (Auto) 5.8% (0-5) Basophils (%) (Auto) 0.2% (0-3) CMP Test 12/07/16 21:10 12/08/16 06:47 12/09/16 06:50 12/11/16 06:25 Total Creatine Kinase 82U/L Creatine Kinase MB 7.2ng/mL Creatine Kinase MB % 8.8% Triglycerides Level 83mg/dL Cholesterol Level 169mg/dL LDL Cholesterol, Calculated 93.400mg/dL VLDL Cholesterol 16.600mg/dL HDL Cholesterol 59mg/dL Cholesterol/HDL Ratio 2.86 Thyroid Stimulating Hormone (TSH) 0.703uIU/mL Free Thyroxine 1.43ng/dL Hemoglobin A1c 4.7% Vitamin B12 Level 848pg/mL Magnesium Level 2.3mg/dL Test 12/11/16 12:40 12/12/16 07:50 Folate 15.6ng/mL Sodium Level 140mEq/L Potassium Level 4.7mEq/L Chloride Level 104mEq/L Carbon Dioxide Level 20mmol/L Blood Urea Nitrogen 21mg/dL Creatinine 1.44mg/dL Estimat Glomerular Filtration Rate 52mL/min Glucose Level 93mg/dL Calcium Level 9.4mg/dL Total Bilirubin 0.5mg/dL Aspartate Amino Transf (AST/SGOT) 33U/L Alanine Aminotransferase (ALT/SGPT) 36U/L Alkaline Phosphatase 73U/L Troponin T 0.025ug/L Total Protein 6.9g/dL Albumin 3.8g/dL Result Diagram: 12/11/1625 12/11/1625 X-Rays, CTs and MRIs X-RAY CHEST ONE VIEW, PORTABLE IMPRESSION: No acute disease Dictated by: Kyrie Avila M.D. on 12/07/2016 at 10:42 Approved by: Kyrie Avila M.D. on 12/07/2016 at 10:47 . 12-lead ECG EKG: AV paced, heart rate 70. Cardiac Echo Impressions Echocardiogram Interpretation Summary: The left ventricle is normal in size. Left ventricular systolic function is moderately reduced. The ejection fraction is estimated to be 30-35%. There is akinesis along the distal 1/3 LV segments. There is hypokinesis along the middle 1/3 of LV segments. The basal or proximal 1/3 of LV segments are either normokinetic or hyperkinetic. Findings are suspicious for stress induced cardiomyopathy, but cannot completely exclude LAD infarction. Assessment of diastolic parameters indicates a relaxation abnormality of the left ventricle, consistent with normal filling pressures. The right ventricle is normal in size and function. There is a pacemaker lead in the right ventricle. Pulmonary artery pressures cannot be estimated because of the lack of a measurable TR jet velocity. The left atrium is moderately dilated. There is mild to moderate mitral regurgitation. There is no other significant valvular heart disease. Reading Physician:12:12 PM Reading Physician:PM . Limited Echocardiogram Report 11/10/16 Interpretation Summary The ejection fraction is estimated to be 30-35%. Left ventricular systolic function is moderately reduced. There is probably slight improvement but overall no significant improvement since prior study. Reading Physician:PM . Assessment & Plan Camila Sharpe is a 71-year-old female with a past medical history significant for diabetes, pacemaker placement, remote CVA with hemiparesis, CKD stage II, who presented to [facility] via EMS from [facility] due to chest pain. Hospital day #6. 1. Stress induced cardiomyopathy, chronicity unknown, present on admission. Resolving. - Cardiology is involved. We appreciate their time and care of the patient. - EKG shows AV pacing, therefore, unreliable. - Troponin initially elevated at 0.22. Last troponin ordered trending down at 0.025 on 12/12/16. - Metoprolol tartrate 50 mg, Q 6 hours per cardiology, also aspirin, Plavix, Lipitor, lisinopril, magnesium - Telemetry - Recent echocardiogram basal inferior wall severe hypokinesis, basal posterolateral wall severe hypokinesis, and proximal mid posteriolateral wall severe hypokinesis. Repeat limited echo 12/11/16 showed possibly slightly improved - Dr. Young is aware of the episode of chest pain that patient had overnight - Consider spironolactone in a week or two - Per cardiology, patient is to follow up with Dr. Lord within a week after discharging from the hospital. 2. Macrocytic anemia, chronicity unknown, present on admission. Stable. - No overt signs of bleeding. The patient denies hematochezia or melena. Stool occult blood negative. - H&H and monitor signs of bleeding daily. - Ordered B12 and folate which were normal 3. Pacemaker failure, chronicity unknown, stable - [email or web address] interrogated - NPO after midnight tonight for replacement on 12/13/16 Chronic problems: 4. Hypertension, chronic, controlled. - Metoprolol tartrate 50 mg, now Q 6 hours per cardiology. 5. Hyperlipidemia, chronic, controlled - Continue atorvastatin 40 mg daily at bedtime. 6. Diabetes mellitus type II, diet controlled. - Hemoglobin A1c 4.7% on 05/2016. - Continue low dose correctional scale insulin. - Continue carbohydrate consistent/heart healthy diet. 7. Gastroesophageal reflux disease, chronic. - Continue famotidine 20 mg daily. 8. Hypothyroidism, chronic, controlled. - Continue levothyroxine 100 g daily. - TSH normal 9. Chronic hypoproliferative anemia. - History of chronic anemia secondary to CKD, requiring transfusions. - The patient reports receiving transfusions every 3-4 months. - Continue to monitor daily. 10. Bipolar disorder type I, chronic - Continue olanzapine 5 mg daily and fluoxetine 20 mg daily.. 11. Chronic pain with opiate habituation. - Continue hydrocodone 5-325 mg 1-2 tablets every 4 hours as needed for pain. 12. Incontinence, chronic. - Continue oxybutynin ER 10 mg daily. 13. Remote CVA with left hemiparesis. - Continue aspirin 81 mg daily and atorvastatin 40 mg daily at bedtime. 14. Obstructive sleep apnea not on CPAP. 15. Remote history of tobacco use. 16. Bradycardia status post pacemaker. Resolved. - Patient's pacemaker turned up. Being replaced 12/13/16. 17. High risk medications - Patient has PRN morphine for chest pain ordered PRN antiemetics: Zofran and Maalox. PRN bowel regimen: Senna and MiraLAX. PRN analgesics: Tylenol. Patient is admitted under inpatient status with expected length of stay greater than 2 midnights due to severity of presenting symptoms, risk of adverse event, and complexity of treatment plan. Expect discharge back to [facility] on 12/14/16 . VTE Prophylaxis: Sub-Q Heparin (Unfractionated) Resuscitation Status: CPR: Attempt Resuscitation Attending Statement The patient was seen and examined together with Dr. Feldman on 12-12-16 and I agree with the history, exam and plan as outlined in the note above. Roberta Feldman DO Dec 12, 2016 06:46 Rizwan Beaver MD Dec 13, 2016 13:53
[2016-12-12] MEDS: Polyethylene Glycol (PEG) 17 Gm Powder PO PRN (14:09)
[2016-12-12] MEDS: Sodium Chloride LOK Flush 10 mL Syringe IVFLUSH SCH ×2 (19:01→19:10)
--- NOTE | 2016-12-12 19:30 | NUR ---
Pacer in Am Confirmed consent in chart. Provider notified and pre op orders in place. 2nd line placed by IV therapy. and NPO at midnight in place.
[2016-12-12] MEDS: Tolterodine ER 2 mg ER24 Capsule PO SCH (21:42)
[2016-12-13] VITALS (18 sets, daily range): BP systolic 98–158; BP diastolic 50–110; PULSE 60–82; RESP 14–20; O2SAT 95–100
[2016-12-13] MEDS ORDERED: Vancomycin Inj 1,000 MG in IV Premix 1 EACH IV ONE ×2 (06:00→21:40)
--- NOTE | 2016-12-13 06:29 | NUR ---
Pain c/o LLE pain x1 this shift. Prn Pioneer administered and effective with no further complaints.
[2016-12-13] MEDS: PARoxetine 20 mg Tablet PO SCH (07:24)
[2016-12-13] MEDS: Fluticasone 250 mCg Inhaler INHALATION SCH ×2 (07:25→19:40)
[2016-12-13] MEDS: Sodium Chloride LOK Flush 10 mL Syringe IVFLUSH SCH ×2 (07:33→17:05)
[2016-12-13] MEDS ORDERED: Vancomycin 1,000 mg Inj ONE ×2 (07:56→08:57)
[2016-12-13] MEDS ORDERED: 0.9% Sodium Chloride 1,000 ML ONE ×2 (07:56→08:56)
[2016-12-13] MEDS ORDERED: Water for Injection 50 ML IV ONE (07:56)
[2016-12-13] MEDS ORDERED: 0.9% Sodium Chloride 250 ML ONE ×2 (07:56→08:56)
[2016-12-13] MEDS ORDERED: Heparin 1,000 Unit/mL 10 mL Inj ONE ×2 (08:01→08:57)
--- NOTE | 2016-12-13 08:07 | NUR ---
Pre op [employer] conservation laborer this AM. IV x2 SL, RA, wiped body with chlorhexidine, tele notified. Left floor with personal phone via bed and stucco laborer personnel. Yesenia with chart.
[2016-12-13] MEDS ORDERED: fentaNYL-PF 50 mCg/mL 2 mL Inj ONE (08:14)
[2016-12-13] MEDS ORDERED: Bupivacaine-MPF 0.5% 30 mL Inj ONE ×2 (08:28→09:54)
[2016-12-13] MEDS: 0.9% Sodium Chloride 1,000 ML IV SCH ×3 (09:36→22:20)
--- NOTE | 2016-12-13 10:13 | PROG NOTE ---
[address] [address] PROGRESS NOTE PATIENT: RADHA LITTLE : 1945 MR#: [id number] ADMIT: 12/07/2016 JOB ID: [id number] DATE: 12/13/2016 DATE: 12/13/2016 IMPRESSION AND INTERIM HISTORY: The patient is a pleasant 71-year-old woman with a history of sick sinus syndrome, intermittent heart block and a dual chamber pacemaker in place. She was admitted with a constellation of symptoms that ultimately culminated in a diagnosis of likely stress-induced cardiomyopathy, but in the process of evaluating her, significant pauses were noted on telemetry and evaluation of her dual chamber left-sided pacemaker revealed noise on both the atrial and ventricular leads with periods of lack of output consistent with failure of the entire system. She is pacemaker dependent. She had had lightheaded episodes but never syncopal. She has had chest pain on and off but currently is chest pain free. Her device was implanted in 2007 and is a [employer] dual chamber device. IMPRESSION AND RECOMMENDATION: The patient is a pleasant 71-year-old woman with stress-induced cardiomyopathy with an ejection fraction 35%, dual-chamber pacemaker in place for sick sinus syndrome and intermittent heart block that now has shown evidence of failure in both the RA and RV leads. I recommended dual-chamber pacemaker implantation and explant of her current generator and capping of her leads. 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 Discussed the risks and benefits with her in detail. Ultimately, she wishes to proceed. Implantation of a new dual-chamber pacemaker system with explant of the old generator and capping of old leads. Thank you very much for allowing me to participate in the care of the patient. Please call with any questions. I spent 1 hour with this patient coordinating care and reviewing her chart. Greater than 50% of the time was spent in counseling.
--- NOTE | 2016-12-13 10:50 | NUR ---
Social Work: Readiness for d/c Data: Pt is on day 6 of hospitalization. EMR reviewed. Pt discussed in rounds, states pt is getting a new pacemaker today and may be ready for d/c tomorrow. INSURANCE LOSS CONTROL SURVEYOR notified [facility] who states they will come to hospital on 12/14 at 10am for another bedside assessment. INSURANCE LOSS CONTROL SURVEYOR will continue to follow. Assessment: Pt from assisted living. Plan: Pt will d/c back to [facility] pending bedside assessment on 12/14/16 at 10am. INSURANCE LOSS CONTROL SURVEYOR will continue to follow. ALBERT Pemberton
[2016-12-13] MEDS: HYDROcodone-APAP 5-325 mg Tablet PO PRN ×3 (11:12→19:39)
--- NOTE | 2016-12-13 11:57 | OP ---
[address] [address] OPERATIVE REPORT PATIENT: RADHA LITTLE : 1945 MR#: [id number] ADMIT: 12/07/2016 JOB ID: [id number] DATE OF SURGERY: 12/13/2016 PREOPERATIVE DIAGNOSIS(ES): 1. Pacemaker lead failure, both atrial and ventricular. 2. Sick sinus syndrome. 3. Likely stress-induced cardiomyopathy. POSTOPERATIVE DIAGNOSIS(ES): 1. Pacemaker lead failure, both atrial and ventricular. 2. Sick sinus syndrome. 3. Likely stress-induced cardiomyopathy. PROCEDURES PERFORMED: 1. Dual-chamber right-sided pacemaker implantation. 2. Bilateral subclavian venograms. 3. Left-sided pacemaker generator removal. 4. Fluoroscopy. SURGEON: Jonn Nash MD, electrophysiology attending. AMMONIA STILL OPERATOR: Trenton Washington. IMPLANTED DEVICES: 1. [employer] pulse generator, model PM 2240, serial #[id number]. 2. Right atrial lead, [employer], 2088 TC, 46 cm, serial #[id number]. 3. RV lead, [employer], 2088 TC, 52 cm, serial #[id number]. EXPLANTED DEVICE: [employer] pulse generator, model S 603, serial #[id number]. CHRONIC LEADS DYSFUNCTIONAL: 1. Right atrial lead, [employer] 4470, serial #[id number]. 2. RV lead, [employer] 4471, serial #[id number]. Both of these are capped and unusable. ANESTHESIA: Bolus dosing of Versed and fentanyl were utilized for an appropriate level of sedation. HISTORY: The patient is a 71-year-old woman with sick sinus syndrome and intermittent heart block who has a dual-chamber pacemaker for which both atrial and ventricular leads are fractured. After discussion of the risks and benefits of new device implantation and removal of her old device, she opted to proceed. PROCEDURAL DESCRIPTION: Following informed signed consent, the patient is taken to the EP laboratory in a fasting nonsedated state where she was prepped in the usual sterile fashion. Bilateral venograms were performed showing that her left subclavian system was completely occluded and collateralized. We, therefore, prepared for right-sided pacemaker implantation. The right infraclavicular region was infiltrated with 40 cc of a 50/50 mixture the bupivacaine and lidocaine. Once adequate anesthesia had been achieved, a 3 cm incision was performed 2 cm medial to the right deltopectoral groove. Dissection was carried down to the pectoralis fascia and a pocket was fashioned using a combination of electrocautery and blunt dissection. Once adequate sedation had been achieved and under venographic guidance, the right axillary vein was cannulated with over the first rib twice to deploy two 0.035, 3 mm J guidewires. Over the first of these, a 6-[place] tear-away sheath was advanced. Once the guidewire was removed, an active fixation lead was advanced to the RV outflow tract and ultimately to the RV apex. The lead was affixed in position using associated fixation screw. It was connected to the external analyzer. There was evidence of appropriately sensed R waves, impedance, capture threshold. It was checked to 10 V and there was no evidence of diaphragmatic stimulation. Attention was now paid to the right atrial lead. Over the other previously deployed J guidewire, another 6-[place] tear-away sheath was advanced. Once the guidewire was removed, the active fixation lead was advanced to the right atrial appendage. It was affixed in position using its associated active fixation screw. It was connected to the external analyzer and demonstrated appropriately sensed P waves, impedance, capture threshold. It was checked to 10 V and there was no evidence of diaphragmatic stimulation. Once the position and redundancy of the leads had been confirmed in multiple fluoroscopic views, the leads were attached to the prepectoral fascia using the associated anchoring sleeves and two Ethibond sutures. The pocket was then copiously irrigated with antibiotic solution. The leads were connected to the generator. The generator was placed in the pocket and it was affixed to the floor of the pocket using 1-0 Ti-Cron suture. The incision was then closed with running layers of absorbable suture. The wound was dressed with skin adhesive and a small dressing. At the end of the procedure, the needle, sponge and instrument counts were all correct. The left side was then prepped and redraped. A 50/50 mixture of bupivacaine and lidocaine were infiltrated over the left infraclavicular surgical scar. A 3 cm incision was performed overlying the previous surgical scar. Dissection was carried down to the capsule. The leads and generator were freed loose of adhesions. The leads were disconnected from the generator and capped secure to the floor of the capsule and the generator was externalized. The pocket was copiously irrigated with antibiotic solution. The incision was then closed with running layers of absorbable suture. The wound was dressed with skin adhesive and a small dressing. At the end of procedure, the needle, sponge, instrument counts were all correct. COMPLICATIONS: None. ESTIMATED BLOOD LOSS: Negligible. DEVICE MEASURED DATA: 1. Right atrial lead: 3.2 mV paced P waves, 540 ohms, 0.75 V at 0.4 msec. 2. RV lead greater than 12% paced R waves, 540 ohms, 0.5 V at 0.4 msec. FINAL PROGRAM PARAMETERS: DDD R 60-130 beats per minute. IMPRESSION: Successful dual-chamber pacemaker implantation with an explant of dysfunctional left-sided system, capping of old dysfunctional leads. PLAN: 1. Stat portable chest x-ray. 2. PA and lateral chest x-ray in the morning. 3. IV vancomycin through tomorrow. 4. Doxycycline 100 mg p.o. daily x1 week starting . 5. Wound check one week. ATTENDING STATEMENT: Jonn Nash MD, electrophysiology attending, was present for and supervised/performed all aspects of this procedure.
--- NOTE | 2016-12-13 13:44 | NUR ---
Pacer Return to room 3016. Dressing c/d/i. Pt comfortable at this time. Ice packs in place.
--- NOTE | 2016-12-13 13:44 | DRSVH ---
PROCEDURE: X-RAY CHEST ONE VIEW, PORTABLE ([id number]) INDICATIONS: For new leads placed TECHNIQUE: One view of the chest was acquired. COMPARISON: [facility], CR, XR CHEST 1VW (PORTABLE), 12/07/2016, 10:13. FINDINGS: Surgical changes and devices: New right cardiac pacer present in expected position and abandoned lead s involving the left chest are present. Lungs and pleura: No pleural effusions or pneumothorax. Lungs are clear. Mediastinum: Mediastinal contours appear normal. Heart size is normal. Bones and chest wall: No suspicious bony lesions. Overlying soft tissues appear unremarkable. IMPRESSION: No immediate complications status post cardiac pacemaker placement. Dictated by: Tio GALAN Interpreted: Megan Kendrick MD on 12/13/2016 at 13:16 Transcribed by: ROSALINA on 12/13/2016 at 13:17 Approved by: Megan Kendrick M.D. on 12/13/2016 at 17:04
[2016-12-13] MEDS: Mupirocin 2% 22 Gm Ointment TOPICAL SCH ×2 (14:11→19:41)
--- NOTE | 2016-12-13 14:37 | NUR ---
YVONNE Patient to [facility] from laborer/key man at 1050. New pacemaker right chest. Old pacemaker removed from left chest. Both sites without bleeding or hematoma. Ice packs to areas X 2 hours. Chest X ray and ECG 12 lead complete in [facility]. patient C/O 8/10 pain at right chest incision site. medicated with [place] X 1 with minimal relief. Repeated X 1 with significant relief. Patient ate lunch. Void pr bed stovall. Transferred back to room 3016 by bed at 1320. Report to receiving RN.
[2016-12-13 15:31] LABS: Mean Corpuscular Hemoglobin 33.5 pg (27.0-35.0); Mean Corpuscular Volume 104.4 fL (81-100)
--- NOTE | 2016-12-13 15:38 | PCM.PNMED ---
Subjective Date of Service Dec 13, 2016 Subjective Camila Sharpe is a 71-year-old female with a past medical history significant for bipolar disorder and intermittent psychosis, diabetes mellitus type II, diet controlled, hypertension, hyperlipidemia, pacemaker placement, remote CVA with hemiparesis, CKD stage II, who presented to [facility] Emergency Department via EMS from [facility] due to chest pain. Hospital day 7. Patient had her pacemaker replaced this morning and states that she will need to get used to the new rate. She is feeling sore and has an ice pack on her right upper chest. She has been eating. Denies any SOB, nausea, dizziness. Exam Vital Signs Vital Sign - Last Date Time Temp Pulse Resp B/P Pulse Ox O2 Delivery O2 Flow Rate FiO2 12/13/16 13:48 36.6 60 18 124/78 99 Room Air 12/13/16 12:30 Intake and Output 12/12/16 12/12/16 12/13/16 Cumulative From/Thru 15:00 23:00 07:00 12/07/16 14:34 - 12/13/16 05:00 Intake Total 1230 ml 0 ml 53976 ml Output Total 2375 ml 22015 ml Balance -1145 ml 0 ml 1722 ml Intake Oral 1230 ml 8174 ml IV Total 0 ml 4600 ml Output Urine Total 2375 ml 95599 ml # Voids 1 # Bowel Movements 0 3 Exam General: alert, oriented x3, cooperative, lying in bed with ice pack on right upper chest in no distress Eyes: scleral anicteric Mouth: mucous membranes moist/pink Neck: supple Chest & Lungs: clear to auscultation, no adventitious breath sounds, no crackles , no wheeze Cardiovascular: Paced rhythm, normal S1 & S2 Pulses: dorsalis pedi (present and equal) Abdomen: soft, non-tender, non-distended, normoactive bowel tones Musculoskeletal: brace on her left leg Extremities: No edema B/L, no cyanosis, no clubbing Neurological: Grossly neurologically intact, normal speech, I witnessed her getting out of bed and she was careful, but coordinated IVs and Medications Medications Reviewed: Medications were reviewed in detail Lab and Diagnostics Result Diagram: 12/12/16 0750 12/12/16 0750 X-Rays, CTs and MRIs X-RAY CHEST ONE VIEW, PORTABLE IMPRESSION: No acute disease Dictated by: Kyrie Avila M.D. on 12/07/2016 at 10:42 Approved by: Kyrie Avila M.D. on 12/07/2016 at 10:47 . 12/13/16 X-RAY CHEST ONE VIEW, PORTABLE IMPRESSION: No immediate complications status post cardiac pacemaker placement. Dictated by: Tio Rawls RRA Interpreted: Megan Kendrick MD on 12/13/2016 at 13: 16 Transcribed by: ROSALINA on 12/13/2016 at 13:17 12-lead ECG EKG: AV paced, heart rate 70. Cardiac Echo Impressions Echocardiogram Interpretation Summary: The left ventricle is normal in size. Left ventricular systolic function is moderately reduced. The ejection fraction is estimated to be 30-35%. There is akinesis along the distal 1/3 LV segments. There is hypokinesis along the middle 1/3 of LV segments. The basal or proximal 1/3 of LV segments are either normokinetic or hyperkinetic. Findings are suspicious for stress induced cardiomyopathy, but cannot completely exclude LAD infarction. Assessment of diastolic parameters indicates a relaxation abnormality of the left ventricle, consistent with normal filling pressures. The right ventricle is normal in size and function. There is a pacemaker lead in the right ventricle. Pulmonary artery pressures cannot be estimated because of the lack of a measurable TR jet velocity. The left atrium is moderately dilated. There is mild to moderate mitral regurgitation. There is no other significant valvular heart disease. Reading Physician:12:12 PM Reading Physician:PM . Limited Echocardiogram Report 11/10/16 Interpretation Summary The ejection fraction is estimated to be 30-35%. Left ventricular systolic function is moderately reduced. There is probably slight improvement but overall no significant improvement since prior study. Reading Physician:PM . Assessment & Plan Camila Sharpe is a 71-year-old female with a past medical history significant for diabetes, pacemaker placement, remote CVA with hemiparesis, CKD stage II, who presented to [facility] ED via EMS from [facility] due to chest pain. Hospital day #7. 1. Stress induced cardiomyopathy, chronicity unknown, present on admission. Resolving. - Cardiology is involved. We appreciate their time and care of the patient. - EKG shows AV pacing, therefore, unreliable. - Troponin initially elevated at 0.22. Last troponin ordered trending down at 0.025 on 12/12/16. - Metoprolol tartrate 50 mg, Q 6 hours per cardiology, also aspirin, Plavix, Lipitor, lisinopril, magnesium - Telemetry - Recent echocardiogram basal inferior wall severe hypokinesis, basal posterolateral wall severe hypokinesis, and proximal mid posteriolateral wall severe hypokinesis. Repeat limited echo 12/11/16 showed possibly slightly improved - Consider spironolactone in a week or two - Per cardiology, patient is to follow up with Dr. Lord within a week after discharging from the hospital. 2. Macrocytic anemia, chronicity unknown, present on admission. Stable. - No overt signs of bleeding. The patient denies hematochezia or melena. Stool occult blood negative. - H&H and monitor signs of bleeding daily. - Ordered B12 and folate which were normal 3. Pacemaker failure, chronicity unknown, Resolved - Replacement of pacemaker today, 12/13. Patient tolerated the procedure well Chronic problems: 4. Hypertension, chronic, controlled. - Metoprolol tartrate 50 mg, now Q 6 hours per cardiology. 5. Hyperlipidemia, chronic, controlled - Continue atorvastatin 40 mg daily at bedtime. 6. Diabetes mellitus type II, diet controlled. - Hemoglobin A1c 4.7% on 05/2016. - Low dose correctional scale insulin not used, so discontinued - Continue carbohydrate consistent/heart healthy diet. 7. Gastroesophageal reflux disease, chronic, controlled - Continue famotidine 20 mg daily. 8. Hypothyroidism, chronic, controlled. - Continue levothyroxine 100 g daily. - TSH normal 9. Chronic hypoproliferative anemia, controlled - History of chronic anemia secondary to CKD, requiring transfusions. - The patient reports receiving transfusions every 3-4 months. - Continue to monitor daily. 10. Bipolar disorder type I, chronic, controlled - Continue olanzapine 5 mg daily and fluoxetine 20 mg daily.. 11. Chronic pain with opiate habituation, controlled - Continue hydrocodone 5-325 mg 1-2 tablets every 4 hours as needed for pain. 12. Incontinence, chronic, ongoing - Continue oxybutynin ER 10 mg daily. 13. Remote CVA with left hemiparesis. - Continue aspirin 81 mg daily and atorvastatin 40 mg daily at bedtime. 14. Obstructive sleep apnea not on CPAP. 15. Remote history of tobacco use. 16. Bradycardia status post pacemaker. Resolved. - Pacemaker replaced today 12/13/16. 17. High risk medications - Patient has PRN morphine for chest pain ordered. Not used since 12/08 PRN antiemetics: Zofran and Maalox. PRN bowel regimen: Senna and MiraLAX. PRN analgesics: Tylenol. Patient is admitted under inpatient status with expected length of stay greater than 2 midnights due to severity of presenting symptoms, risk of adverse event, and complexity of treatment plan. Expect discharge back to [facility] on 12/14/16 . VTE Prophylaxis: Sub-Q Heparin (Unfractionated) Resuscitation Status: CPR: Attempt Resuscitation Attending Statement The patient was seen and examined together with Dr. Feldman on 12/13/2016 and I agree with the history, exam and plan as outlined in the note above. Roberta Feldman DO Dec 13, 2016 15:38 Barrington Jeong MD Dec 14, 2016 13:15
[2016-12-13 15:50] LABS: INR 0.93 ratio
--- NOTE | 2016-12-13 20:18 | NUR ---
Pain Pt had a new pacemaker put in on the right side chest. dressing is clean and intact. no sign of bleeding or drainage from incision. pt is being reminded to use the right arm minimally and to not raise. pt is having pain with incisions, norco for pain. will continue to do hourly rounds. bed low, call light within reach.
[2016-12-13] MEDS ORDERED: HYDROcodone-APAP 5-325 mg Tablet PO PRN (20:30)
[2016-12-13] MEDS: Tolterodine ER 2 mg ER24 Capsule PO SCH (21:19)
[2016-12-13] MEDS: Artificial Tears 15 mL Ophthalmic Solution BOTH_EYES PRN (21:32)
[2016-12-13] MEDS: Ondansetron 2 mg/mL 2 mL Inj IVPUSH PRN (23:13)
[2016-12-14] VITALS (9 sets, daily range): BP systolic 97–131; BP diastolic 57–70; PULSE 58–64; RESP 16–22; O2SAT 94–98
[2016-12-14] MEDS: Sodium Chloride LOK Flush 10 mL Syringe IVFLUSH SCH ×4 (00:30→23:59)
[2016-12-14] MEDS: HYDROcodone-APAP 5-325 mg Tablet PO PRN ×3 (02:37→20:03)
--- NOTE | 2016-12-14 06:51 | NUR ---
Off the Floor to Xray at 06:50, in wheelchair, two techs with pt.
--- NOTE | 2016-12-14 06:53 | NUR ---
Returned from Xray pt arrived back to room 3016 from Xray at 0706.
[2016-12-14] MEDS: Fluticasone 250 mCg Inhaler INHALATION SCH ×2 (07:53→20:15)
[2016-12-14] MEDS: PARoxetine 20 mg Tablet PO SCH (07:54)
[2016-12-14] MEDS: Mupirocin 2% 22 Gm Ointment TOPICAL SCH ×2 (07:55→20:15)
--- NOTE | 2016-12-14 11:30 | DRSVH ---
PROCEDURE: X-RAY CHEST, TWO VIEWS ([id number]) INDICATIONS: For new lead placement TECHNIQUE: 2 views of the chest were acquired. COMPARISON: [facility], CR, XR CHEST 1VW (PORTABLE), 12/13/2016, 11:00. FINDINGS: Surgical changes and devices: Stable right cardiac pacer in expected position and abandoned leads inv olving the left chest are present. Lungs and pleura: No pleural effusions or pneumothorax. Lungs are clear. Mediastinum: Mediastinal contours appear normal. Heart size is normal. Bones and chest wall: No suspicious bony lesions. Overlying soft tissues appear unremarkable. IMPRESSION: Stable chest post pacer placement. Dictated by: Tio GALAN Interpreted: Megan Kendrick MD on 12/14/2016 at 11:29 Transcribed by: ROSALINA on 12/14/2016 at 11:30 Approved by: Megan Kendrick M.D. on 12/18/2016 at 17:23
[2016-12-14] MEDS: 0.9% Sodium Chloride 1,000 ML IV SCH ×3 (11:42→23:59)
--- NOTE | 2016-12-14 14:24 | NUR ---
Constipation/ pain pt c/o constipation, stating 3-4 days. denies passing gas. PRN senna and yenny given per md order/discussion. awaiting results. pt c/o 03/30 moderate pain discomfort of pacer incision sites. dsgs cdi. PRN vicodin given per md order. will continue to monitor.
[2016-12-14 15:20] LABS: APPEARANCE,URINE HAZY (CLEAR,HAZY); COLOR,URINE STRAW (YELLOW); OCCULT BLOOD,URINE MODERATE (NEGATIVE); PH,URINE 6.5 (5.0-8.0); UROBILINOGEN,URINE NORMAL (NORMAL)
--- NOTE | 2016-12-14 15:54 | NUR ---
Social Work: Readiness for d/c Data: Pt is on day 7 of hospitalization. EMR reviewed, pt discussed in rounds. states pt will likely d/c tomorrow. [facility] did a bedside assessment today, Olivia states they can take pt back when she is ready. WEBBING SUPERVISOR will continue to follow. Assessment: Pt who is independent at baseline. Plan: Pt will d/c back to [facility], likely tomorrow. WEBBING SUPERVISOR will continue to follow. ALBERT Pemberton
--- NOTE | 2016-12-14 16:23 | CONS ---
[address] [address] CONSULTATION REPORT PATIENT: RADHA LITTLE : 1945 MR#: [id number] ADMIT: 12/07/2016 JOB ID: [id number] DATE OF SERVICE: REQUESTING PHYSICIAN: Roberta Feldman DO, REASON FOR CONSULTATION: Management of abnormal kidney function. CHIEF COMPLAINT: Chest pain. PRESENT ILLNESS: This is a very pleasant, 71-year-old, female, with significant past medical history of type 2 diabetes, hypertension, dyslipidemia, chronic kidney disease stage 3, CVA with left-sided hemiparesis, obstructive sleep apnea, bradycardia status post pacemaker placement, who presented to the hospital due to chest pain. The patient was admitted on December 07, 2016. The patient reported having chest pain on the day of the admission. The pain was localized on the substernal area, radiating to the left shoulder. She had two episodes of nausea and vomiting. She was brought in by the EMS. The initial vitals in the ER were temperature 36.8, pulse of 70, respiratory of 16, blood pressure of 117/67, O2 sat 94% on room air. Her initial troponin was 0.022 and peaked at 0.769. EKG showed AV pacing. The patient was evaluated by a senior grants officer. She was started on heparin drip, continued on aspirin, statin. 2D echo showed ejection fraction of 30% to 35%, that is akinesis along the distal one-third LV segment. Findings are suspicious for stress-induced cardiomyopathy, but cannot completely exclude LAD infarction. A repeat echocardiogram on December 11 showed ejection fraction 30% to 35%. LV systolic function is moderately reduced. Cardiac angiogram has not been performed. The patient is currently on the medical management for her coronary artery disease. Moreover, the patient was also evaluated by quality control representative. She was found to have failure in both RA and RV leads. The patient underwent implantation of the new dual chamber pacemaker yesterday by Dr. Nash. During my visit today, the patient has no complaints. She has no chest pain. No shortness of breath. She is feeling better overall. Regarding her kidney disease, she came in with a serum creatinine of 1.49 and the best serum creatinine during this hospitalization was 1.35; however, today axel to 1.72. Of note, the patient received IV vancomycin for the prophylaxis prior to the pacemaker placement. Lisinopril was started on December 10, 2016. There were no obvious hypotensive episodes. The patient has not received any IV contrast. There was no evidence of administering NSAIDs. The patient does have history of bladder incontinence in which she has been on oxybutynin. She claimed that it has not improved the symptoms. So far, she has no history of dysuria or hematuria. She has no fever or chills. She had the kidney ultrasound done in May 2016. Showed bilateral renal atrophy, renal cortical thinning and increased renal cortical echogenicity consistent with medical renal disease. Her baseline serum creatinine was around 1.2. Her baseline estimated GFR using CKD-EPI equation is 46 mL/minute. PAST MEDICAL HISTORY: 1. Type 2 diabetes, without significant diabetic retinopathy. 2. Hypertension. 3. Dyslipidemia. 4. Obesity. 5. Sleep apnea. 6. CVA. 7. Sick sinus syndrome, status post pacemaker placement x2. 8. Chronic anemia, suspected MDS. 9. Reflux. 10. Hypothyroid. 11. Chronic kidney disease stage 3. 12. Bladder incontinence. 13. Bipolar. 14. Depression. 15. History of UTI. 16. C. difficile colitis. 17. MRSA bacteremia. 18. Decubital ulcer. PAST SURGICAL HISTORY: 1. Bilateral cataract extraction. 2. Hysterectomy and BSO. 3. Cholecystectomy. 4. Tonsillectomy. 5. Laparoscopy for small bowel adhesion x6. 6. Unspecified small and large colon surgery. 7. Left hip replacement x5. 8. Recent history of left tibial fracture, status post surgery. FAMILY HISTORY: Positive for diabetes in the family. Positive for lung cancer in her mother. Positive for OH in her brother. SOCIAL HISTORY: Patient is a remote smoker. She used to smoke two packs per day for 12-15 years. She lives in the assisted living. ALLERGIES: 1. STRAWBERRIES. 2. TAPE. 3. CALCIUM. 4. CIPROFLOXACIN. 5. CODEINE. 6. GABAPENTIN. 7. LATEX. 8. PHENYTOIN. 9. MEPERIDINE. 10. DEFERASIROX. REVIEW OF SYSTEMS: A 140point review of system was performed. Vitals: Temperature 36.4, pulse 61, respiratory 20, blood pressure 103/67, O2 sat 98% on room air. General appearance: Awake, alert, oriented x3. In no acute distress. HEENT: Mild pallor. No jaundice. No JVD. No lymphadenopathy. No thyroid enlargement. PERRLA, atraumatic. Moist mucous membranes. Heart: Regular rhythm. Normal S1, S2. Soft systolic murmur noted. Chest: Pacemaker in place on the left upper chest. Dry, clean, and intact. No hematoma. Abdomen: Soft, obese, active bowel sounds. Nontender, nondistended. No hepatosplenomegaly. Extremities: No edema, cyanosis, or clubbing of fingers. LABORATORY: Sodium 135, potassium 4.7, chloride 99, bicarb 23, BUN 30, creatinine 1.72. Calcium 8.8. Hemoglobin 9.1. WBC 3.8, INR 0.93. Chest x-ray showed no pulmonary congestion. ASSESSMENT: 1. Acute kidney injury superimposed on chronic kidney disease stage 3. Her serum baseline creatinine is around 1.2, estimated GFR is around 46 mL/minute, using CKD EPI equation. Her current serum creatinine is 1.72. Of note, she received vancomycin prior to the pacemaker placement and lisinopril was started a couple days ago. The patient appears to be euvolemic per my assessment. At this point, I would like to continue normal saline 60 cc/hour only for 1 L of normal saline. Continue lisinopril for now. If her kidney function has deteriorated, we will hold the medications, temporary. I will check a UA to rule out any infection. Will check her postvoid residual given significant history of incontinence. 2. Sick sinus syndrome with RA and RV lead dysfunction, status post dual-chamber pacemaker placement. 3. Stress-induced cardiomyopathy. 4. Microcytic anemia. Per patient, she had received Aranesp given weekly [facility]. 5. Type 2 diabetes. Last hemoglobin A1c was 4.7%. She is not on any hypoglycemic agents. 6. History of hypertension. 7. CVA. PLAN: Per renal standpoint, we will continue supportive treatment. I agree with primary team to give her gentle IV fluid hydration. I would do 60 cc/hour. Give her only 1 L of normal saline. Repeat kidney function in the morning. Check postvoid residual and UA. Avoid nephrotoxins. Adjust medication per GFR. Avoid NSAIDs. Thank you for the consultation. We will monitor along with you.
[2016-12-14] MEDS: Ondansetron 2 mg/mL 2 mL Inj IVPUSH PRN (20:02)
[2016-12-14] MEDS: Tolterodine ER 2 mg ER24 Capsule PO SCH (20:14)
--- NOTE | 2016-12-14 21:04 | PCM.PNMED ---
Subjective Date of Service Dec 14, 2016 Subjective Camila Sharpe is a 71-year-old female with a past medical history significant for diabetes, pacemaker placement, remote CVA with hemiparesis, CKD stage II, who presented to [facility] ED via EMS from [facility] facility due to chest pain. Hospital day #8. This morning she was having her pacemaker adjusted when I walked into the room. Her upper chest feels sore from the pacemaker replacement. Otherwise, she is well. She is eating and ambulating. Denies nausea, vomiting, headache and lower extremity edema. Exam Vital Signs Vital Sign - Last Date Time Temp Pulse Resp B/P Pulse Ox O2 Delivery O2 Flow Rate FiO2 12/14/16 20:21 36.3 60 16 131/62 98 Room Air 12/13/16 12:30 Intake and Output 12/13/16 12/13/16 12/14/16 Cumulative From/Thru 15:00 23:00 07:00 12/07/16 14:34 - 12/14/16 06:37 Intake Total 757 ml 900 ml 192 ml 36907 ml Output Total 2750 ml 450 ml 76805 ml Balance -1993 ml 450 ml 192 ml 371 ml Intake Oral 757 ml 900 ml 9831 ml IV Total 192 ml 4792 ml Output Urine Total 2750 ml 450 ml 19584 ml # Voids 1 2 # Bowel Movements 0 0 3 Exam General: alert, oriented x3, cooperative, lying in bed Eyes: scleral anicteric Mouth: mucous membranes moist/pink Neck: supple Chest & Lungs: clear to auscultation, no adventitious breath sounds, no crackles , no wheeze Cardiovascular: Paced rhythm, normal S1 & S2 Pulses: dorsalis pedi (present and equal) Abdomen: soft, non-tender, non-distended, normoactive bowel tones Musculoskeletal: brace on her left leg, tenderness to palpation upper chest, the surgical wounds are healing well Extremities: No edema B/L, no cyanosis, no clubbing Neurological: Grossly neurologically intact, normal speech IVs and Medications Medications Reviewed: Medications were reviewed in detail Lab and Diagnostics Result Diagram: 12/14/1660412/14/16 06 X-Rays, CTs and MRIs X-RAY CHEST ONE VIEW, PORTABLE IMPRESSION: No acute disease Dictated by: Kyrie Avila M.D. on 12/07/2016 at 10:42 Approved by: Kyrie Avila M.D. on 12/07/2016 at 10:47 . 12/13/16 X-RAY CHEST ONE VIEW, PORTABLE IMPRESSION: No immediate complications status post cardiac pacemaker placement. Dictated by: Tio Rawls [facility] Interpreted: Megan Kendrick MD on 12/13/2016 at 13: 16 Transcribed by: ROSALINA on 12/13/2016 at 13:17 12-lead ECG EKG: AV paced, heart rate 70. Cardiac Echo Impressions Echocardiogram Interpretation Summary: The left ventricle is normal in size. Left ventricular systolic function is moderately reduced. The ejection fraction is estimated to be 30-35%. There is akinesis along the distal 1/3 LV segments. There is hypokinesis along the middle 1/3 of LV segments. The basal or proximal 1/3 of LV segments are either normokinetic or hyperkinetic. Findings are suspicious for stress induced cardiomyopathy, but cannot completely exclude LAD infarction. Assessment of diastolic parameters indicates a relaxation abnormality of the left ventricle, consistent with normal filling pressures. The right ventricle is normal in size and function. There is a pacemaker lead in the right ventricle. Pulmonary artery pressures cannot be estimated because of the lack of a measurable TR jet velocity. The left atrium is moderately dilated. There is mild to moderate mitral regurgitation. There is no other significant valvular heart disease. Reading Physician:12:12 PM Reading Physician:PM . Limited Echocardiogram Report 11/10/16 Interpretation Summary The ejection fraction is estimated to be 30-35%. Left ventricular systolic function is moderately reduced. There is probably slight improvement but overall no significant improvement since prior study. Reading Physician:PM . Assessment & Plan Camila Sharpe is a 71-year-old female with a past medical history significant for diabetes, pacemaker placement, remote CVA with hemiparesis, CKD stage II, who presented to [facility] ED via EMS from [facility] facility due to chest pain. Hospital day #8. 1. Acute kidney injury on chronic kidney disease stage 3. - Nephrology, Dr. Jenkins, has seen patient and made recommendations: continue normal saline 60 cc/hour only for 1 L of normal saline. Continue lisinopril for now. If her kidney function has deteriorated, we will hold the medications, temporary. I will check a UA to rule out any infection. Will check her postvoid residual given significant history of incontinence. - Appreciate nephrology 2. Stress induced cardiomyopathy, chronicity unknown, present on admission. Stable. - Cardiology is involved. We appreciate their time and care of the patient. - EKG shows AV pacing, therefore, unreliable. - Troponin initially elevated at 0.22. Last troponin ordered trending down at 0.025 on 12/12/16. - Metoprolol tartrate 50 mg, Q 6 hours per cardiology, also aspirin, Plavix, Lipitor, lisinopril, magnesium - Telemetry - Recent echocardiogram basal inferior wall severe hypokinesis, basal posterolateral wall severe hypokinesis, and proximal mid posteriolateral wall severe hypokinesis. Repeat limited echo 12/11/16 showed possibly slightly improved - Consider spironolactone in a week or two - Per cardiology, patient is to follow up with Dr. Lord within a week after discharging from the hospital. 3. Macrocytic anemia, chronicity unknown, present on admission. Stable. - No overt signs of bleeding. The patient denies hematochezia or melena. Stool occult blood negative. - H&H and monitor signs of bleeding daily. - B12 and folate normal 4. Sick sinus syndrome, present on admission, Resolved - Replacement of pacemaker on 12/14/16. Patient tolerated the procedure well - Cardiology is following Chronic problems: 5. Hypertension, chronic, controlled. - Metoprolol tartrate 50 mg, now Q 6 hours per cardiology. 6. Hyperlipidemia, chronic, controlled - Continue atorvastatin 40 mg daily at bedtime. 7. Diabetes mellitus type II, diet controlled. - Hemoglobin A1c 4.7% on 05/2016. - Low dose correctional scale insulin not used, so discontinued - Continue carbohydrate consistent/heart healthy diet. 8. Gastroesophageal reflux disease, chronic, controlled - Continue famotidine 20 mg daily. 9. Hypothyroidism, chronic, controlled. - Continue levothyroxine 100 g daily. - TSH normal 10. Chronic hypoproliferative anemia, controlled - History of chronic anemia secondary to CKD, requiring transfusions. - The patient reports receiving transfusions every 3-4 months. - Continue to monitor daily. 11. Bipolar disorder type I, chronic, controlled - Continue olanzapine 5 mg daily and fluoxetine 20 mg daily.. 12. Chronic pain with opiate habituation, controlled - Continue hydrocodone 5-325 mg 1-2 tablets every 4 hours as needed for pain. 13. Incontinence, chronic, ongoing - Continue oxybutynin ER 10 mg daily. 14. Remote CVA with left hemiparesis. - Continue aspirin 81 mg daily and atorvastatin 40 mg daily at bedtime. 15. Obstructive sleep apnea not on CPAP. 16. Remote history of tobacco use. 17. High risk medications - Patient has PRN morphine for chest pain ordered. Not used since 12/08 PRN antiemetics: Zofran and Maalox. PRN bowel regimen: Senna and MiraLAX. PRN analgesics: Tylenol. Patient is admitted under inpatient status with expected length of stay greater than 2 midnights due to severity of presenting symptoms, risk of adverse event, and complexity of treatment plan. Expect discharge back to [facility] on 12/15/16 . VTE Prophylaxis: Sub-Q Heparin (Unfractionated) Resuscitation Status: CPR: Attempt Resuscitation Attending Statement The patient was seen and examined together with Dr. Feldman on 12/14/2016 and I agree with the history, exam and plan as outlined in the note above. Roberta Feldman DO Dec 14, 2016 21:04 Barrington Jeong MD Dec 15, 2016 13:14
[2016-12-15] VITALS (8 sets, daily range): BP systolic 94–134; BP diastolic 52–74; PULSE 58–60; RESP 16; O2SAT 95–98
--- NOTE | 2016-12-15 05:25 | NUR ---
Pain Management/Voiding Patient reported pain up to 7/10 early in shift; norco given per orders with good results. Patient noted to be asleep on subsequent evaluations. Patient awake to void several times overnight. Post void residuals of 275 ml, 75ml. Patient reports feeling "empty" after voiding. Continue to monitor.
[2016-12-15 08:36] LABS: Mean Corpuscular Hemoglobin 33.2 pg (27.0-35.0); Mean Corpuscular Volume 99.6 fL (81-100)
[2016-12-15] MEDS: PARoxetine 20 mg Tablet PO SCH (10:04)
[2016-12-15] MEDS: Fluticasone 250 mCg Inhaler INHALATION SCH ×2 (10:06→20:33)
[2016-12-15] MEDS: Sodium Chloride LOK Flush 10 mL Syringe IVFLUSH SCH ×2 (10:06→16:44)
[2016-12-15] MEDS: Mupirocin 2% 22 Gm Ointment TOPICAL SCH ×2 (10:07→20:34)
--- NOTE | 2016-12-15 13:25 | PCM.PNMED ---
Subjective Date of Service Dec 15, 2016 Subjective c/o being constipated, no N/V/CP/F/C. (+) soreness on left and right upper chest. Exam Vital Signs Vital Sign - Last Date Time Temp Pulse Resp B/P Pulse Ox O2 Delivery O2 Flow Rate FiO2 12/15/16 10:00 Supplement Oxygen 12/15/16 09:53 36.9 58 16 94/63 95 12/13/16 12:30 Intake and Output 12/14/16 12/14/16 12/15/16 Cumulative From/Thru 15:00 23:00 07:00 12/07/16 14:34 - 12/15/16 06:56 Intake Total 1100 ml 977 ml 1763 ml 46594 ml Output Total 2100 ml 300 ml 1800 ml 02533 ml Balance -1000 ml 677 ml -37 ml 11 ml Intake Oral 1100 ml 977 ml 537 ml 43302 ml IV Total 1226 ml 6018 ml Output Urine Total 2100 ml 300 ml 1800 ml 75731 ml # Voids 3 1 6 # Bowel Movements 0 0 0 3 Exam General appearance: Awake, alert, oriented x3. In no acute distress. HEENT: Mild pallor. No jaundice. No JVD. No lymphadenopathy. No thyroid enlargement. PERRLA, atraumatic. Moist mucous membranes. Heart: Regular rhythm. Normal S1, S2. Soft systolic murmur noted. Chest: Pacemaker in place on the right upper chest. Dry, clean, and intact. No hematoma. Abdomen: Soft, obese, active bowel sounds. Nontender, nondistended. No hepatosplenomegaly. Extremities: No edema, cyanosis, or clubbing of fingers. Lab and Diagnostics Result Diagram: 12/15/1682112/15/16 08 X-Rays, CTs and MRIs X-RAY CHEST ONE VIEW, PORTABLE IMPRESSION: No acute disease Dictated by: Kyrie Avila M.D. on 12/07/2016 at 10:42 Approved by: Kyrie Avila M.D. on 12/07/2016 at 10:47 . 12/13/16 X-RAY CHEST ONE VIEW, PORTABLE IMPRESSION: No immediate complications status post cardiac pacemaker placement. Dictated by: Tio GALAN Interpreted: Megan Kendrick MD on 12/13/2016 at 13: 16 Transcribed by: ROSALINA on 12/13/2016 at 13:17 12-lead ECG EKG: AV paced, heart rate 70. Cardiac Echo Impressions Echocardiogram Interpretation Summary: The left ventricle is normal in size. Left ventricular systolic function is moderately reduced. The ejection fraction is estimated to be 30-35%. There is akinesis along the distal 1/3 LV segments. There is hypokinesis along the middle 1/3 of LV segments. The basal or proximal 1/3 of LV segments are either normokinetic or hyperkinetic. Findings are suspicious for stress induced cardiomyopathy, but cannot completely exclude LAD infarction. Assessment of diastolic parameters indicates a relaxation abnormality of the left ventricle, consistent with normal filling pressures. The right ventricle is normal in size and function. There is a pacemaker lead in the right ventricle. Pulmonary artery pressures cannot be estimated because of the lack of a measurable TR jet velocity. The left atrium is moderately dilated. There is mild to moderate mitral regurgitation. There is no other significant valvular heart disease. Reading Physician:12:12 PM Reading Physician:PM . Limited Echocardiogram Report 11/10/16 Interpretation Summary The ejection fraction is estimated to be 30-35%. Left ventricular systolic function is moderately reduced. There is probably slight improvement but overall no significant improvement since prior study. Reading Physician:PM . Assessment & Plan ASSESSMENT: 1. Acute kidney injury superimposed on chronic kidney disease stage 3. Her serum baseline creatinine is around 1.2, estimated GFR is around 46 mL/minute, using CKD EPI equation. - The etiology of CARLEY is likely due to ATN from vancomycin. - serum creatinine is trended down. 2. Sick sinus syndrome with RA and RV lead dysfunction, status post dual- chamber pacemaker placement. 3. Stress-induced cardiomyopathy. 4. Macrocytic anemia. 5. Type 2 diabetes. Last hemoglobin A1c was 4.7%. 6. History of hypertension. 7. CVA. PLAN: - d/c IVF. - continue supportive treatment. - continue lisinopril. - avoid nephrotoxins. - follow with renal in 2-3 weeks. - will sign off, please do not hesitate to call with any question. Thank you so much for the consultation. VTE Prophylaxis: Sub-Q Heparin (Unfractionated) Resuscitation Status: CPR: Attempt Resuscitation Luann Johnson MD Dec 15, 2016 13:25
[2016-12-15] MEDS: HYDROcodone-APAP 5-325 mg Tablet PO PRN ×2 (14:13→20:43)
--- NOTE | 2016-12-15 15:18 | PCM.PNMED ---
Subjective Date of Service Dec 15, 2016 Subjective Camila Sharpe is a 71-year-old female with a past medical history significant for diabetes, pacemaker placement, remote CVA with hemiparesis, CKD stage II, who presented to [facility] via EMS from [facility] facility due to chest pain. Hospital day #9 This morning she was feeling pretty well except for the soreness in her upper chest from the pacemaker replacement. She has been eating and ambulating in her room. Denies coughing, new calf tenderness, chest pain (other than soreness), nausea, vomiting. She is still feeling constipated although she did have a little BM. She has been taking the MiraLax and the Senna. Exam Vital Signs Vital Sign - Last Date Time Temp Pulse Resp B/P Pulse Ox O2 Delivery O2 Flow Rate FiO2 12/15/16 13:27 36.4 59 16 103/68 98 Room Air 12/13/16 12:30 Intake and Output 12/14/16 12/14/16 12/15/16 Cumulative From/Thru 15:00 23:00 07:00 12/07/16 14:34 - 12/15/16 06:56 Intake Total 1100 ml 977 ml 1763 ml 94887 ml Output Total 2100 ml 300 ml 1800 ml 56966 ml Balance -1000 ml 677 ml -37 ml 11 ml Intake Oral 1100 ml 977 ml 537 ml 65400 ml IV Total 1226 ml 6018 ml Output Urine Total 2100 ml 300 ml 1800 ml 34452 ml # Voids 3 1 6 # Bowel Movements 0 0 0 3 Exam General: alert, oriented x3, cooperative, lying in bed in no distress Eyes: scleral anicteric Mouth: mucous membranes moist/pink Neck: supple but she tends to lean her head to the left Chest & Lungs: clear to auscultation, no adventitious breath sounds, no crackles , no wheeze Cardiovascular: Paced rhythm, normal S1 & S2 Pulses: dorsalis pedi (present and equal) Abdomen: soft, non-tender, non-distended, normoactive bowel tones Musculoskeletal: brace on her left leg, tenderness to palpation upper chest, the surgical wounds are intact without exudate, edema Extremities: No edema B/L, no cyanosis, no clubbing Neurological: Grossly neurologically intact, normal speech IVs and Medications Medications Reviewed: Medications were reviewed in detail Lab and Diagnostics Result Diagram: 2/25/17 0822 12/15/16 0822 X-Rays, CTs and MRIs X-RAY CHEST ONE VIEW, PORTABLE IMPRESSION: No acute disease Dictated by: Kyrie Avila M.D. on 12/07/2016 at 10:42 Approved by: Kyrie Avila M.D. on 12/07/2016 at 10:47 . 12/13/16 X-RAY CHEST ONE VIEW, PORTABLE IMPRESSION: No immediate complications status post cardiac pacemaker placement. Dictated by: Tio Rawls RRA Interpreted: Megan Kendrick MD on 12/13/2016 at 13: 16 Transcribed by: ROSALINA on 12/13/2016 at 13:17 12-lead ECG EKG: AV paced, heart rate 70. Cardiac Echo Impressions Echocardiogram Interpretation Summary: The left ventricle is normal in size. Left ventricular systolic function is moderately reduced. The ejection fraction is estimated to be 30-35%. There is akinesis along the distal 1/3 LV segments. There is hypokinesis along the middle 1/3 of LV segments. The basal or proximal 1/3 of LV segments are either normokinetic or hyperkinetic. Findings are suspicious for stress induced cardiomyopathy, but cannot completely exclude LAD infarction. Assessment of diastolic parameters indicates a relaxation abnormality of the left ventricle, consistent with normal filling pressures. The right ventricle is normal in size and function. There is a pacemaker lead in the right ventricle. Pulmonary artery pressures cannot be estimated because of the lack of a measurable TR jet velocity. The left atrium is moderately dilated. There is mild to moderate mitral regurgitation. There is no other significant valvular heart disease. Reading Physician:12:12 PM Reading Physician:PM . Limited Echocardiogram Report 11/10/16 Interpretation Summary The ejection fraction is estimated to be 30-35%. Left ventricular systolic function is moderately reduced. There is probably slight improvement but overall no significant improvement since prior study. Reading Physician:PM . Assessment & Plan Camila Sharpe is a 71-year-old female with a past medical history significant for diabetes, pacemaker placement, remote CVA with hemiparesis, CKD stage II, who presented to [facility] ED via EMS from [facility] facility due to chest pain. Hospital day #9. 1. Acute kidney injury on chronic kidney disease stage 3, acute resolving. - Nephrology, Dr. Jenkins, has seen patient and has written a report. Basically: Acute kidney injury likely from the use of Vancomycin Restart lisinopril She has discontinued the IV Follow up with nephrology in 2-3 weeks. - Appreciate nephrology 2. Stress induced cardiomyopathy, chronicity unknown, present on admission. Stable. - Cardiology is involved. We appreciate their time and care of the patient. - EKG shows AV pacing, therefore, unreliable. - Troponin initially elevated at 0.22. Last troponin ordered trending down at 0.025 on 12/12/16. - Metoprolol tartrate 50 mg, Q 6 hours per cardiology, also aspirin, Plavix, Lipitor, lisinopril, magnesium - Telemetry - Recent echocardiogram basal inferior wall severe hypokinesis, basal posterolateral wall severe hypokinesis, and proximal mid posteriolateral wall severe hypokinesis. Repeat limited echo 12/11/16 showed possibly slightly improved - Consider spironolactone in a week or two - Per cardiology, patient is to follow up with Dr. Lord within a week after discharging from the hospital. 3. Macrocytic anemia, chronicity unknown, present on admission. Stable. - No overt signs of bleeding. The patient denies hematochezia or melena. Stool occult blood negative. - H&H and monitor signs of bleeding daily. - B12 and folate normal 4. Sick sinus syndrome, present on admission, Resolved - Replacement of pacemaker on 12/14/16. Patient tolerated the procedure well - Cardiology has signed off and will follow up outpatient - Doxycycline 100mg daily for 1 week post surgery per cardiology Chronic problems: 5. Hypertension, chronic, controlled. - Currently low-normal blood pressure - Metoprolol tartrate 50 mg, now Q 6 hours per cardiology. - Lisinopril was discontinued in the setting of kidney disease. BP controlled without it. Restart if needed. 6. Hyperlipidemia, chronic, controlled - Continue atorvastatin 40 mg daily at bedtime. 7. Diabetes mellitus type II, diet controlled. - Hemoglobin A1c 4.7% on 05/2016. - Low dose correctional scale insulin not used, so discontinued - Continue carbohydrate consistent/heart healthy diet. 8. Gastroesophageal reflux disease, chronic, controlled - Continue famotidine 20 mg daily. 9. Hypothyroidism, chronic, controlled. - Continue levothyroxine 100 g daily. - TSH normal 10. Chronic hypoproliferative anemia, controlled - History of chronic anemia secondary to CKD, requiring transfusions. - The patient reports receiving transfusions every 3-4 months. - Continue to monitor daily. 11. Bipolar disorder type I, chronic, controlled - Continue olanzapine 5 mg daily and fluoxetine 20 mg daily.. 12. Chronic pain with opiate habituation, controlled - Continue hydrocodone 5-325 mg 1-2 tablets every 4 hours as needed for pain. 13. Incontinence, chronic, ongoing - Continue oxybutynin ER 10 mg daily. 14. Remote CVA with left hemiparesis. - Continue aspirin 81 mg daily and atorvastatin 40 mg daily at bedtime. 15. Obstructive sleep apnea not on CPAP. 16. Remote history of tobacco use. 17. High risk medications - Patient has PRN morphine for chest pain ordered. Not used since 12/08 PRN antiemetics: Zofran and Maalox. PRN bowel regimen: Senna and MiraLAX. PRN analgesics: Tylenol. Patient is admitted under inpatient status with expected length of stay greater than 2 midnights due to severity of presenting symptoms, risk of adverse event, and complexity of treatment plan. Expect discharge back to [facility] on 12/16/16 VTE Prophylaxis: Sub-Q Heparin (Unfractionated) Resuscitation Status: CPR: Attempt Resuscitation Attending Statement The patient was seen and examined together with Dr. Feldman on 12/15/2016 and I agree with the history, exam and plan as outlined in the note above. Roberta Feldman DO Dec 15, 2016 15:18 Barrington Jeong MD Dec 16, 2016 12:55
--- NOTE | 2016-12-15 16:48 | NUR ---
Pacer problems information technology teacher notified primary nurse of pacer not sensing properly. power shovel operator cardiology notified. power shovel operator cardiology went to telemetry to look at the rhythms and told primary RN that Pacer function is acting normal. Notified by director of industrial relations that patient is cleared from cardiology.
[2016-12-15] MEDS: Tolterodine ER 2 mg ER24 Capsule PO SCH (20:33)
[2016-12-16] MEDS: Sodium Chloride LOK Flush 10 mL Syringe IVFLUSH SCH ×2 (00:11→08:52)
[2016-12-16 02:05] VITALS: BP 110/71; PULSE 62; RESP 16; O2SAT 98
--- NOTE | 2016-12-16 03:41 | NUR ---
Pain Patient complains of 4/10 chest pain and points to her incisions. Medication administered and pain was reduced. Continuing to assess for comfort needs and assessing incisions for any signs of infection or irritation.
[2016-12-16 05:50] VITALS: BP 101/65; PULSE 60; RESP 16; O2SAT 94
[2016-12-16 05:58] LABS: BASOPHILS % (AUTO) 0.2 % (0-3); EOSINOPHILS % (AUTO) 0.9 % (0-5); MONOCYTES % (AUTO) 11.1 % (4-12); Mean Corpuscular Hemoglobin 33.6 pg (27.0-35.0); Mean Corpuscular Volume 104.8 fL (81-100); NEUTROPHILS % (AUTO) 73.7 % (40-74); Platelet Count 131 bil/L (150-400)
[2016-12-16 07:01] VITALS: PULSE 58
[2016-12-16] MEDS ORDERED: ASPI81TA3 PO (07:43)
[2016-12-16] MEDS ORDERED: DOXY100T2 PO (07:43)
[2016-12-16] MEDS ORDERED: LISI-571 PO (07:43)
[2016-12-16] MEDS ORDERED: METO-272 PO (07:46)
[2016-12-16] MEDS ORDERED: MeTOProlol XL 50 mg ER24 Tablet PO SCH (08:30)
[2016-12-16] MEDS: PARoxetine 20 mg Tablet PO SCH (08:52)
[2016-12-16] MEDS: Fluticasone 250 mCg Inhaler INHALATION SCH (08:52)
[2016-12-16] MEDS: Mupirocin 2% 22 Gm Ointment TOPICAL SCH (08:54)
--- NOTE | 2016-12-16 09:00 | NUR ---
LISET signed. ALBERT Donnelly
[2016-12-16 09:10] VITALS: PULSE 60
[2016-12-16 09:53] VITALS: BP 113/72; PULSE 60; RESP 16; O2SAT 94
[2016-12-16] MEDS: HYDROcodone-APAP 5-325 mg Tablet PO PRN (10:23)
--- NOTE | 2016-12-16 10:48 | PCM.DIMED ---
Marj Marquez DO 12/16/16 1048: Discharge Instructions Date of Service Dec 16, 2016 Dates of Hospitalization Dec 07, 2016 at 12:55 Discharge Diagnosis Discharge Diagnosis Acute kidney injury on chronic kidney disease stage 3. Resolved. Stress induced cardiomyopathy, chronicity unknown, present on admission. Stable. Macrocytic anemia, chronicity unknown, present on admission. Stable. Sick sinus syndrome with RA and RV lead dysfunction, status post dual-chamber pacemaker placement. Resolved. Hypertension, chronic. Stable. Hyperlipidemia, chronic. Stable. Diabetes mellitus type II, diet controlled. Stable. Gastroesophageal reflux disease, chronic. Stable. Hypothyroidism, chronic. Stable. Bipolar disorder type I, chronic. Stable. Chronic pain with opiate habituation. Stable. Incontinence, chronic. Stable. Remote CVA with left hemiparesis. Stable. Obstructive sleep apnea not on CPAP. Stable. Remote history of tobacco use. . Medication Instructions New medications: Aspirin 81 mg daily. Doxycycline 100 mg daily 4 days. Lisinopril 2.5 mg daily. Metoprolol succinate 50 mg twice a day. Bactroban 1/4 inch applied into each nostril twice daily for 3 more applications total. Continue medications: Acidophilus 1 tablet daily. Dulcolax 5 mg every morning as needed for constipation. Vitamin D3 1000 units daily. Vitamin B12 1000 g daily. Artificial tears 1 drop in both eyes twice a day. Colace 250 mg every morning as needed for constipation. Famotidine 20 mg daily. Fluticasone 1 puff inhaled twice a day. Glucosamine 500 mg twice a day. Guaifenesin/codeine 10 mL every 4 hours as needed for cough. Hydrocodone 5-325 mg 1-2 tablets twice a day as needed for pain. Levothyroxine 100 g daily. Melatonin 3 mg daily at bedtime. Multivitamin daily. Olanzapine 5 mg every afternoon. Ondansetron 4 mg daily as needed for nausea. Oxybutynin chloride ER 10 mg every afternoon. Paroxetine 20 mg every afternoon. MiraLAX 17 g every morning as needed for constipation. Senna 17.2 mg every morning as needed for constipation. Terbinafine 250 mg twice a day. Tizanidine 4 mg 3 times a day. Trazodone 25 mg daily at bedtime. Discontinued medications: Metoprolol tartrate 12.5 mg every morning. Diet Low fat, Low Sodium, Heart Healthy Activity Limited until seen by PCP Call your provider Shortness of breath, Chest pain, Weakness (unilateral) Patient Instructions Discharging home to [facility] assisted living facility. . Follow-up plan Please follow up with your yard switch operator, Dr. Lord, in the next week regarding your hospitalization for your stress cardiomyopathy and recent pacemaker placement. Please follow up with nephrology, Dr. Jenkins , in the next 2 -3 weeks. . Follow-up Provider: Mitesh Lord MD Follow-up with PCP in: 1 week Provider: Luann Johnson MD Follow-up in: 3 weeks Barrington Jeong MD 12/16/16 1255: Marj Marquez DO Dec 16, 2016 10:48 Barrington Jeong MD Dec 16, 2016 12:55
[2016-12-16] MEDS ORDERED: MUPI22OI2 TOPICAL (11:01)
--- NOTE | 2016-12-16 11:27 | NUR ---
Social Work-discharge: data:EMR reviewed Pt is on day 9 of hospitalization for chest pain per H&P. Pt is medically stable to discharge today. JORGE spoke with Roxana at [facility] who is agreeable for pt to return today. Olivia came on Saturday and completed bedside assessment and states pt is able to return back to them. SW faxed discharge information. [facility] does not have transport available today. Pt states she uses [facility]. [facility] called [facility] SW updated [facility] on transport time. JORGE updated pt and RN. All updated and agreeable to plan. Assessment:Pt who resides at [facility]. Plan:Pt to discharge back to [facility] today via [facility] transport at 1330. JORGE confirms that [facility] is able to accept pt back today and faxed information information. All updated and agreeable to plan. ALBERT Donnelly
--- NOTE | 2016-12-16 13:46 | NUR ---
discharge Patient discharge to [facility] with all belongings at . Explained to patient new medications (aspirin, metoprolol, muperocin, doxycycline), when next medications are due and discharge instructions. Patient verbalized understanding. Dc'd IV intact. Dc'd telemetry. Vitals stable. Patient left floor via wheelchair accompanied by AIR CARGO SPECIALIST to be picked up in the lobby by [facility] with no signs of distress.
--- NOTE | 2016-12-16 19:49 | PCM.DC.MED ---
Discharge Summary Date of Service Dec 16, 2016 Dates of Hospitalization Date of Hospital Admission Dec 07, 2016 at 12:55 Date of Discharge: Dec 16, 2016 Providers: Admitting Physician: Rizwan Beaver MD Primary Care Physician: Nael Jin MD Attending Physician: Rizwan Beaver MD Diagnosis at Time of Discharge Diagnosis at Time of Discharge Acute kidney injury on chronic kidney disease stage 3. Resolved. Stress induced cardiomyopathy, chronicity unknown, present on admission. Stable. Macrocytic anemia, chronicity unknown, present on admission. Stable. Sick sinus syndrome with RA and RV lead dysfunction, status post dual-chamber pacemaker placement. Resolved. Hypertension, chronic. Stable. Hyperlipidemia, chronic. Stable. Diabetes mellitus type II, diet controlled. Stable. Gastroesophageal reflux disease, chronic. Stable. Hypothyroidism, chronic. Stable. Bipolar disorder type I, chronic. Stable. Chronic pain with opiate habituation. Stable. Incontinence, chronic. Stable. Remote CVA with left hemiparesis. Stable. Obstructive sleep apnea not on CPAP. Stable. Remote history of tobacco use. . Consultations Cardiology, Dr. Lord. Nephrology, Dr. Jenkins. . Procedures XRay, CTs & MRIs X-RAY CHEST ONE VIEW, PORTABLE IMPRESSION: No acute disease Dictated by: Kyire Avila M.D. on 12/07/2016 at 10:42 Approved by: Kyrie Avila M.D. on 12/07/2016 at 10:47 X-RAY CHEST ONE VIEW, PORTABLE IMPRESSION: No immediate complications status post cardiac pacemaker placement. Dictated by: Tio Rawls RRA Interpreted: Megan Kendrick MD on 12/13/2016 at 13: 16 Transcribed by: ROSALINA on 12/13/2016 at 13:17 . ECG 12 Lead EKG: AV paced, heart rate 70. Cardiac Echo Impression Echocardiogram Interpretation Summary: The left ventricle is normal in size. Left ventricular systolic function is moderately reduced. The ejection fraction is estimated to be 30-35%. There is akinesis along the distal 1/3 LV segments. There is hypokinesis along the middle 1/3 of LV segments. The basal or proximal 1/3 of LV segments are either normokinetic or hyperkinetic. Findings are suspicious for stress induced cardiomyopathy, but cannot completely exclude LAD infarction. Assessment of diastolic parameters indicates a relaxation abnormality of the left ventricle, consistent with normal filling pressures. The right ventricle is normal in size and function. There is a pacemaker lead in the right ventricle. Pulmonary artery pressures cannot be estimated because of the lack of a measurable TR jet velocity. The left atrium is moderately dilated. There is mild to moderate mitral regurgitation. There is no other significant valvular heart disease. Reading Physician:12:12 PM Reading Physician:PM . Limited Echocardiogram Report 11/10/16 Interpretation Summary The ejection fraction is estimated to be 30-35%. Left ventricular systolic function is moderately reduced. There is probably slight improvement but overall no significant improvement since prior study. Reading Physician:PM . Brief History History of present illness on 12/07/2016: Camila Sharpe is a 71-year-old female with a past medical history significant for diabetes mellitus type II, diet controlled, hypertension, hyperlipidemia, symptomatic bradycardia status post pacemaker placement, remote CVA with left-sided hemiparesis, CKD stage II, who presented to [facility] Emergency Department via EMS from [facility] facility due to chest pain that began at 0900 this morning. The pain was located substernally and radiated into her left shoulder and arm. She described the pain as aching in quality. She had associated diaphoresis, nausea, and vomiting 2. Her pain was initially an + 8 out of 10 but after nitroglycerin x4 was administered by paramedics her pain improved to a +2 out of 10. She reports that her pain had resolved completely by the time she arrived at the emergency department. She has never had this before. She denies headache, lightheadedness or dizziness, vision changes, dysarthria, shortness of breath, or palpitations. Vital signs in the ER: Temperature 36.8. Pulse 70. Respiratory rate 16. Blood pressure 117/67. Pulse ox 94% on room air. She was given nitroglycerin SL 4 en route. She also received metoprolol 25 mg PO 1, Zofran 4 mg IV 1 and was started on a heparin gtt per cardiac protocol in the ED. PCP is Dr. Morales. . Hospital Course Camila Sharpe is a 71-year-old female with a past medical history significant for bipolar disorder and intermittent psychosis, diabetes mellitus type II, diet controlled, hypertension, hyperlipidemia, pacemaker placement, remote CVA with hemiparesis, CKD stage II, who presented to [facility] Emergency Department via EMS from [facility] due to chest pain. Hospital day #10. 1. Acute kidney injury on chronic kidney disease stage 3. Resolved. - Acute kidney injury likely from the use of Vancomycin. - Restart lisinopril - Received IV fluid which was discontinued before discharge. - Nephrology would like the patient to follow up in 2-3 weeks after discharge.. - Nephrology, Dr. Jenkins, was consulted 2. Stress induced cardiomyopathy, chronicity unknown, present on admission. Stable. - EKG shows AV pacing, therefore, unreliable. - Troponin initially elevated at 0.22. Last troponin ordered trending down at 0.025 on 12/12/16. - Continued metoprolol tartrate 50 mg every 6 hours, aspirin, Plavix, Lipitor, and lisinopril, per cardiology. - Continue to monitor closely on telemetry throughout hospitalization. - Recent echocardiogram revealed basal inferior wall severe hypokinesis, basal posterolateral wall severe hypokinesis, and proximal mid posteriolateral wall severe hypokinesis. Repeat limited echo 12/11/16 showed possible slight improvement. - Consider spironolactone in a week or two after discharge. - Cardiology followed throughout hospitalization. We appreciate their time in care of the patient. Per cardiology, patient is to follow up with Dr. Lord within a week after discharging from the hospital. 3. Macrocytic anemia, chronicity unknown, present on admission. Stable. - Patient reports she receives injection monthly which may possibly be B12 injection. - No overt signs of bleeding. The patient denies hematochezia or melena. Stool occult blood negative. - Continue to monitor hemoglobin and hematocrit, as well as, signs of bleeding throughout hospitalization. - B12 and folate normal. 4. Sick sinus syndrome with RA and RV lead dysfunction, status post dual- chamber pacemaker placement. Resolved. - Replacement of pacemaker on 12/14/16. Patient tolerated the procedure well and was without complications. - Cardiology has signed off and will follow up outpatient. - Doxycycline 100mg daily for 1 week post surgery per cardiology. Chronic problems: 5. Hypertension, chronic. Stable. - Metoprolol tartrate 50 mg every 6 hours and at time of discharge switched to metoprolol succinate 50 mg twice a day, per cardiology - Continued lisinopril 2.5 mg daily at time of discharge. - Continued to monitor throughout hospitalization. 6. Hyperlipidemia, chronic. Stable. - Continued atorvastatin 40 mg daily at bedtime. 7. Diabetes mellitus type II, diet controlled. Stable. - Hemoglobin A1c 4.7% on 05/2016. - Low dose correctional scale insulin not used therefore discontinued. - Continued carbohydrate consistent/heart healthy diet. 8. Gastroesophageal reflux disease, chronic. Stable. - Continued famotidine 20 mg daily. 9. Hypothyroidism, chronic. Stable. - Continued levothyroxine 100 g daily. - TSH normal. 10. Chronic hypoproliferative anemia. Stable. - History of chronic anemia secondary to CKD, requiring transfusions. - The patient reports receiving transfusions every 3-4 months. - Continued to monitor daily. 11. Bipolar disorder type I, chronic. Stable. - Continued olanzapine 5 mg daily and fluoxetine 20 mg daily.. 12. Chronic pain with opiate habituation. Stable. - Continued hydrocodone 5-325 mg 1-2 tablets every 4 hours as needed for pain. 13. Incontinence, chronic. Stable. - Continued oxybutynin ER 10 mg daily. 14. Remote CVA with left hemiparesis. - Continued aspirin 81 mg daily and atorvastatin 40 mg daily at bedtime. 15. Obstructive sleep apnea not on CPAP. 16. Remote history of tobacco use disorder. . Exam Vital Signs (Last) Date Time Temp Pulse Resp B/P Pulse Ox O2 Delivery O2 Flow Rate FiO2 12/16/16 09:53 36.9 60 16 113/72 94 Room Air 12/13/16 12:30 Exam General: Elderly obese female in no acute distress, well-developed, well- nourished, appropriately interactive. HEENT: Normocephalic, atraumatic. External ears without defect. Pupils equal, round, and reactive to light. Anicteric sclerae, moist conjunctivae, and no lid lag. Oropharynx free of erythema and cobble stoning with moist mucosa. Neck: Supple with full range of motion. No jugular venous distension. No bruits. No lymphadenopathy or thyromegaly. Cardiovascular: Regular rate and rhythm without rubs or gallops appreciated. Systolic 2/5 murmur appreciated. No abdominal bruit. Capillary refill <3 seconds. Tenderness to palpation upper chest, the surgical wounds are intact with dressing in place c/d/i/. Pulmonary: Clear to auscultation bilaterally with no crackles, wheezes, or rhonchi. Normal respiratory effort with no use of accessory muscles. Abdomen: Obese, soft, no tenderness, nondistended. No hepatosplenomegaly or masses appreciated. : Pierson absent. Extremities: No clubbing, cyanosis, or edema. Left leg brace with leg length discrepancy R>L. Skin: Normal temperature, turgor, and texture; no rash, ulcers, or subcutaneous nodules appreciated. Neurological: Cranial nerves grossly intact. Normal muscle strength, tone, and bulk. Reflexes, coordination, and sensory function within normal limits. No known gait impairment. Psychiatric: Normal mood and affect. Alert and oriented to person, place, and time. . Test 12/07/16 21:10 12/08/16 06:47 12/09/16 06:50 12/10/16 09:15 Total Creatine Kinase 82U/L (21-215) Creatine Kinase MB 7.2ng/mL (0.0-5.3) Creatine Kinase MB % 8.8% (0.0-5.0) Triglycerides Level 83mg/dL (0-149) Cholesterol Level 169mg/dL (100-199) LDL Cholesterol, Calculated 93.400mg/dL (0-99) VLDL Cholesterol 16.600mg/dL HDL Cholesterol 59mg/dL (>39) Cholesterol/HDL Ratio 2.86 (0.0-4.4) Thyroid Stimulating Hormone (TSH) 0.703uIU/mL (0.450-4.500) Free Thyroxine 1.43ng/dL (0.82-1.77) Hemoglobin A1c 4.7% (4.8-5.6) Vitamin B12 Level 848pg/mL (211-946) Activated Partial Thromboplast Time 25.7sec (22.8-33.0) Test 12/11/16 06:25 12/11/16 12:40 12/12/16 07:50 12/13/16 15:20 Magnesium Level 2.3mg/dL (1.6-2.6) Folate 15.6ng/mL (>3.0) Troponin T 0.025ug/L (0.0-0.011) Prothrombin Time 9.9sec (8.1-12.5) Prothromb Time International Ratio 0.93ratio Test 12/13/16 17:05 12/14/16 15:04 12/16/16 05:30 Hold Purple Top Tube Received (Received) Hold Blue Top Tube Received (Received) Hold Red Top Tube Received (Received) Hold [place] Top Tube Received (Received) Urine Color Straw (YELLOW) Urine Appearance Hazy (CLEAR,HAZY) Urine pH 6.5 (5.0-8.0) Urine Specific [place] 1.005 (1.003-1.035) Urine Protein Negativemg/dL (NEG,TRACE) Urine Glucose (UA) Negativemg/dL (NEGATIVE) Urine Ketones Negativemg/dL (NEGATIVE) Urine Occult Blood Moderate (NEGATIVE) Urine Nitrite Negative (NEGATIVE) Urine Bilirubin Negative (NEGATIVE) Urine Urobilinogen Normalmg/dL (NORMAL) Urine Leukocyte Esterase Negative (NEGATIVE) Urine RBC 0-2/hpf (0-2) Urine WBC 0-5/hpf (0-5) Urine Epithelial Cells Occasional/hpf (NONE-MOD) Urine Crystals None seen (NONE SEEN) Urine Bacteria None/hpf (NONE-FEW) Urine Hyaline Casts None/lpf (NONE) Urine Granular Casts None seen (NONE SEEN) Urine Waxy Casts None seen (NONE SEEN) Urine Red Blood Cell Casts None seen (NONE SEEN) Urine White Blood Cell Casts None seen (NONE SEEN) Urine Mucus None seen (None Seen) Urine Trichomonas None seen (NONE SEEN) Urine Yeast None (NONE SEEN) Urinalysis Comment None Urine Culture Reflexed Not indicated White Blood Count 5.5th/mm3 (3.8-10.1) Red Blood Count 2.71mil/mm3 (3.90-5.20) Hemoglobin 9.1g/dL (12.0-15.6) Hematocrit 28.4% (35.0-46.0) Mean Corpuscular Volume 104.8fL (81-100) Mean Corpuscular Hemoglobin 33.6pg (27.0-35.0) Mean Corpuscular Hemoglobin Concent 32.0% (32.0-37.0) Red Cell Distribution Width 13.6% (12.3-15.4) Platelet Count 131bil/L (150-400) Neutrophils (%) (Auto) 73.7% (40-74) Lymphocytes (%) (Auto) 13.9% (14-46) Monocytes (%) (Auto) 11.1% (4-12) Eosinophils (%) (Auto) 0.9% (0-5) Basophils (%) (Auto) 0.2% (0-3) Sodium Level 138mEq/L (134-144) Potassium Level 4.5mEq/L (3.5-5.2) Chloride Level 103mEq/L (97-108) Carbon Dioxide Level 21mmol/L (18-29) Blood Urea Nitrogen 30mg/dL (8-27) Creatinine 1.63mg/dL (0.57-1.00) Estimat Glomerular Filtration Rate 45mL/min (>59) Glucose Level 95mg/dL (60-99) Calcium Level 8.9mg/dL (8.5-10.1) Total Bilirubin 0.5mg/dL (0.0-1.2) Aspartate Amino Transf (AST/SGOT) 18U/L (0-50) Alanine Aminotransferase (ALT/SGPT) 17U/L (0-32) Alkaline Phosphatase 65U/L (25-165) Total Protein 6.4g/dL (6.4-8.4) Albumin 3.4g/dL (3.4-5.0) Discharge Medications Discharge Medications Acidophilus/Pectin, [place] (Acidophilus Caplet) 1 Each Tablet 1 EACH PO QAM ( Reported) Aspirin Chew (Aspirin Chew) 81 Mg Chew 81 MG PO DAILY Prescribed by: DIMA CABELLO DO Cholecalciferol (Vitamin D3) (Vitamin D) 1,000 Unit Tablet 1,000 UNIT PO QAM ( Reported) Cyanocobalamin (Vitamin B-12) (Vitamin B-12) 1,000 Mcg Tablet 1,000 MCG PO QAM ( Reported) Dextran 70/Hypromellose/Pf (Artificial Tears Drops) 1 Each Droperette 1 DROP BOTH_EYES BID (Reported) Doxycycline Hyclate (Doxycycline Hyclate) 100 Mg Tablet 100 MG PO DAILY Prescribed by: DIMA CABELLO DO Famotidine (Famotidine) 20 Mg Tablet 20 MG PO QAM (Reported) Fluticasone Propionate (Flovent Diskus) 250 Mcg Disk.w.dev 1 PUFF INHALATION BID (Reported) Glucosamine (Glucosamine) 500 Mg Tablet 500 MG PO BID (Reported) Levothyroxine (Levothyroxine) 100 Mcg Tablet 100 MCG PO QAM (Reported) Lisinopril (Lisinopril) 5 Mg Tablet 2.5 MG PO DAILY Prescribed by: DIMA CABELLO DO Melatonin/Pyridoxine (Melatonin 3 mg Tablet) 1 Each Tablet 1 EACH PO HS ( Reported) Metoprolol Succinate ER (Metoprolol Succinate ER) 50 Mg Tab.er.24h 50 MG PO BID Prescribed by: DIMA CABELLO DO Multivitamin (Once Daily) 1 Each Tablet 1 EACH PO QAM (Reported) Mupirocin (Mupirocin Ointment) 22 Gm Oint...g. 1 APPLIC TOPICAL BID Prescribed by: DIMA CABELLO DO Olanzapine (Olanzapine) 5 Mg Tablet 5 MG PO QPM (Reported) Oxybutynin Chloride ER (Oxybutynin Chloride ER) 10 Mg Tab.er.24 10 MG PO QPM ( Reported) Paroxetine (Paroxetine) 20 Mg Tablet 20 MG PO QPM (Reported) Terbinafine (Terbinafine) 250 Mg Tablet 250 MG PO BID (Reported) Tizanidine (Tizanidine) 4 Mg Tablet 4 MG PO TID (Reported) Trazodone (Trazodone) 50 Mg Tablet 25 MG PO HS (Reported) As needed Bisacodyl (Dulcolax) 5 Mg Tablet.dr 5 MG PO QAM PRN PRN For Constipation ( Reported) Docusate Sodium (Docusate Sodium) 250 Mg Capsule 250 MG PO QAM PRN PRN For Constipation (Reported) Guaifenesin/Codeine Phosphate (Guaifen-Codeine 100-10 mg/5 ml) 120 Ml Liquid 10 ML PO Q4H PRN PRN For Cough (Reported) Hydrocodone-Acetaminophen 5-325 mg (Hydrocodone-Acetaminophen 5-325 mg) 1 Each Tablet 1-2 TABLET PO BID PRN PRN For Pain (Reported) Ondansetron (Ondansetron) 4 Mg Tablet 4 MG PO DAILY PRN PRN For Nausea/Vomiting (Reported) Polyethylene Glycol 3350 (Miralax) 17 Gm Powd.pack 17 GM PO QAM PRN PRN For Constipation (Reported) Sennosides (Senna) 8.6 Mg Tablet 17.2 MG PO QAM PRN PRN For Constipation ( Reported) Additional med instructions New medications: Aspirin 81 mg daily. Doxycycline 100 mg daily 4 days. Lisinopril 2.5 mg daily. Metoprolol succinate 50 mg twice a day. Bactroban 1/4 inch applied into each nostril twice daily for 3 more applications total. Continue medications: Acidophilus 1 tablet daily. Dulcolax 5 mg every morning as needed for constipation. Vitamin D3 1000 units daily. Vitamin B12 1000 g daily. Artificial tears 1 drop in both eyes twice a day. Colace 250 mg every morning as needed for constipation. Famotidine 20 mg daily. Fluticasone 1 puff inhaled twice a day. Glucosamine 500 mg twice a day. Guaifenesin/codeine 10 mL every 4 hours as needed for cough. Hydrocodone 5-325 mg 1-2 tablets twice a day as needed for pain. Levothyroxine 100 g daily. Melatonin 3 mg daily at bedtime. Multivitamin daily. Olanzapine 5 mg every afternoon. Ondansetron 4 mg daily as needed for nausea. Oxybutynin chloride ER 10 mg every afternoon. Paroxetine 20 mg every afternoon. MiraLAX 17 g every morning as needed for constipation. Senna 17.2 mg every morning as needed for constipation. Terbinafine 250 mg twice a day. Tizanidine 4 mg 3 times a day. Trazodone 25 mg daily at bedtime. Discontinued medications: Metoprolol tartrate 12.5 mg every morning. Followup Plan Disposition: [facility]. . Follow-up plan Please follow up with your spot man, Dr. Lord, in the next week regarding your hospitalization for your stress cardiomyopathy and recent pacemaker placement. Please follow up with nephrology, Dr. Jenkins , in the next 2 -3 weeks. . Discharge Diet: Low fat, Low Sodium, Heart Healthy Discharge Activity: Limited until seen by PCP Patient Instructions Discharging home to [facility] assisted living facility. . Follow-up Provider: Mitesh Lord MD Follow-up with PCP in: 1 week Provider: Luann Johnson MD Follow-up in: 3 weeks Time spent 32 minutes Attending Statement The patient was seen and examined together with Dr. Cabello on 12/16/2016 and I agree with the history, exam and plan as outlined in the note above. Dima Cabello DO Dec 16, 2016 19:49 Barrington Jeong MD Dec 17, 2016 09:52
== END 2016-12-16 13:15 | disposition home or self-care (01) | DRG 242 ==
LOC: SED 10:03 → MPC 12:55 → OBSVTOIN 12:55
PROVIDERS: ADMIT Hospitalist; ATTEND Hospitalist
PROC: 0JPT0PZ Removal of Cardiac Rhythm Related Device from Trunk Subcutaneous Tissue and Fascia, Open Approach (ICD-10-PCS; principal; 2016-12-13)
PROC: 0JH606Z Insertion of Pacemaker, Dual Chamber into Chest Subcutaneous Tissue and Fascia, Open Approach (ICD-10-PCS; 2016-12-13)
PROC: 02H63JZ Insertion of Pacemaker Lead into Right Atrium, Percutaneous Approach (ICD-10-PCS; 2016-12-13)
PROC: 02HK3JZ Insertion of Pacemaker Lead into Right Ventricle, Percutaneous Approach (ICD-10-PCS; 2016-12-13)
DX: I51.81 Takotsubo syndrome (principal); N17.0 Acute kidney failure with tubular necrosis; F11.20 Opioid dependence, uncomplicated; I69.354 Hemiplegia and hemiparesis following cerebral infarction affecting left non-dominant side; T82.198A Other mechanical complication of other cardiac electronic device, initial encounter; I49.5 Sick sinus syndrome; E11.9 Type 2 diabetes mellitus without complications; E03.9 Hypothyroidism, unspecified; K21.9 Gastro-esophageal reflux disease without esophagitis; Z87.891 Personal history of nicotine dependence; I12.9 Hypertensive chronic kidney disease with stage 1 through stage 4 chronic kidney disease, or unspecified chronic kidney disease; E78.5 Hyperlipidemia, unspecified; G89.29 Other chronic pain; F31.9 Bipolar disorder, unspecified; D63.1 Anemia in chronic kidney disease; N18.3 Chronic kidney disease, stage 3 (moderate)

== ENCOUNTER 2016-12-23 08:06 | Emergency (ER) | payer MEDICARE, OTHER ==
[~2016-12-23 08:06] MED LIST changes: -ASPI-973 PO; +ASPI81TA3 PO; +BISA-67 PO; -CALC-952 PO; -CEPH-512 PO; +CHOL100043 PO; +CYAN10008 PO; -DIPH25CA6 PO; -DOCU-41 PO; +DOCU250C2 PO; +DOXY100T2 PO; -FAMO20T PO; +FAMO20TA4 PO; -FERR-83 PO; -FLUT16SP NS; +FLUT250D2 INHALATION; +GLUC500T12 PO; +GUAI120L30 PO; -KTC2C15 TP; +LISI-571 PO; -MAG355OR31 PO; -MAGN800O PO; +MELA1TAB11 PO; +METO-272 PO; -METO25TA6 PO; +MULT-666 PO; +MUPI22OI2 TOPICAL; -OLAN2.5T20 PO; +OLAN5TAB PO; +ONDA-53 PO; +SENN-133 PO; -SODI126M NS; +TERB250T11 PO; +TIZA4TAB4 PO; -ZIT250 PO
--- NOTE | 2016-12-23 08:19 | ED.REPORT ---
HPI-General Illness Date of Service Dec 23, 2016 ED Provider: Dov Shelley MD A 71 year old female with history of type II diabetes mellitus, hypertension, hypoproliferative anemia, stroke, remote CVA with left-sided hemiparesis, s/p pacemaker, hypothyroidism, CKD stage II, bipolar disorder and GERD presents to the ED via EMS complaining of back pain that began last night. Patient states that the pain "shoots" down her right leg. Associated symptoms include bilateral tingling in her feet, diarrhea, nausea, vomiting, and urinary incontinence. The urinary incontinence has been present for the past year and occurs approx. 2 times per night. Patient was recently admitted on 12/07 for chest pain and was discharged on 12/18 in good condition. She denies any similar episodes of pain. Patient denies fever, chest pain, SOB, abdominal pain or dysuria. Nursing Notes Stated Complaint: R LEG PAIN Chief Complaint: Female Abdominal Pain Nursing Notes Reviewed: Yes Allergies: Coded Allergies: TAPE (Verified Allergy, Severe, Sensitive Skin/Blisters ([employer]& [place]) , 12/07/16) gabapentin (Verified Allergy, Severe, Edema, 12/07/16) meperidine (Verified Allergy, Severe, Seizures, 12/07/16) phenytoin (Verified Allergy, Severe, "I Turn Black", 12/07/16) ciprofloxacin (Verified Allergy, Intermediate, 12/07/16) Reported reaction from RN at [facility] deferasirox (Verified Allergy, Unknown, 12/07/16) latex (Verified Allergy, Unknown, 12/07/16) codeine (Verified Adverse Reaction, Mild, itching, 12/07/16) calcium (Verified Adverse Reaction, Unknown, CALCIUM CITRATE, 12/07/16) Uncoded Allergies: HAYFEVER (Allergy, Unknown, 07/16/16) STRAWBERRIES, (Allergy, Unknown, 07/16/16) Scheduled Acidophilus/Pectin, Plato (Acidophilus Caplet) 1 Each Tablet 1 EACH PO QAM Aspirin Chew (Aspirin Chew) 81 Mg Chew 81 MG PO DAILY Cephalexin (Keflex) 500 Mg Capsule 500 MG PO QID Cholecalciferol (Vitamin D3) (Vitamin D) 1,000 Unit Tablet 1,000 UNIT PO QAM Cyanocobalamin (Vitamin B-12) (Vitamin B-12) 1,000 Mcg Tablet 1,000 MCG PO QAM Dextran 70/Hypromellose/Pf (Artificial Tears Drops) 1 Each Droperette 1 DROP BOTH_EYES BID Doxycycline Hyclate (Doxycycline Hyclate) 100 Mg Tablet 100 MG PO DAILY Famotidine (Famotidine) 20 Mg Tablet 20 MG PO QAM Fluticasone Propionate (Flovent Diskus) 250 Mcg Disk.w.dev 1 PUFF INHALATION BID Glucosamine (Glucosamine) 500 Mg Tablet 500 MG PO BID Levothyroxine (Levothyroxine) 100 Mcg Tablet 100 MCG PO QAM Lisinopril (Lisinopril) 5 Mg Tablet 2.5 MG PO DAILY Melatonin/Pyridoxine (Melatonin 3 mg Tablet) 1 Each Tablet 1 EACH PO HS Metoprolol Succinate ER (Metoprolol Succinate ER) 50 Mg Tab.er.24h 50 MG PO BID Multivitamin (Once Daily) 1 Each Tablet 1 EACH PO QAM Mupirocin (Mupirocin Ointment) 22 Gm Oint...g. 1 APPLIC TOPICAL BID Olanzapine (Olanzapine) 5 Mg Tablet 5 MG PO QPM Oxybutynin Chloride ER (Oxybutynin Chloride ER) 10 Mg Tab.er.24 10 MG PO QPM Paroxetine (Paroxetine) 20 Mg Tablet 20 MG PO QPM Terbinafine (Terbinafine) 250 Mg Tablet 250 MG PO BID Tizanidine (Tizanidine) 4 Mg Tablet 4 MG PO TID Trazodone (Trazodone) 50 Mg Tablet 25 MG PO HS Scheduled PRN Bisacodyl (Dulcolax) 5 Mg Tablet.dr 5 MG PO QAM PRN PRN For Constipation Docusate Sodium (Docusate Sodium) 250 Mg Capsule 250 MG PO QAM PRN PRN For Constipation Guaifenesin/Codeine Phosphate (Guaifen-Codeine 100-10 mg/5 ml) 120 Ml Liquid 10 ML PO Q4H PRN PRN For Cough Hydrocodone-Acetaminophen 5-325 mg (Hydrocodone-Acetaminophen 5-325 mg) 1 Each Tablet 1-2 TABLET PO BID PRN PRN For Pain Ondansetron (Ondansetron) 4 Mg Tablet 4 MG PO DAILY PRN PRN For Nausea/Vomiting Polyethylene Glycol 3350 (Miralax) 17 Gm Powd.pack 17 GM PO QAM PRN PRN For Constipation Sennosides (Senna) 8.6 Mg Tablet 17.2 MG PO QAM PRN PRN For Constipation General Time Seen by MD: 08:18 Chief Complaint Other (Back Pain) Hx Obtained From: Patient Arrived By: Ambulance Sudden in Onset?: No Onset Occurred: 21 - 23 hours ago Symptom Duration: Since onset Location: : Back Quality: Painful Radiation: : Does not radiate Severity: Current: Moderate Severity: Maximum: Moderate Associated with: Reports: Nausea, Vomiting, Denies: Abdominal pain, Chest pain, Fever, Shortness of breath Pertinent Negative: Pt denies other symptoms Recent Healthcare: Recent doctor visit, Recent hospitalization Past Medical History Past Medical History H/o bipolar with psychosis Diabetes mellitus type 2 diet-controlled, chronic Hypoproliferative anemia, seen by Dr. Alvarado. 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 Hypothyroidism History of kidney stones GERD Hypertension History of endometriosis Osteoarthritis diffuse with chronic pain. Past Surgical History Cataract removal in 2006 Pacemaker placement, Hysterectomy at age 29 Cholecystectomy Tonsillectomy. Status post surgery for small bowel adhesions, hernia repair, and colon surgery Multiple hip replacements on the left x3. Smoking History Former Smoker Social History POLST indicates full code Alcohol Use: "Social" Drug Use: Denies drug use Other Social History: , Local resident Ambulatory Status Walker Review of Systems Full Review of Systems Constitutional: Denies: Chills, Fever Respiratory: Denies: Shortness of breath Cardiovascular: Denies: Chest pain GI: Reports: Diarrhea, Nausea, Vomiting, Denies: Abdominal pain Female: Reports: Incontinence (Urinary ), Denies: Dysuria Musculoskeletal: Reports: Back pain Neurologic: Reports: Numbness (tingling in feet), Denies: Change LOC Complete sys rev & neg: except as marked. Physical Exam Vital Signs Vital Signs Date Time Temp Pulse Resp B/P Pulse Ox O2 Delivery O2 Flow Rate FiO2 12/23/16 08:20 36.8 60 20 141/74 98 Room Air Initial VS: Reviewed Head / Eyes: Atraumatic, Normocephalic, PERRL Neck: Supple, Non-tender, Full range of motion Skin: Warm, Dry, No cyanosis Psychiatric: Mood/affect normal, Behavior normal, Normal thought content General/Constitutional: Awake, Alert, No acute distress Respiratory / Chest: Atraumatic, Breath sounds NL, Breath sounds = bilat Cardiovascular: Peripheral circulation NL (No lower extremity edema ) Back: Atraumatic, No CVA tenderness BACK: Right lower back reproducible pain Positive straight leg test on the right Upper Extremities Upper Extremity / MS: Atraumatic, Inspection NL, Neurologic intact, Vascular intact Lower Extremity / Pelvis / MS: Atraumatic, Neurologic intact, Vascular intact Interpretation & Diagnostics VENOUS LEG DUPLEX Read by Radiology IMPRESSION: No sonographic evidence for right lower extremity deep venous thrombosis. Dictated by: Jomar Marino M.D. on 12/23/2016 at 9:35 Lab Results Interpretation Result Diagram: 12/23/16 0910 12/23/16 0910 Test 12/23/16 08:45 12/23/16 09:10 White Blood Count 8.1th/mm3 (3.8-10.1) Red Blood Count 3.69mil/mm3 (3.90-5.20) Hemoglobin 12.3g/dL (12.0-15.6) Hematocrit 36.4% (35.0-46.0) Mean Corpuscular Volume 98.6fL (81-100) Mean Corpuscular Hemoglobin 33.3pg (27.0-35.0) Mean Corpuscular Hemoglobin Concent 33.8% (32.0-37.0) Red Cell Distribution Width 13.0% (12.3-15.4) Platelet Count 302bil/L (150-400) Neutrophils (%) (Auto) 81.9% (40-74) Lymphocytes (%) (Auto) 11.3% (14-46) Monocytes (%) (Auto) 5.2% (4-12) Eosinophils (%) (Auto) 0.2% (0-5) Basophils (%) (Auto) 0.2% (0-3) Sodium Level 133mEq/L (134-144) Potassium Level 5.1mEq/L (3.5-5.2) Chloride Level 95mEq/L (97-108) Carbon Dioxide Level 17mmol/L (18-29) Blood Urea Nitrogen 40mg/dL (8-27) Creatinine 1.93mg/dL (0.57-1.00) Estimat Glomerular Filtration Rate 37mL/min (>59) Glucose Level 108mg/dL (60-99) Calcium Level 9.7mg/dL (8.5-10.1) Total Bilirubin 0.6mg/dL (0.0-1.2) Aspartate Amino Transf (AST/SGOT) 27U/L (0-50) Alanine Aminotransferase (ALT/SGPT) 15U/L (0-32) Alkaline Phosphatase 84U/L (25-165) Total Protein 8.4g/dL (6.4-8.4) Albumin 4.5g/dL (3.4-5.0) Urinalysis Interpretation Positive blood (250), Positive ketones, Positive leukocyte est (++), Positive nitrite Re-Eval/Medical Decision Med Decision/Clinical Course 71-year-old female history of CK D, bipolar, diabetes with recent pacemaker placement and recent left femur repair presenting with low back pain radiating down the back of the right leg. She has never had this before. No red flag sxs. Vital signs stable. Labs stable. Urine indicative of UTI. Positive straight leg raise. US no DVT. Back pain likely due to sciatica versus UTI. Patient was given 1 dose of Rocephin. She has no sign symptoms of sepsis or pyelonephritis will be discharged with Keflex. Recommend Tylenol for her sciatica given CK D avoiding NSAIDs. Counseled re signs/symptoms of pyelonephritis and return precautions. Time of Eval: 10:25 Patient Status: Condition improved Re-Evaluation/Progress Note: Patient is rechecked. She is feeling much better. She is informed of her lab results, CT results and diagnosis. All of the patient's questions are addressed. She understands and agrees with the treatment plan. Counseled Regarding: Diagnosis, Lab results, Need for follow-up, When/why to return to ED Discharge & Departure Primary Impression: Urinary tract infection Urinary tract infection type: site unspecified Hematuria presence: without hematuria Qualified Code: N39.0 - Urinary tract infection, site not specified Additional Impression: Sciatica Laterality: unspecified laterality Qualified Code: M54.30 - Sciatica, unspecified side Disposition: Home Discharge Condition All VS Reviewed: Yes Condition: Stable Patient Instructions: Sciatica (ED), Urinary Tract Infection in Women (ED) Additional Instructions: Thank you for trusting us with your care this morning. Your ultrasound is reassuring at this time and I believe your pain is likely due to sciatica. Your lab results also revealed a urinary tract infection. Take Keflex as prescribed and take Tylenol as needed for pain. Schedule a follow up appointment with your primary care physician in the next 2- 3 days for a recheck. Please return to the emergency department for any worsening back pain, numbness , tingling or swelling in the legs, fever, chills, vomiting or new or worsening conditions. Referrals: Nael Jin MD (PCP) Jered Attestation Portions of this note were transcribed by Marcial Conner. I, Dr. Shelley personally performed the history, physical exam and medical decision-making; I reviewed and confirmed the accuracy of the information in the transcribed note. Signed by: Jered Renee, 12/23/16 1030. copies to: Nael Jin MD, Ben M MD Dec 23, 2016 08:19 MARCIAL CONNER Dec 23, 2016 08:32
[2016-12-23 08:20] VITALS: BP 141/74; PULSE 60; RESP 20; O2SAT 98
[2016-12-23] MEDS ORDERED: Ketorolac 30 mg/mL 2 mL Inj IM ONE (08:40)
[2016-12-23] MEDS ORDERED: cefTRIAXone Inj 1,000 MG, Lidocaine PF 1% Inj 2.1 ML in Syringe 0 EACH IM ONE (09:20)
[2016-12-23 09:30] LABS: BASOPHILS % (AUTO) 0.2 % (0-3); EOSINOPHILS % (AUTO) 0.2 % (0-5); MONOCYTES % (AUTO) 5.2 % (4-12); Mean Corpuscular Hemoglobin 33.3 pg (27.0-35.0); Mean Corpuscular Volume 98.6 fL (81-100); NEUTROPHILS % (AUTO) 81.9 % (40-74); Platelet Count 302 bil/L (150-400)
--- NOTE | 2016-12-23 09:37 | DRSVH ---
PROCEDURE: US VEINOUS LEG DUPLEX UNILATERAL, RIGHT INDICATIONS: 71 year-old female with right lower extremity pain after recent orthopedic surgery. TECHNIQUE: Real-time imaging, as well as color and pulse Doppler interrogation, were performed of the lower extr emity deep veins from the inguinal ligament to the popliteal fossa. COMPARISON: [facility], [place], US VENOUS LEG DPLX BILAT, 06/15/2016, 21:20. FINDINGS: The deep veins are normally compressible, and free of intraluminal thrombus. Color and pu lse Doppler demonstrate normal phasic intraluminal flow. There is normal augmentation response to di stal compression maneuver. IMPRESSION: No sonographic evidence for right lower extremity deep venous thrombosis. Dictated by: Jomar Marino M.D. on 12/23/2016 at 9:35 Approved by: Jomar Marino M.D. on 12/23/2016 at 9:35
[2016-12-23] MEDS ORDERED: CEPH-512 PO (10:22)
[2016-12-23 11:14] LABS: APPEARANCE,URINE CLOUDY (CLEAR,HAZY); COLOR,URINE STRAW (YELLOW)
[2016-12-23 11:15] LABS: OCCULT BLOOD,URINE SMALL (NEGATIVE); UROBILINOGEN,URINE NORMAL (NORMAL)
== END 2016-12-23 10:44 | disposition home or self-care (01) ==
LOC: SED 08:06 → EDBD 08:06 → SED 10:44
DX: N39.0 Urinary tract infection, site not specified (principal); M54.41 Lumbago with sciatica, right side; B96.89 Other specified bacterial agents as the cause of diseases classified elsewhere; E11.22 Type 2 diabetes mellitus with diabetic chronic kidney disease; I12.9 Hypertensive chronic kidney disease with stage 1 through stage 4 chronic kidney disease, or unspecified chronic kidney disease; N18.2 Chronic kidney disease, stage 2 (mild); F31.89 Other bipolar disorder; D61.9 Aplastic anemia, unspecified; I69.398 Other sequelae of cerebral infarction; E03.9 Hypothyroidism, unspecified; K21.9 Gastro-esophageal reflux disease without esophagitis; Z95.0 Presence of cardiac pacemaker; Z98.890 Other specified postprocedural states; Z87.442 Personal history of urinary calculi; Z87.891 Personal history of nicotine dependence; Z79.82 Long term (current) use of aspirin; Z88.8 Allergy status to other drugs, medicaments and biological substances; Z88.5 Allergy status to narcotic agent; Z88.1 Allergy status to other antibiotic agents
CPT/HCPCS: 36415; 80053; 81000; 85025; 87077; 87086; 87088; 87186; 93971; 96372; 99285; J0696; J1885

== ENCOUNTER 2016-12-24 16:43 | Inpatient (IN) | payer MEDICARE, OTHER ==
[2016-12-24] VITALS (11 sets, daily range): BP systolic 75–113; BP diastolic 43–55; PULSE 60–62; RESP 16–23; O2SAT 98–100
[~2016-12-24] VITALS: Ht 166.4 cm; Wt 80.8 kg
[~2016-12-24 16:43] MED LIST changes: +CEPH-512 PO
--- NOTE | 2016-12-24 17:11 | ED.REPORT ---
HPI-General Illness Date of Service Dec 24, 2016 ED Provider: Dwaine Deutsch MD A 71 year old female with a medical history including diabetes, hypertension, anemia, stroke, GERD, CVA, and stress-induced cardiomyopathy s/p pacemaker placement presents to the ED via EMS with hypotension measured routinely by her home health nurse today. The patient also reports chills, nausea onset three days ago, and reflux chest pain since lunch this afternoon. She denies fever, vomiting, shortness of breath, or other symptoms. EMS found the patient with a BP of 78/56 and otherwise normal vital signs. She was in the ED yesterday with sciatica and a UTI. Her pacemaker was recently replaced on 12/13/16. Nursing Notes Stated Complaint: LOW BLOOD PRESSURE Chief Complaint: General Complaint Nursing Notes Reviewed: Yes Allergies: Coded Allergies: TAPE (Verified Allergy, Severe, Sensitive Skin/Blisters ([employer] [place]) , 12/24/16) gabapentin (Verified Allergy, Severe, Edema, 12/24/16) meperidine (Verified Allergy, Severe, Seizures, 12/24/16) phenytoin (Verified Allergy, Severe, "I Turn Black", 12/24/16) ciprofloxacin (Verified Allergy, Intermediate, 12/24/16) Reported reaction from RN at [facility] deferasirox (Verified Allergy, Unknown, 12/24/16) latex (Verified Allergy, Unknown, 12/24/16) codeine (Verified Adverse Reaction, Mild, itching, 12/24/16) calcium (Verified Adverse Reaction, Unknown, CALCIUM CITRATE, 12/07/16) Uncoded Allergies: HAYFEVER (Allergy, Unknown, 07/16/16) STRAWBERRIES, (Allergy, Unknown, 07/16/16) Scheduled Acidophilus/Pectin, [place] (Acidophilus Caplet) 1 Each Tablet 1 EACH PO QAM Aspirin Chew (Aspirin Chew) 81 Mg Chew 81 MG PO DAILY Cephalexin (Keflex) 500 Mg Capsule 500 MG PO QID Cholecalciferol (Vitamin D3) (Vitamin D) 1,000 Unit Tablet 1,000 UNIT PO QAM Cyanocobalamin (Vitamin B-12) (Vitamin B-12) 1,000 Mcg Tablet 1,000 MCG PO QAM Dextran 70/Hypromellose/Pf (Artificial Tears Drops) 1 Each Droperette 1 DROP BOTH_EYES BID Famotidine (Famotidine) 20 Mg Tablet 20 MG PO QAM Fluticasone Propionate (Flovent Diskus) 250 Mcg Disk.w.dev 1 PUFF INHALATION BID Glucosamine (Glucosamine) 500 Mg Tablet 500 MG PO BID Levothyroxine (Levothyroxine) 100 Mcg Tablet 100 MCG PO QAM Lisinopril (Lisinopril) 5 Mg Tablet 2.5 MG PO DAILY Melatonin/Pyridoxine (Melatonin 3 mg Tablet) 1 Each Tablet 1 EACH PO HS Metoprolol Succinate ER (Metoprolol Succinate ER) 50 Mg Tab.er.24h 50 MG PO BID Multivitamin (Once Daily) 1 Each Tablet 1 EACH PO QAM Olanzapine (Olanzapine) 5 Mg Tablet 5 MG PO QPM Oxybutynin Chloride ER (Oxybutynin Chloride ER) 10 Mg Tab.er.24 10 MG PO QPM Paroxetine (Paroxetine) 20 Mg Tablet 20 MG PO QPM Terbinafine (Terbinafine) 250 Mg Tablet 250 MG PO BID Tizanidine (Tizanidine) 4 Mg Tablet 4 MG PO TID Trazodone (Trazodone) 50 Mg Tablet 25 MG PO HS Scheduled PRN Bisacodyl (Dulcolax) 5 Mg Tablet.dr 5 MG PO QAM PRN PRN For Constipation Docusate Sodium (Docusate Sodium) 250 Mg Capsule 250 MG PO QAM PRN PRN For Constipation 30 DAY SUPPLY STARTED ON 12/19 Guaifenesin/Codeine Phosphate (Guaifen-Codeine 100-10 mg/5 ml) 120 Ml Liquid 10 ML PO Q4H PRN PRN For Cough Hydrocodone-Acetaminophen 5-325 mg (Hydrocodone-Acetaminophen 5-325 mg) 1 Each Tablet 1-2 TABLET PO BID PRN PRN For Pain Ondansetron (Ondansetron) 4 Mg Tablet 4 MG PO DAILY PRN PRN For Nausea/Vomiting Polyethylene Glycol 3350 (Miralax) 17 Gm Powd.pack 17 GM PO QAM PRN PRN For Constipation Sennosides (Senna) 8.6 Mg Tablet 17.2 MG PO QAM PRN PRN For Constipation General Time Seen by MD: 16:59 Chief Complaint Other (Hypotension) Hx Obtained From: Patient, EMS Arrived By: Ambulance Sudden in Onset?: No Onset Occurred: 1 - 4 hours ago Symptom Duration: Since onset Location: : Chest Quality: Painful (Reflux) Severity: Current: Mild Severity: Maximum: Mild Associated with: Reports: Chest pain (Reflux), Nausea, Denies: Fever Pertinent Negative: Relieved by nothing Context Related History: Reports Diabetes mellitus, Reports GERD Recent Healthcare: Recent doctor visit, Previous surgery Past Medical History Past Medical History Notes: 12/24/16: Admit 12/07- for pacemaker replacement for sick sinus Seen in ED yesterday 12/23/16 for back pain and sciatica Patient is on doxycycline, plus Keflex, and received a dose of Rocephin yesterday for question UTI Echocardiogram November 2016 EF of 30-35%, akinesis along the distal one third of the left ventricular segments, hypokinesis on the middle one third, and the basal or proximal one third are normal [place] hyperkinetic-findings suspicious for stress-induced cardiomyopathy, but cannot completely exclude LAD infarction Past Medical History H/o bipolar with psychosis Diabetes mellitus type 2 diet-controlled, chronic Hypoproliferative anemia, seen by Dr. Alvarado. 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 Hypothyroidism History of kidney stones GERD Hypertension History of endometriosis Osteoarthritis diffuse with chronic pain. Past Surgical History Cataract removal in 2006 Pacemaker placement Hysterectomy at age 29 Cholecystectomy Tonsillectomy. Status post surgery for small bowel adhesions, hernia repair, and colon surgery Multiple hip replacements on the left x3. Smoking History Former Smoker Social History POLST indicates full code Alcohol Use: "Social" Drug Use: Denies drug use Other Social History: , Local resident Ambulatory Status Walker Review of Systems + Hypotension (78/56 per EMS) Full Review of Systems Constitutional: Reports: Chills, Denies: Fever Respiratory: Denies: Non-productive cough, Shortness of breath Cardiovascular: Reports: Chest pain (Reflux) GI: Reports: Nausea, Denies: Diarrhea, Vomiting Complete sys rev & neg: except as marked. Physical Exam Vital Signs Vital Signs Date Time Temp Pulse Resp B/P Pulse Ox O2 Delivery O2 Flow Rate FiO2 12/24/16 19:45 60 18 98/43 100 Room Air 12/24/16 19:30 60 23 90/49 100 Room Air 12/24/16 18:15 61 18 92/48 12/24/16 18:00 62 18 86/52 12/24/16 17:45 60 18 81/45 12/24/16 17:15 60 18 75/49 98 Room Air 12/24/16 16:56 36.3 60 17 101/47 99 Room Air 12/24/16 16:45 60 18 101/47 99 Room Air Initial VS: Reviewed, Vital signs abnormal Head / Eyes: Atraumatic, Normocephalic Abdomen / GI: Soft, Non-tender Skin: Warm, Dry Psychiatric: Mood/affect normal, Behavior normal, Normal thought content General/Constitutional: Awake, Alert, Not toxic appearing Appears fatigued Respiratory / Chest: Breath sounds NL, Breath sounds = bilat, No respiratory distress Trauma - General: Positive: Ecchymosis (Surrounding pacemaker revision site) Cardiovascular: Heart rate NL, Regular rhythm, Heart sounds NL Lower Extremity / Pelvis / MS: Neurologic intact, Vascular intact Left leg in splint Neurologic: Oriented X3, Speech NL Mentating normally despite blood pressure in the 70s Interpretation & Diagnostics Interpretation & Diagnostics: Urinalysis from 12/23 yesterday positive for greater than 100,000 Escherichia coli, sensitivities pending Lab Results Interpretation Result Diagram: 12/24/16 1830 12/24/16 1745 Test 12/24/16 17:45 12/24/16 18:30 12/24/16 18:57 White Blood Count 7.2th/mm3 (3.8-10.1) Red Blood Count 2.88mil/mm3 (3.90-5.20) Mean Corpuscular Volume 100.0fL (81-100) Mean Corpuscular Hemoglobin 33.7pg (27.0-35.0) Mean Corpuscular Hemoglobin Concent 33.7% (32.0-37.0) Red Cell Distribution Width 13.4% (12.3-15.4) Platelet Count 310bil/L (150-400) Neutrophils (%) (Auto) 76.9% (40-74) Lymphocytes (%) (Auto) 16.9% (14-46) Monocytes (%) (Auto) 4.6% (4-12) Eosinophils (%) (Auto) 0.8% (0-5) Basophils (%) (Auto) 0.1% (0-3) D-Dimer 0.8mg/L (<0.50) Sodium Level 127mEq/L (134-144) Potassium Level 5.0mEq/L (3.5-5.2) Chloride Level 94mEq/L (97-108) Carbon Dioxide Level 18mmol/L (18-29) Blood Urea Nitrogen 44mg/dL (8-27) Creatinine 2.05mg/dL (0.57-1.00) Estimat Glomerular Filtration Rate 34mL/min (>59) Glucose Level 76mg/dL (60-99) Lactic Acid Level 0.8mmol/L (0.4-2.0) Calcium Level 8.6mg/dL (8.5-10.1) Total Bilirubin 0.4mg/dL (0.0-1.2) Aspartate Amino Transf (AST/SGOT) 20U/L (0-50) Alanine Aminotransferase (ALT/SGPT) 11U/L (0-32) Alkaline Phosphatase 68U/L (25-165) Troponin T 0.029ug/L (0.0-0.011) Pro-B-Type Natriuretic Peptide 3610pg/mL (0-301) Total Protein 7.1g/dL (6.4-8.4) Albumin 3.5g/dL (3.4-5.0) Hold Mortensen Top Tube Received (Received) Hemoglobin 9.1g/dL (12.0-15.6) Hematocrit 27.9% (35.0-46.0) Urine Color Yellow (YELLOW) Urine Appearance Clear (CLEAR,HAZY) Urine pH 5.5 (5.0-8.0) Urine Specific Lillian 1.010 (1.003-1.035) Urine Protein Negativemg/dL (NEG,TRACE) Urine Glucose (UA) Negativemg/dL (NEGATIVE) Urine Ketones Negativemg/dL (NEGATIVE) Urine Occult Blood Trace (NEGATIVE) Urine Nitrite Negative (NEGATIVE) Urine Bilirubin Negative (NEGATIVE) Urine Urobilinogen Normalmg/dL (NORMAL) Urine Leukocyte Esterase Small (NEGATIVE) Urine RBC 0-2/hpf (0-2) Urine WBC 6-10/hpf (0-5) Urine Epithelial Cells Few/hpf (NONE-MOD) Urine Crystals None seen (NONE SEEN) Urine Bacteria Few/hpf (NONE-FEW) Urine Hyaline Casts None/lpf (NONE) Urine Granular Casts None seen (NONE SEEN) Urine Waxy Casts None seen (NONE SEEN) Urine Red Blood Cell Casts None seen (NONE SEEN) Urine White Blood Cell Casts None seen (NONE SEEN) Urine Mucus None seen (None Seen) Urine Trichomonas None seen (NONE SEEN) Urine Yeast None (NONE SEEN) Urinalysis Comment None Urine Culture Reflexed Indicated Lab Results Interpretation: CBC positive anemia, down from yesterday-the same level of anemia as documented hematocrits in recent weeks, repeat H&H unchanged CMP mild hyponatremia, worsening creatinine (1.3 several weeks ago) Troponin marginally elevated pro BNP marginally elevated uncertain significance-patient status post recent pacemaker placement and with renal insufficiency, getting interpretation Lactic acid normal Blood cultures pending Urine culture pending from 12/23 ECG Interpretation ECG Interpretation: AV-paced rhythm rate 60 Changed from previous on 12/14/16 - suspect this is due to change in pacing LBBB Time: 18:12 Interpreted by: ED physician X-Ray Chest Interpretation Chest Xray Interpretation: IMPRESSION: No acute pulmonary process. Dictated by: Megan Kendrick M.D. on 12/24/2016 at 17:42 View: Portable, 1 view Interpretation / Wet Read by: Interpret - Radiologist Re-Eval/Medical Decision Med Decision/Clinical Course This is a 71-year-old female who was seen yesterday with some left-sided pain and was thought to possibly have a UTI versus sciatica and was given an IM dose of ceftriaxone, discharged back on oral anabolic cephalexin (and is also on doxycycline for reasons that are less clear to me) who just was not feeling well and had a blood pressure measured in the 60s at the [place] [facility] facility. A repeat check she will show to be low, EMS was notified they found the patient hypotensive as well. She is extremely difficult IV start, but her blood pressure improved to 90 even without intervention arrival to ED-O she supposedly had intermittent episodes of transient hypotension in the department as well. IV therapy was able to place an IV. Patient complains being fatigued , but has no new complaints. She denies fevers chills, chest pain, abdominal pain and reports of the back pain and sciatic symptoms she even had yesterday have resolved. Recent left lower extremity fracture, is in a splint-an ultrasound yesterday was negative for DVT. She has had a recent pacemaker revision, now has a place on the right side. Site appears clean dry and intact without overt clinical findings. The patient is also on metoprolol plus losartan, but is a quite low doses and it seems to have been on these medicines without hypertension previously. Patient did have a concern for possible UTI yesterday, and culture is greater than 100,000 Escherichia coli resistant concern for sepsis. Given patient just recently had a pacemaker revision is now hypertensive, has a known cardiomyopathy with a low EF-but is not febrile, and does not describe overt symptoms of sepsis a stat echocardiogram was obtained-but did not reveal any complication, pericardial tamponade or effusion, or rapid change in EF. I do not appreciate evidence of acute MA or STEMI on EKG, nor set hinted at by the echo. She is anemic, but not appears we change in recent weeks with now evidence or findings clinically of hemorrhage. D-dimer is marginally elevated, but the patient has that elevated creatinine, had an ultrasound of the left leg which is the fractured leg without signs of DVT, my suspicion for PE is rather low, but at this point repeat ultrasound of the lower extremities is being obtained. At this point sepsis remains high in the differential given the urine is culture is positive, and I have no other alternative pathologies evident in the lactic acid is normal. The patient was echo was obtained received fluids more briskly, gentle boluses were done initially-the patient did have initially several yo-yo events and blood pressure, then followed by normal blood pressure, followed by a low blood pressure. Each time I went to reevaluate her following up. If hypertension the blood pressure bounced right back she seemed to be responding-A clinically she is sitting upright in notes tremors without low complaint. She does not look as toxic as vital suggests. However, after multiple episodes-I went ahead and requested a PICC line, and an norepi drip. Naturally, the patient's blood pressure actually rebounded to 100 systolic with before any line or pressors to be initiated. In fact IV therapy came and could not find an IV on the left side that would permit a PICC line placement, and the patient has a pacemaker in the right side so is not a candidate for PICC. However this point her blood pressure is improved to the point the pressors are not indicated, and I do not think I would press for central line quite yet in this setting. The patient did receive and ceftriaxone IV. She is being admitted to the unit for continued management. Case discussed with the hospitalist. Source of Hx: Old records, EMS Time of Eval: 17:50 Re-Evaluation/Progress Note: Patient rechecked. She is still hypotensive. Discussed with patient x-ray and lab results, diagnosis, and plan for admit. Patient agrees with plan for care and all questions were addressed. Consultation : Referral / Consult Name: Wiley Diaz MD Consulted With: Hospitalist Call Returned at: 19:44 Farm Crew Member: Agrees with eval, Agrees with plan, Accepts admit Differential Diagnosis: Negative: Abdominal pain, Acute coronary syndrome, Allergies, COPD exacerbation, Fracture, Hematoma, Neutropenia, Pneumonia, Syncope Counseled Regarding: Diagnosis, Lab results, Need for admission Discharge & Departure Primary Impression: Hypotension Hypotension type: unspecified hypotension type Qualified Code: I95.9 - Hypotension, unspecified Additional Impressions: Escherichia coli urinary tract infection Renal insufficiency Sepsis Sepsis type: sepsis due to unspecified organism Qualified Code: A41.9 - Sepsis, unspecified organism Disposition: ADMITTED TO HOSPITAL Discharge Condition All VS Reviewed: Yes Condition: Improved Referrals: Nael Jin MD (PCP) Crit Care Except Billable Proc Time Spent: 30-74 minutes Services Performed: Patient management by me, Time spent at bedside, Reviewing test results, Reviewing imaging, Discussing patient care, Documentation in record, Time with fam/surrogate Scribe Attestation Portions of this note were transcribed by Indu Garnica. I, Dr. Deutsch, personally performed the history, physical exam, and medical decision-making; I reviewed and confirmed the accuracy of the information in the transcribed note. Signed by: Jered Yuen, 12/24/2016, 21:10 copies to: Nael Jin MD, Matthew F MD Dec 24, 2016 17:11 INDU GARNICA Dec 24, 2016 17:25
--- NOTE | 2016-12-24 17:45 | DRSVH ---
PROCEDURE: X-RAY CHEST ONE VIEW, PORTABLE ([id number]) INDICATIONS: hypotension TECHNIQUE: One view of the chest was acquired. COMPARISON: [facility], CR, XR CHEST 2VW, 12/14/2016, 6:43. FINDINGS: Surgical changes and devices: Pacemaker and cholecystectomy. Lungs and pleura: No pleural effusions or pneumothorax. Lungs are clear. Mediastinum: Mediastinal contours appear normal. Heart size is normal. Bones and chest wall: No suspicious bony lesions. Overlying soft tissues appear unremarkable. IMPRESSION: No acute pulmonary process. Dictated by: Megan Kendrick M.D. on 12/24/2016 at 17:42 Approved by: Megan Kendrick M.D. on 12/24/2016 at 17:43
[2016-12-24 17:53] LABS: BASOPHILS % (AUTO) 0.1 % (0-3); EOSINOPHILS % (AUTO) 0.8 % (0-5); MONOCYTES % (AUTO) 4.6 % (4-12); Mean Corpuscular Hemoglobin 33.7 pg (27.0-35.0); NEUTROPHILS % (AUTO) 76.9 % (40-74); Platelet Count 310 bil/L (150-400)
[2016-12-24] MEDS ORDERED: 0.9% Sodium Chloride 500 ML IV ONE ×3 (17:55→18:10)
[2016-12-24 18:25] LABS: TROPONIN T 0.029 ug/L (0.0-0.011)
[2016-12-24] MEDS ORDERED: cefTRIAXone Inj 2,000 MG in Dextrose 5% Minibag Plus 50 ML IV ONE (18:25)
--- NOTE | 2016-12-24 18:49 | DRSVH ---
[facility] [address] [place] [address] Echocardiogram Report Name: RADHA LITTLE Date: Height: 66 in Hospital Exam Location: [facility] Weight: 180 lb Gender: Female BSA: 1.9 m2 : 1945 Age: 71 yrs BP: 84/56 mm Hg Reason For Study: Hypotension. S/P pacemaker replacement. Performed By: Cali Mercedes Referring Physician: MIRYAM NORIEGA Interpretation Summary The left ventricle is normal in size. Left ventricular systolic function is normal. The ejection fraction is estimated to be 65-70%. The right ventricle is normal in size and function. No other echocardiographic abnormalities seen. The LV looks somewhat volumn depleted and the IVC suggests low filling pressures. Consider volumn depletion as a cause of the patients hypotension. No obvious pacemaker causes for the patients hypotension noted. Procedure: A two-dimensional transthoracic echocardiogram with color flow and Doppler was performed in limited views only. Comparison is made with the echocardiogram of 12/11/16. The study quality was technically adequate. The patient had occasional PACs during the exam. Left Ventricle: The left ventricle is normal in size. Compared to the prior exam, left ventricular function is moderately improved. The ejection fraction is estimated to be 65-70%. Left ventricular systolic function is normal. Right Ventricle: The right ventricle is normal in size and function. Atria: The left atrium grossly appears normal in size. The right atrium grossly appears normal in size. There is a catheter/pacemaker lead seen in the right atrium. Mitral Valve: The mitral valve is grossly normal. Aortic Valve: The aortic valve is grossly normal. Pulmonic Valve: The pulmonic valve is not well visualized. Great Vessels: The IVC is of normal diameter and collapses greater than 50% with a sniff. This suggests a low right atrial pressure of 3 mm Hg. Pericardium/ Pleura There is no pericardial effusion. Doppler Measurements & Calculations Ao V2 max: 185.2 cm/sec Ao V2 mean: 127.1 cm/sec LV V1 max P.7 mmHg Ao max P.7 mmHg Ao V2 VTI: 35.9 cm LV V1 VTI: 15.9 cm Ao mean P.2 mmHg LVOT Max Tomas: 82.8 cm/sec sev ratio: 0.44 Reading Physician:06:48 PM
[2016-12-24 19:25] LABS: APPEARANCE,URINE CLEAR (CLEAR,HAZY); COLOR,URINE YELLOW (YELLOW); OCCULT BLOOD,URINE TRACE (NEGATIVE); PH,URINE 5.5 (5.0-8.0); UROBILINOGEN,URINE NORMAL (NORMAL)
[2016-12-24] MEDS ORDERED: Sodium Chloride LOK Flush 10 mL Syringe IVFLUSH PRN ×2 (19:40)
[2016-12-24] MEDS ORDERED: Polyethylene Glycol (PEG) 17 Gm Powder PO PRN (20:15)
[2016-12-24] MEDS ORDERED: Norepineph 8,000 mCg/250 mL NS 8,000 MCG in IV Premix 1 EACH IV SCH (20:15)
[2016-12-24] MEDS ORDERED: Senna-Docusate 8.6-50 mg Tablet PO PRN (20:15)
[2016-12-24] MEDS ORDERED: Alum-Mag Hydrox-Simeth 30 mL Suspension PO PRN (20:15)
[2016-12-24] MEDS ORDERED: Ondansetron 2 mg/mL 2 mL Inj IVPUSH PRN (20:15)
[2016-12-24] MEDS ORDERED: Norepinephrine 8,000 mCg/250 mL D5W Premix IV SCH (20:20)
[2016-12-24] MEDS ORDERED: Norepinephrine 8,000 mCg/250 mL NS Premix IV ONE (20:22)
[2016-12-24] MEDS: 0.9% Sodium Chloride 1,000 ML IV SCH (20:37)
--- NOTE | 2016-12-24 23:38 | PCM.HPMED ---
Subjective Date of Service Dec 24, 2016 Primary Provider: Admitting Physician: Wiley Diaz MD Primary Care Physician: Nael Jin MD Attending Physician: Wiley Diaz MD Admit Status: From the Emergency Department, Full Admit, Critical Care Chief Complaint: Hypotension History of Present Illness: Camila Sharpe is a 71 year old female with Diabetes, hypertension, anemia, stroke and stress-induced cardiomyopathy s/p pacemaker placement presents to [facility] emergency department via EMS with hypotension. The patient also reports nausea onset three days ago, chills, and reflux chest pain since lunch this afternoon. She denies fever. She reports having diffuse diarrhea in the last few days associated with decreased PO intake. EMS found the patient with a BP of 78/56. She was in the Emergency department yesterday with sciatica and a UTI. She had Ceftriaxone IV and then discharge with Keflex PO Her pacemaker was recently replaced on 12/13/16. Case discussed with Dr Deutsch, patient did not respond initially to IV fluids but then SBP rise to 90. PICC line placed Review of Systems: Pertinent positives as noted in HPI. All other systems were reviewed and are negative Allergies Coded Allergies: TAPE (Verified Allergy, Severe, Sensitive Skin/Blisters ([place] [place]) , 12/24/16) gabapentin (Verified Allergy, Severe, Edema, 12/24/16) meperidine (Verified Allergy, Severe, Seizures, 12/24/16) phenytoin (Verified Allergy, Severe, "I Turn Black", 12/24/16) ciprofloxacin (Verified Allergy, Intermediate, 12/24/16) Reported reaction from RN at [facility] deferasirox (Verified Allergy, Unknown, 12/24/16) latex (Verified Allergy, Unknown, 12/24/16) codeine (Verified Adverse Reaction, Mild, itching, 12/24/16) calcium (Verified Adverse Reaction, Unknown, CALCIUM CITRATE, 12/07/16) Uncoded Allergies: HAYFEVER (Allergy, Unknown, 07/16/16) STRAWBERRIES, (Allergy, Unknown, 07/16/16) Home Medications From Discharge Summary Aspirin 81 mg daily. Doxycycline 100 mg daily 4 days. Lisinopril 2.5 mg daily. Metoprolol succinate 50 mg twice a day. Bactroban 1/4 inch applied into each nostril twice daily for 3 more applications total. Continue medications: Acidophilus 1 tablet daily. Dulcolax 5 mg every morning as needed for constipation. Vitamin D3 1000 units daily. Vitamin B12 1000 g daily. Artificial tears 1 drop in both eyes twice a day. Colace 250 mg every morning as needed for constipation. Famotidine 20 mg daily. Fluticasone 1 puff inhaled twice a day. Glucosamine 500 mg twice a day. Guaifenesin/codeine 10 mL every 4 hours as needed for cough. Hydrocodone 5-325 mg 1-2 tablets twice a day as needed for pain. Levothyroxine 100 g daily. Melatonin 3 mg daily at bedtime. Multivitamin daily. Olanzapine 5 mg every afternoon. Ondansetron 4 mg daily as needed for nausea. Oxybutynin chloride ER 10 mg every afternoon. Paroxetine 20 mg every afternoon. MiraLAX 17 g every morning as needed for constipation. Senna 17.2 mg every morning as needed for constipation. Terbinafine 250 mg twice a day. Tizanidine 4 mg 3 times a day. Trazodone 25 mg daily at bedtime. PMH 1. Hypertension. 2. Hyperlipidemia. 3. Diabetes mellitus type II, diet controlled. 4. Obstructive sleep apnea not on CPAP. 5. Remote history of tobacco use. 7. History of TIA and CVA. 8. Bradycardia status post pacemaker. 9. Anemia, chronic, hypoproliferative. 10. Gastroesophageal reflux disease. 11. Hypothyroidism. 12. Chronic kidney disease of uncertain baseline with history of acute kidney injury (recent creatinine running 1-2). 13. Incontinence. 14. Bipolar disorder type I. 15. Depression. 16. Anxiety. 17. Chronic pain with opiate habituation. 18. Femur fracture and left hip abnormality on CT. 19. History of urinary tract infection. 20. History of C. difficile colitis in July 2015. 21. History of MRSA bacteremia. 22. History of sacral decubitus ulcer. . Surgical History 1. Bilateral cataract extraction. 2. Hysterectomy BSO. 3. Cholecystectomy. 4. Tonsillectomy. 5. Laparoscopy for small-bowel adhesions x 6. 6. Unspecified small and large colon surgery. 7. Left hip replacement x 5 with hardware removal. Family History Dad of diabetic complications. Mother who had lung cancer and of pneumonia at 72 years old. Brother who had an CA in his 40's and is alive and well. Social History Hx Alcohol Use: No Hx Substance Use: No Hx Tobacco Use: Yes (remote history) Smoking Status: Former Smoker Living Arrangement: Long-Term Facility Exam Vital Signs Vital Sign - Last Date Time Temp Pulse Resp B/P Pulse Ox O2 Delivery O2 Flow Rate FiO2 12/24/16 20:09 60 16 103/44 100 Room Air 12/24/16 16:56 36.3 Exam General: Alert, Oriented X3, Cooperative, No acute Distress Eyes: PERRLA, Scleral Anicteric Mouth: Mouth Normal, Mucous Membranes Moist/[place] Neck: Supple, no Thyromegaly, trachea central. Chest & Lungs: Clear to auscultation & percussion, No adventitious breath sounds, no crackles, no wheeze Cardiovascular: Normal S1, Normal S2, No Murmurs/Rubs/Gallops, Regular Rate/ Rhythm, (No JVD, no peripheral edema) Pulses: Radial (present and equal), Dorsalis Pedi (present and equal) Abdomen: Soft, Non-tender, Non-distended, Normoactive bowel tones. Musculoskeletal: Unremarkable. Normal range of motion, no swollen or erythematous joints Extremities: No edema, no cyanosis, no clubbing. Skin: No rashes. Warm and dry, no erythematous areas Neurological: Grossly neurologically intact, has generalized weakness, Normal Speech, Sensation Intact Lymphatic: Lymph nodes Cervical and Axillary not palpable. Lab and Diagnostics Labs Laboratory Tests Test 12/24/16 17:45 12/24/16 18:30 12/24/16 18:57 White Blood Count 7.2th/mm3 (3.8-10.1) Red Blood Count 2.88mil/mm3 (3.90-5.20) Hemoglobin 9.7g/dL (12.0-15.6) 9.1g/dL (12.0-15.6) Hematocrit 28.8% (35.0-46.0) 27.9% (35.0-46.0) Mean Corpuscular Volume 100.0fL (81-100) Mean Corpuscular Hemoglobin 33.7pg (27.0-35.0) Mean Corpuscular Hemoglobin Concent 33.7% (32.0-37.0) Red Cell Distribution Width 13.4% (12.3-15.4) Platelet Count 310bil/L (150-400) Neutrophils (%) (Auto) 76.9% (40-74) Lymphocytes (%) (Auto) 16.9% (14-46) Monocytes (%) (Auto) 4.6% (4-12) Eosinophils (%) (Auto) 0.8% (0-5) Basophils (%) (Auto) 0.1% (0-3) D-Dimer 0.8mg/L (<0.50) Sodium Level 127mEq/L (134-144) Potassium Level 5.0mEq/L (3.5-5.2) Chloride Level 94mEq/L (97-108) Carbon Dioxide Level 18mmol/L (18-29) Blood Urea Nitrogen 44mg/dL (8-27) Creatinine 2.05mg/dL (0.57-1.00) Estimat Glomerular Filtration Rate 34mL/min (>59) Glucose Level 76mg/dL (60-99) Lactic Acid Level 0.8mmol/L (0.4-2.0) Calcium Level 8.6mg/dL (8.5-10.1) Total Bilirubin 0.4mg/dL (0.0-1.2) Aspartate Amino Transf (AST/SGOT) 20U/L (0-50) Alanine Aminotransferase (ALT/SGPT) 11U/L (0-32) Alkaline Phosphatase 68U/L (25-165) Troponin T 0.029ug/L (0.0-0.011) Pro-B-Type Natriuretic Peptide 3610pg/mL (0-301) Total Protein 7.1g/dL (6.4-8.4) Albumin 3.5g/dL (3.4-5.0) Hold Mortensen Top Tube Received (Received) Urine Color Yellow (YELLOW) Urine Appearance Clear (CLEAR,HAZY) Urine pH 5.5 (5.0-8.0) Urine Specific [place] 1.010 (1.003-1.035) Urine Protein Negativemg/dL (NEG,TRACE) Urine Glucose (UA) Negativemg/dL (NEGATIVE) Urine Ketones Negativemg/dL (NEGATIVE) Urine Occult Blood Trace (NEGATIVE) Urine Nitrite Negative (NEGATIVE) Urine Bilirubin Negative (NEGATIVE) Urine Urobilinogen Normalmg/dL (NORMAL) Urine Leukocyte Esterase Small (NEGATIVE) Urine RBC 0-2/hpf (0-2) Urine WBC 6-10/hpf (0-5) Urine Epithelial Cells Few/hpf (NONE-MOD) Urine Crystals None seen (NONE SEEN) Urine Bacteria Few/hpf (NONE-FEW) Urine Hyaline Casts None/lpf (NONE) Urine Granular Casts None seen (NONE SEEN) Urine Waxy Casts None seen (NONE SEEN) Urine Red Blood Cell Casts None seen (NONE SEEN) Urine White Blood Cell Casts None seen (NONE SEEN) Urine Mucus None seen (None Seen) Urine Trichomonas None seen (NONE SEEN) Urine Yeast None (NONE SEEN) Urinalysis Comment None Urine Culture Reflexed Indicated Microbiology 12/24/16 Blood Culture, Received Pending 12/24/16 Urine Culture, Received Pending Result Diagram: 12/24/16 1830 12/24/16 1745 X-Rays, CTs and MRIs X-RAY CHEST ONE VIEW, PORTABLE 12/24 IMPRESSION: No acute pulmonary process. Dictated by: Megan Kendrick M.D. on 12/24/2016 at 17:42 Approved by: Megan Kendrick M.D. on 12/24/2016 at 17:43 Cardiac Echo Impressions Echo 12/24/16 Interpretation Summary The left ventricle is normal in size. Left ventricular systolic function is normal. The ejection fraction is estimated to be 65-70%. The right ventricle is normal in size and function. No other echocardiographic abnormalities seen. The LV looks somewhat volumn depleted and the IVC suggests low filling pressures. Consider volumn depletion as a cause of the patients hypotension. No obvious pacemaker causes for the patients hypotension noted. Reading Physician:06:48 PM Assessment & Plan Camila Sharpe is a 71 year old female with Diabetes, hypertension, anemia, stroke and stress-induced cardiomyopathy s/p pacemaker placement presents to [facility] emergency department via EMS with hypotension. 1. Acute Hypotension. Present on admission Etiology unclear but suspect Hypovolemia (due to Diarrhea) given improvement with IV fluids. Differential diagnosis includes Pulmonary embolism (D dimer elevated). No bleeding noted although she had a slight drop in Hgb. - continue IV fluids resuscitations - monitor close for signs of fluid overload - consider adding pressors if fluids ineffective - treat underlying cause - holding all diuretics and antihypertensive medications - Leg ultrasound - consider VQ scan in the morning 2. E coli Urinary tract infection. Present on admission Patient prescribed Keflex from the emergency department. No clinical signs of pyelonephritis - follow Urine culture sensitivity - continue Ceftriaxone IV 3. Elevated troponin. Present on admission Due to demand ischemia (due to hypotension) or related to recent pacemaker placement. Risk factors for NSTEMI - echo showed no wall motion abnormalities - trending troponin overnight 4. Hyponatremia. Present on admission Likely due to dehydration and hypovolemia. Extra renal salt loss due to diarrhea. - monitor while on IV fluids 5. Acute kidney injury on chronic kidney disease stage 3. Present on admission - avoid nephrotoxic insults including contrast - monitor urine output - Nephrology consult if no improvement by tomorrow 6. Stress induced cardiomyopathy. - No clinical evidence of fluid overload but the opposite - holding diuretics and antihypertensive 7. Sick sinus syndrome s/p Replacement of pacemaker on 12/14/16. - echo showed no complications - pacemaker seems to be working properly 8. Hyperlipidemia, controlled - Continue atorvastatin 40 mg daily at bedtime. 9. Diabetes mellitus type II, diet controlled. - Low dose correctional scale Lispro 10 Hypothyroidism, chronic, controlled. - Continue levothyroxine 100 g daily. - Acetaminophen as needed for mild pain/fever/headache - Bowel regimen as needed - Antiemetic as needed Patient admitted under inpatient status with expected length of stay > 2 midnights for severity of present symptoms, complexities of treatment plan and risk for adverse event . Resuscitation Status: CPR: Attempt Resuscitation Wiley Diaz MD Dec 24, 2016 20:22
[2016-12-25] VITALS: BP 112/52; PULSE 60; RESP 20; O2SAT 99
[2016-12-25] MEDS: Heparin 5,000 Unit/mL Inj SUBQ SCH ×3 (00:15→17:06)
[2016-12-25 04:03] LABS: BASOPHILS % (AUTO) 0.2 % (0-3); EOSINOPHILS % (AUTO) 0.8 % (0-5); MONOCYTES % (AUTO) 5.9 % (4-12); Mean Corpuscular Hemoglobin 32.7 pg (27.0-35.0); Mean Corpuscular Volume 99.6 fL (81-100); NEUTROPHILS % (AUTO) 75.5 % (40-74); Platelet Count 248 bil/L (150-400)
[2016-12-25 04:40] VITALS: BP 130/80; PULSE 61; RESP 18; O2SAT 100
--- NOTE | 2016-12-25 06:03 | NUR ---
Mentation/Hemodynamics/Pain 2109 - Patient admitted to room 2015/CCU status, awake and alert when arrived on the unit, JIM 110's/50's, no distress noted, NS infusing at 100ml/hr, HR 100% AV paced, no distress noted. 0000 - Patient BS was 59, MD notifed and cardiac diet started, patient drank 8oz cranberry juice and BS increased to 67 and then 70, drank another 8oz and BS, had some nausea after drinking the juice and vomited about 250ml liquid emesis, BS remained stable for AM labs, had some slight upper abd pain and was gone after vomiting, c/o left and right shoulder pain 4/10, denied need for pain meds and patient stated she would call if pain level increased. 0600 - Resting in bed and c/o slight nausea but not feeling like she will vomit at this time, right neck and shoulder pain 4/10 but denied pain meds at this time, will continue to monitor, no distress noted. Addendum: 12/25/16 at 0615 by JAMIL KRISHNA RN Amended: Links added. Addendum: 12/25/16 at 0618 by JAMIL KRISHNA RN 0615 - BP has been stable this shift, increased to 180's/60's when patient was nauseated and SBP decreased to the 120's after vomiting, BP stable this AM and no need for pressors this shift, BP 157/56 at this time.
[2016-12-25] MEDS: 0.9% Sodium Chloride 1,000 ML IV SCH ×2 (07:00→17:06)
[2016-12-25 07:53] VITALS: BP 118/47; PULSE 58; RESP 20; O2SAT 99
[2016-12-25] MEDS: cefTRIAXone Inj 2,000 MG in Dextrose 5% Minibag Plus 50 ML IV SCH (08:08)
[2016-12-25] MEDS: HYDROcodone-APAP 5-325 mg Tablet PO PRN ×2 (08:10→21:46)
[2016-12-25] MEDS ORDERED: HYDROcodone-APAP 5-325 mg Tablet PO PRN (08:15)
--- NOTE | 2016-12-25 09:26 | DRSVH ---
PROCEDURE: US VENOUS LEG DUPLEX BILATERAL INDICATIONS: ro DVT, hypotensive (renal failure) TECHNIQUE: Real-time imaging, as well as color and pulse Doppler interrogation, were performed of the deep veins of both legs from the inguinal ligament to the popliteal fossa. COMPARISON: [facility], US, US VENOUS LEG DPLX BILAT, 06/15/2016, 21:20. FINDINGS: The deep veins are normally compressible, and free of intraluminal thrombus. Color and pu lse Doppler demonstrate normal phasic intravascular flow. There is normal augmentation response to d istal compression maneuver. IMPRESSION: No deep venous thrombosis identified within either the left or right lower extremities. Dictated by: Tio GALAN Interpreted: Megan Kendrick MD on 12/25/2016 at 9:25 Transcribed by: ROSALINA on 12/25/2016 at 9:26 Approved by: Megan Kendrick M.D. on 12/27/2016 at 16:16
[2016-12-25] MEDS: PARoxetine 20 mg Tablet PO SCH (10:18)
[2016-12-25] MEDS: MeTOProlol XL 50 mg ER24 Tablet PO SCH ×2 (10:18→21:37)
--- NOTE | 2016-12-25 11:02 | NUR ---
A&O, reports 7/10 left leg pain (as is chronic), medicated with [place] 1 tablet with adequate relief. VSS with SBP 130's. Metoprolol started as ordered, delayed lisinopril to allow time to assess tolerance, plan to administer ~noon. Afebrile. No N/V, ate 100% breakfast. Pierson catheter discontinued. No diarrhea, brown formed stool x1. [place] [facility] [place], non weight bearing left leg. Care downgraded to medical non tele. here for brief visit. Valuables in safe including [place], pt reports missing 500.00$ prior to arrival to hospital.
--- NOTE | 2016-12-25 11:39 | PCM.PNMED ---
Subjective Date of Service Dec 25, 2016 Subjective Patient is doing well. She has some dysuria. But no fevers chills or flank pain. No difficulty with chest pain cough or shortness of breath. No nausea or diarrhea. Exam Vital Signs Vital Sign - Last Date Time Temp Pulse Resp B/P Pulse Ox O2 Delivery O2 Flow Rate FiO2 12/25/16 07:53 37.0 58 20 118/47 99 Room Air Intake and Output 12/24/16 12/24/16 12/25/16 Cumulative From/Thru 15:00 23:00 07:00 12/24/16 20:38 - 12/25/16 04:54 Intake Total 1500 ml 1237 ml 2737 ml Output Total 2550 ml 2550 ml Balance 1500 ml -1313 ml 187 ml Intake Oral 480 ml 480 ml IV Total 1500 ml 757 ml 2257 ml Output Urine Total 2300 ml 2300 ml Emesis 250 ml 250 ml # Bowel Movements 0 0 Exam She is alert and oriented 3, fluent speech. No distress. Anicteric sclera Lungs are clear with normal effort and rate. Heart is regular without murmur gallop or rub. Abdomen soft nontender. Extremities are free of edema with good pedal pulses. IVs and Medications Medications Reviewed: Medications were reviewed in detail Lab and Diagnostics Result Diagram: 12/25/16 0230 12/25/16 0230 X-Rays, CTs and MRIs X-RAY CHEST ONE VIEW, PORTABLE 12/24 IMPRESSION: No acute pulmonary process. Dictated by: Megan Kendrick M.D. on 12/24/2016 at 17:42 Approved by: Megan Kendrick M.D. on 12/24/2016 at 17:43 Cardiac Echo Impressions Echo 12/24/16 Interpretation Summary The left ventricle is normal in size. Left ventricular systolic function is normal. The ejection fraction is estimated to be 65-70%. The right ventricle is normal in size and function. No other echocardiographic abnormalities seen. The LV looks somewhat volumn depleted and the IVC suggests low filling pressures. Consider volumn depletion as a cause of the patients hypotension. No obvious pacemaker causes for the patients hypotension noted. Reading Physician:06:48 PM Assessment & Plan Camila Sharpe is a 71 year old female with Diabetes, hypertension, anemia, stroke and stress-induced cardiomyopathy s/p pacemaker placement presents to [facility] emergency department via EMS with hypotension. 1. Acute Hypotension. Present on admission Etiology unclear but suspect Hypovolemia (due to Diarrhea) given improvement with IV fluids. Differential diagnosis includes Pulmonary embolism (D dimer elevated). No bleeding noted although she had a slight drop in Hgb. - This is resolved with fluid resuscitation. 2. E coli Urinary tract infection (pyelonephritis). Present on admission Patient prescribed Keflex from the emergency department. No clinical signs of pyelonephritis - follow Urine culture sensitivity - continue Ceftriaxone IV, infectious disease will consult. 3. Elevated troponin. Present on admission Due to demand ischemia (due to hypotension) or related to recent pacemaker placement. Risk factors for NSTEMI - echo showed no wall motion abnormalities - trending troponin overnight. No change this overall plan. 4. Hyponatremia. Present on admission. Improving with saline repletion. Consistent with hypovolemic hyponatremia. Likely due to dehydration and hypovolemia. Extra renal salt loss due to diarrhea. - monitor while on IV fluids 5. Acute kidney injury on chronic kidney disease stage 3. Present on admission - avoid nephrotoxic insults including contrast - monitor urine output -This is improving with fluids. Likely prerenal. We will continue to treat with IV fluids and follow clinically. 6. Sick sinus syndrome s/p Replacement of pacemaker on 12/14/16. - echo showed no complications - pacemaker seems to be working properly 7. Hyperlipidemia, controlled - Continue atorvastatin 40 mg daily at bedtime. 8. Diabetes mellitus type II, diet controlled. - Low dose correctional scale Lispro. This is well controlled. 9 Hypothyroidism, chronic, controlled. - Continue levothyroxine 100 g daily. - Acetaminophen as needed for mild pain/fever/headache - Bowel regimen as needed - Antiemetic as needed Patient admitted under inpatient status with expected length of stay > 2 midnights for severity of present symptoms, complexities of treatment plan and risk for adverse event Anticipate probable discharge tomorrow, December 26 on oral antibiotics pending sensitivities on urine culture. . Pain Evaluation: Adequate Pain Control VTE Mechanical Devices: Intermittant Pneumatic CD Resuscitation Status: CPR: Attempt Resuscitation Time spent 35 minutes Nael Jin MD Dec 25, 2016 11:39
[2016-12-25] MEDS: Fluticasone 250 mCg Inhaler INHALATION SCH ×2 (12:38→21:37)
--- NOTE | 2016-12-25 13:57 | NUR ---
spiritual care: pt request conversational visit. pt reported on her medical condition, pacemaker placemnt and healing process for broken femur. Pt also reflected on her conversion from [employer]th day m[employer]on to orthodoxy, fairly recently. Pt agreeable for visit/contact from [facility] visitor and spiritual care follow up. pt awaiting medical news and plan.
[2016-12-25 15:57] VITALS: BP 116/55; PULSE 58; RESP 18; O2SAT 97
[2016-12-25 20:30] VITALS: BP 120/56; PULSE 60; RESP 20; O2SAT 98
--- NOTE | 2016-12-25 22:19 | NUR ---
Admit note: Pt arrived to 2013 room per cart from ED at 2044. Pt was awake and alert lifted over to bed and made comfortable. Pt stated she needs to have a bowel movement refused bedpan. Daughter at bedside became very aggressive and confrontational getting in RN's face stated that her mother is not going to use a bedpan. Condition and situation was explained that pt is her for low BP and getting her up to commode is not possible at that time and we needed to assess how she responded to medication. Daughter requested to talk to the charge nurse. Arik was paged and talked with daughter. Dopamine was started and O2 was placed on at 2L/M for spo2 of 90%. Addendum: 12/25/16 at 2307 by IRINEO MATT RN above note entered on wrong pt
--- NOTE | 2016-12-25 23:28 | CONS ---
[address] [address] CONSULTATION REPORT PATIENT: RADHA LITTLE : 1945 MR#: [id number] ADMIT: 12/24/2016 JOB ID: [id number] DATE OF SERVICE: 12/25/[address] Morales for this timely consult. REASON FOR CONSULTATION: Hypotensive with pyuria. HISTORY OF PRESENT ILLNESS: The patient is a complex woman who is well known to me from an admission about one year ago. At that time, she was admitted with possible infection and a single blood culture grew MRSA. 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 There was also concern about osteomyelitis in the coccyx and so the decision to complete the six weeks of vancomycin was taken and we did successfully complete the six weeks of intravenous antibiotics. That hospital course was complicated by a very flagrant psychosis which made many aspects of her care quite difficult. Subsequent to that long hospital stay, the patient was admitted to [facility] in [place] and she reports that she has been there ever since. The patient's sacral pressure ulcer that had been a problem for her about a year ago gradually improved and by this summer it has largely resolved. In May of this year, the patient had a brief admission for what was felt to be a urinary tract infection. At that time, she had pyuria and grew an E. coli from her urine which was treated and she improved and was subsequently discharged. The patient also had an admission in November of this year for stress-induced cardiomyopathy. She was readmitted to this facility late last night after she presented with nausea, vomiting, diarrhea, weakness and poor oral intake. The patient was found to be hypotensive in the emergency department. When she was being evaluated for various GI symptoms and was also noted at that time to have another possible urinary tract infection. She was subsequently admitted to the hospital for evaluation of her hypotension and GI complaints. The patient tells me today that in addition to her recent diarrhea, which has now resolved, she has had persistent nausea and vomiting. She also notes that she has had some headaches, some chills without fever and an occasional cough without shortness of breath. She denies today that she has had any dysuria, urgency, or frequency though she does have a long history of recurrent urinary tract infections. At this point, following vigorous fluid hydration, the patient reports she is essentially back to her baseline level of health PAST MEDICAL HISTORY: 1. Diabetes mellitus. 2. Hyperlipidemia. 3. Hypertension. 4. History of cerebrovascular accident. 5. 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 b. 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 6. GERD. 7. Hypothyroidism. 8. Chronic renal insufficiency. 9. Bipolar disorder with periods of flagrant psychosis. 10. History of depression. 11. Chronic pain with opiate habituation. 12. Femur and left hip fracture. The femur fracture occurred in September 2016 and she is still wearing a brace for that. 13. History of multiple UTIs. 14. History of C. diff July 2015. 15. History of MRSA bacteremia one year ago which was thought to be possibly associated with MRSA endocarditis. 16. History of sacral decubitus ulcer. 17. Status post left hip replacement multiple times. 18. Status post hysterectomy and bilateral salpingo-oophorectomy. 19. Status post cholecystectomy. SOCIAL HISTORY: The patient lives at a longterm facility. She does not drink nor smoke. FAMILY HISTORY: No history of tuberculosis in 1st degree relatives. REVIEW OF SYSTEMS: Was done. As it was when I re-interviewed this patient a year ago when we thought she had MRSA endocarditis, her review of systems was largely positive and it is hard to know exactly what that means. She said she has ongoing headaches. She does deny any change in vision. She said she occasionally has sore throat. She says she has both odynophagia and dysphagia as well as some neck pain. She notes she has a chronic dry cough and is occasionally short of breath. Recently, she says she has had both protracted nausea and vomiting as well as diarrhea though these are all better today. She has pain in the back as well as pain in the lower extremities, especially the left lower extremity where she had the femur fracture in September. She denies any new skin rash and denies edema of the lower extremities. The review of systems overall was inconsistent and the rest of the review of systems was basically noncontributory or negative. PHYSICAL EXAMINATION: Reveals a tearful woman who is less psychotic than when I last saw her a year ago when she was really flagrantly psychotic. She is able to answer questions and provide some good history today and seems to be functioning at a much higher social level than she was during her admission here. She has been afebrile since this admission and, in fact, she was also afebrile during her most recent admission last month. Current temp is 36.7. Pulse is around 60. Respiratory rate 18. Blood pressure 116/55. Note that she was quite hypotensive yesterday in the ED down to 75/49, but got better with fluid boluses. She is saturating 97% on room air. The patient is noted to be awake and alert and able to give some history today. Examination of the head reveals no evidence of trauma. The eyes are notable for some conjunctival pallor, otherwise normal and no scleral icterus. Nose is normal. Oral cavity: No thrush, hairy leukoplakia or pharyngitis. Neck is quite supple. There is some shotty anterior cervical adenopathy bilaterally without notable mass. The neck has full range of motion. Lungs: Fairly clear anteriorly and posteriorly. Cardiac tones are regular rate and rhythm. Pacer is present in the right upper chest and it is nontender. The patient's abdomen is soft and nontender without organomegaly or ascites. She does have a Pierson catheter. No suprapubic fullness is noted. Her left lower extremity is in a large knee immobilizer which I did not remove. She states she has been wearing this since her September femur fracture, but it is due to come off within the next week or so. The right lower extremity is without evidence of cellulitis or significant edema. There are no abnormalities of the knee or ankle noted and, as mentioned, no peripheral edema. The patient can move all of her extremities though obviously has trouble with the left lower extremity as it is in the large immobilizer. She has no evidence for skin rash. LABORATORIES: Include a white count of 6000, hematocrit 27, platelet count 248. She has a basically normal differential on the white count. Creatinine is 1.77 which is roughly her baseline. Her liver function tests are normal. Albumin is 3.5. Urinalysis showed 6-10 white cells. Note that she was seen in the ED back on December 23, however, and at that time she had over 50 white cells in her urine. QuantiFERON Gold done several months ago during a prior visit was negative. Going back to her micro cultures, as noted a year ago she had the single positive blood culture for MRSA. Subsequent to that, we have many negative blood cultures. In December 2015, she had Klebsiella in the urine. In May 2016, E. coli in the urine. On December 12, a MRSA screen of the nares was done and this was positive. On December 23 when she came to the ED and had over 50 white cells in her urine, she had a culture which grew Citrobacter. That Citrobacter is moderately resistant and is resistant to first generation cephalosporins as well as second-generation cephalosporins, and tetracyclines but otherwise quite susceptible. The chest x-ray shows no infiltrate. Venous Doppler of the lower extremities shows no DVT. 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 We also were concerned at that time about coccygeal osteomyelitis and so we treated her aggressively for six weeks with IV vancomycin which she tolerated fairly well. Since then, she has had a number of ED visits and admissions which have centered around urinary tract infections. It is worth noting and going back to her laboratories that she basically has minimal pyuria with usually an intermediate number of white cells. On December 23, she was evaluated in the ED and was found to have a heavy pyuria and a urine culture grew Citrobacter. The patient is a somewhat scattered historian given her history of psychosis, but she denies any ongoing urinary symptoms and states that her main problem lately has been the nausea, vomiting and diarrhea, all of which seem to have improved. In any event, she was re-evaluated at the ED late on December 24 and was admitted because of hypotension which appears to have been on the basis of hypovolemia. I do not think that the patient was suffering septic shock from a complicated urinary tract infection. The nature of her gastrointestinal symptoms remains unclear as there is no stool sample available to do PCR or other testing on it as her diarrhea seems to have now resolved. RECOMMENDATIONS: 1. I think it is reasonable to continue with ceftriaxone for a little bit longer, perhaps through tomorrow. 2. I think as the patient continues to improve, she can be readied for discharge and multiple oral antibiotics would be appropriate here, though I think the simplest thing to do would be to provide the patient with a single dose of fosfomycin and simply to clear her UTI adequately treated. 3. Again, there is no absolute proof that she has any UTI as she denies urgency or frequency and she is known to have pyuria basically at every visit, but I do think it is prudent to go ahead and treat this probable UTI situation given the heavy pyuria noted at this time as well as positive culture. Thank you very much. I will be seeing this patient again tomorrow. RASHI
[2016-12-26 00:45] VITALS: BP 111/55; PULSE 60; RESP 20; O2SAT 96
[2016-12-26] MEDS: Heparin 5,000 Unit/mL Inj SUBQ SCH ×2 (01:06→08:36)
[2016-12-26] MEDS: 0.9% Sodium Chloride 1,000 ML IV SCH ×2 (03:21→12:11)
[2016-12-26 03:58] VITALS: BP 124/66; PULSE 60; RESP 20; O2SAT 97
--- NOTE | 2016-12-26 04:20 | NUR ---
Activity/intake: Pt is able to transfer self with standby assistance and 4 wheel walker. Pt is able to turn self in bed with assistance of placing pillow behind back. Pt has hx of stage 4 sacral pressure to scarum that was healed may 2016. sacrum is reddened and blanchable. Pt stated that she wears a neck brace when she eats but forgot it at home. Old med recs does not mention any swallowing problems except a CVA in february of 2012. pt does take pills well.
[2016-12-26 08:00] VITALS: BP 133/69; PULSE 63; RESP 14; O2SAT 97
[2016-12-26] MEDS: Fluticasone 250 mCg Inhaler INHALATION SCH (08:33)
[2016-12-26] MEDS: PARoxetine 20 mg Tablet PO SCH (08:34)
[2016-12-26] MEDS: MeTOProlol XL 50 mg ER24 Tablet PO SCH (08:34)
[2016-12-26] MEDS: HYDROcodone-APAP 5-325 mg Tablet PO PRN (08:41)
[2016-12-26] MEDS: cefTRIAXone Inj 2,000 MG in Dextrose 5% Minibag Plus 50 ML IV SCH (08:42)
--- NOTE | 2016-12-26 09:00 | PROG NOTE ---
[address] [address] PROGRESS NOTE PATIENT: RADHA LITTLE : 1945 MR#: [id number] ADMIT: 12/24/2016 JOB ID: [id number] DATE: 12/26/2016 INFECTIOUS DISEASE FOLLOW UP NOTE: REASON FOR FOLLOWUP: Complicated urinary tract infection in a patient with multiple underlying medical problems. INTERVAL HISTORY: Today, the patient is awake, alert, in no acute distress. She denies any fevers, chills or sweats. She has no significant cough or respiratory difficulty. No abdominal pain. No nausea, no vomiting, and no significant urinary symptoms either. PHYSICAL EXAMINATION: Reveals a comfortable woman lying supine in her ICU bed. Current temperature is 36.6. She has been afebrile since her admission two days ago. Pulse 60, respiratory rate 20, blood pressure 124/66. She is saturating well on room air. The patient's mood seems normal. She continues to have a bit of an odd affect which has been noted previously during prior admissions. When I have encountered this patient, she has been wildly psychotic but today she is quite oriented, put together and able to give an appropriate history. Her oral examination is unremarkable. Her lungs relatively clear bilaterally. Cardiac tones with a 2/6 murmur heard best along the left lower sternal border. This is a fairly harsh systolic murmur. The abdomen is soft and nontender without organomegaly or appreciable ascites. No Pierson catheter is present. There is no suprapubic tenderness. LABORATORIES: Include white count of 6000 yesterday, not repeated today. Creatinine 1.77. Urinalysis had 6-10 white cells. Urine culture has been negative. MRSA screen negative. Blood cultures negative. Recall that the chest x-ray from two days ago was clear. IMPRESSION: This has always been a difficult patient in that she has multiple underlying problems including diabetes, severe bipolar disorder, cardiac disease and a recent femur fracture secondary to fall. At this point, I see little evidence of any ongoing infection. She did have a urine from the ER on December 23 which had heavy pyuria and grew Citrobacter but she had little in the way of symptoms and her follow up urinalysis and culture here in the hospital is quite reassuring. At this point, I think we can conclude her UTI therapy with a dose of fosfomycin and the patient will be cleared from an Infectious Disease point of view for upcoming discharge. RECOMMENDATIONS: 1. Will go ahead and give her this morning's dose of ceftriaxone and then stop it and I have written the orders to stop the ceftriaxone. 2. Will give her a single dose of fosfomycin today which will continue her UTI therapy for about three days or so. 3. Following today's antibiotics, I see no indication for any additional antibiotics at this time. 4. ID will go ahead and sign off on this patient.
--- NOTE | 2016-12-26 11:01 | PCM.DIMED ---
Discharge Instructions Date of Service Dec 26, 2016 Dates of Hospitalization Dec 24, 2016 at 19:56 Discharge Diagnosis Discharge Diagnosis Hypotension due to dehydration Diet Other (as tolerated,pending swallow eval today by speech therapy today) Activity Other (progress as tolerated) Call your provider Fever or Chills, Shortness of breath, Bleeding, Chest pain, Vomitting, Excessive diarrhea, Weakness (unilateral) Patient Instructions Follow-up with PCP in: 1 week Lynn Thurman MD Dec 26, 2016 11:01
--- NOTE | 2016-12-26 11:05 | PCM.DC.MED ---
Discharge Summary Date of Service Dec 26, 2016 Dates of Hospitalization Date of Hospital Admission Dec 24, 2016 at 19:56 Date of Discharge: Dec 26, 2016 Providers: Admitting Physician: Wiley Diaz MD Primary Care Physician: Nael Jin MD Attending Physician: Wiley Diaz MD Diagnosis at Time of Discharge Diagnosis at Time of Discharge Hypotension due to dehydration Procedures XRay, CTs & MRIs X-RAY CHEST ONE VIEW, PORTABLE 12/24 IMPRESSION: No acute pulmonary process. Dictated by: eMgan Kendrick M.D. on 12/24/2016 at 17:42 Approved by: Megan Kendrick M.D. on 12/24/2016 at 17:43 Cardiac Echo Impression Echo 12/24/16 Interpretation Summary The left ventricle is normal in size. Left ventricular systolic function is normal. The ejection fraction is estimated to be 65-70%. The right ventricle is normal in size and function. No other echocardiographic abnormalities seen. The LV looks somewhat volumn depleted and the IVC suggests low filling pressures. Consider volumn depletion as a cause of the patients hypotension. No obvious pacemaker causes for the patients hypotension noted. Reading Physician:06:48 PM Brief History Camila Sharpe is a 71 year old female with Diabetes, hypertension, anemia, stroke and stress-induced cardiomyopathy s/p pacemaker placement presents to [facility] emergency department via EMS with hypotension. The patient also reports nausea onset three days ago, chills, and reflux chest pain since lunch this afternoon. She denies fever. She reports having diffuse diarrhea in the last few days associated with decreased PO intake. EMS found the patient with a BP of 78/56. She was in the Emergency department yesterday with sciatica and a UTI. She had Ceftriaxone IV and then discharge with Keflex PO Her pacemaker was recently replaced on 12/13/16. Case discussed with Dr Deutsch, patient did not respond initially to IV fluids but then SBP rise to 90. PICC line placed Hospital Course Camila Sharpe is a 71 year old female with Diabetes, hypertension, anemia, stroke and stress-induced cardiomyopathy s/p pacemaker placement presents to [facility] emergency department via EMS with hypotension. 1. Acute Hypotension. Present on admission Etiology unclear but suspect Hypovolemia (due to Diarrhea) given improvement with IV fluids. Differential diagnosis includes Pulmonary embolism (D dimer elevated). No bleeding noted although she had a slight drop in Hgb. - This is resolved with fluid resuscitation. 2. E coli Urinary tract infection (pyelonephritis). Present on admission Patient prescribed Keflex from the emergency department. No clinical signs of pyelonephritis - follow Urine culture sensitivity - continue Ceftriaxone IV, infectious disease will consult. 3. Elevated troponin. Present on admission Due to demand ischemia (due to hypotension) or related to recent pacemaker placement. Risk factors for NSTEMI - echo showed no wall motion abnormalities - trending troponin overnight. No change this overall plan. 4. Hyponatremia. Present on admission. Improving with saline repletion. Consistent with hypovolemic hyponatremia. Likely due to dehydration and hypovolemia. Extra renal salt loss due to diarrhea. - monitor while on IV fluids 5. Acute kidney injury on chronic kidney disease stage 3. Present on admission - avoid nephrotoxic insults including contrast - monitor urine output -This is improving with fluids. Likely prerenal. We will continue to treat with IV fluids and follow clinically. 6. Sick sinus syndrome s/p Replacement of pacemaker on 12/14/16. - echo showed no complications - pacemaker seems to be working properly 7. Hyperlipidemia, controlled - Continue atorvastatin 40 mg daily at bedtime. 8. Diabetes mellitus type II, diet controlled. - Low dose correctional scale Lispro. This is well controlled. 9 Hypothyroidism, chronic, controlled. - Continue levothyroxine 100 g daily. - Acetaminophen as needed for mild pain/fever/headache - Bowel regimen as needed - Antiemetic as needed Patient admitted under inpatient status with expected length of stay > 2 midnights for severity of present symptoms, complexities of treatment plan and risk for adverse event Anticipate probable discharge tomorrowDecember 26 on oral antibiotics pending sensitivities on urine culture. . Exam Vital Signs (Last) Date Time Temp Pulse Resp B/P Pulse Ox O2 Delivery O2 Flow Rate FiO2 12/26/16 08:00 36.9 63 14 133/69 97 Room Air Test 12/24/16 17:45 12/24/16 18:57 12/25/16 02:30 12/25/16 10:50 D-Dimer 0.8mg/L (<0.50) Lactic Acid Level 0.8mmol/L (0.4-2.0) Total Bilirubin 0.4mg/dL (0.0-1.2) Aspartate Amino Transf (AST/SGOT) 20U/L (0-50) Alanine Aminotransferase (ALT/SGPT) 11U/L (0-32) Alkaline Phosphatase 68U/L (25-165) Pro-B-Type Natriuretic Peptide 3610pg/mL (0-301) Total Protein 7.1g/dL (6.4-8.4) Albumin 3.5g/dL (3.4-5.0) Hold Mortensen Top Tube Received (Received) Urine Color Yellow (YELLOW) Urine Appearance Clear (CLEAR,HAZY) Urine pH 5.5 (5.0-8.0) Urine Specific [place] 1.010 (1.003-1.035) Urine Protein Negativemg/dL (NEG,TRACE) Urine Glucose (UA) Negativemg/dL (NEGATIVE) Urine Ketones Negativemg/dL (NEGATIVE) Urine Occult Blood Trace (NEGATIVE) Urine Nitrite Negative (NEGATIVE) Urine Bilirubin Negative (NEGATIVE) Urine Urobilinogen Normalmg/dL (NORMAL) Urine Leukocyte Esterase Small (NEGATIVE) Urine RBC 0-2/hpf (0-2) Urine WBC 6-10/hpf (0-5) Urine Epithelial Cells Few/hpf (NONE-MOD) Urine Crystals None seen (NONE SEEN) Urine Bacteria Few/hpf (NONE-FEW) Urine Hyaline Casts None/lpf (NONE) Urine Granular Casts None seen (NONE SEEN) Urine Waxy Casts None seen (NONE SEEN) Urine Red Blood Cell Casts None seen (NONE SEEN) Urine White Blood Cell Casts None seen (NONE SEEN) Urine Mucus None seen (None Seen) Urine Trichomonas None seen (NONE SEEN) Urine Yeast None (NONE SEEN) Urinalysis Comment None Urine Culture Reflexed Indicated White Blood Count 6.0th/mm3 (3.8-10.1) Red Blood Count 2.78mil/mm3 (3.90-5.20) Hemoglobin 9.1g/dL (12.0-15.6) Hematocrit 27.7% (35.0-46.0) Mean Corpuscular Volume 99.6fL (81-100) Mean Corpuscular Hemoglobin 32.7pg (27.0-35.0) Mean Corpuscular Hemoglobin Concent 32.9% (32.0-37.0) Red Cell Distribution Width 13.3% (12.3-15.4) Platelet Count 248bil/L (150-400) Neutrophils (%) (Auto) 75.5% (40-74) Lymphocytes (%) (Auto) 16.8% (14-46) Monocytes (%) (Auto) 5.9% (4-12) Eosinophils (%) (Auto) 0.8% (0-5) Basophils (%) (Auto) 0.2% (0-3) Sodium Level 137mEq/L (134-144) Potassium Level 3.9mEq/L (3.5-5.2) Chloride Level 103mEq/L (97-108) Carbon Dioxide Level 15mmol/L (18-29) Blood Urea Nitrogen 39mg/dL (8-27) Creatinine 1.77mg/dL (0.57-1.00) Estimat Glomerular Filtration Rate 41mL/min (>59) Glucose Level 103mg/dL (60-99) Calcium Level 8.4mg/dL (8.5-10.1) Troponin T 0.014ug/L (0.0-0.011) Discharge Medications Discharge Medications Acidophilus/Pectin, [place] (Acidophilus [place]) 1 Each Tablet 1 EACH PO QAM ( Reported) Aspirin Chew (Aspirin Chew) 81 Mg Chew 81 MG PO DAILY Prescribed by: DIMA CABELLO DO Cephalexin (Keflex) 500 Mg Capsule 500 MG PO QID Prescribed by: MISTI KAPLAN Cholecalciferol (Vitamin D3) (Vitamin D) 1,000 Unit Tablet 1,000 UNIT PO QAM ( Reported) Cyanocobalamin (Vitamin B-12) (Vitamin B-12) 1,000 Mcg Tablet 1,000 MCG PO QAM ( Reported) Dextran 70/Hypromellose/Pf (Artificial Tears Drops) 1 Each Droperette 1 DROP BOTH_EYES BID (Reported) Famotidine (Famotidine) 20 Mg Tablet 20 MG PO QAM (Reported) Fluticasone Propionate (Flovent Diskus) 250 Mcg Disk.w.dev 1 PUFF INHALATION BID (Reported) Glucosamine (Glucosamine) 500 Mg Tablet 500 MG PO BID (Reported) Levothyroxine (Levothyroxine) 100 Mcg Tablet 100 MCG PO QAM (Reported) Lisinopril (Lisinopril) 5 Mg Tablet 2.5 MG PO DAILY Prescribed by: DIMA CABELLO DO Melatonin/Pyridoxine (Melatonin 3 mg Tablet) 1 Each Tablet 1 EACH PO HS ( Reported) Metoprolol Succinate ER (Metoprolol Succinate ER) 50 Mg Tab.er.24h 50 MG PO BID Prescribed by: DIMA CABELLO DO Multivitamin (Once Daily) 1 Each Tablet 1 EACH PO QAM (Reported) Olanzapine (Olanzapine) 5 Mg Tablet 5 MG PO QPM (Reported) Oxybutynin Chloride ER (Oxybutynin Chloride ER) 10 Mg Tab.er.24 10 MG PO QPM ( Reported) Paroxetine (Paroxetine) 20 Mg Tablet 20 MG PO QPM (Reported) Terbinafine (Terbinafine) 250 Mg Tablet 250 MG PO BID (Reported) Tizanidine (Tizanidine) 4 Mg Tablet 4 MG PO TID (Reported) Trazodone (Trazodone) 50 Mg Tablet 25 MG PO HS (Reported) As needed Bisacodyl (Dulcolax) 5 Mg Tablet.dr 5 MG PO QAM PRN PRN For Constipation ( Reported) Docusate Sodium (Docusate Sodium) 250 Mg Capsule 250 MG PO QAM PRN PRN For Constipation (Reported) 30 DAY SUPPLY STARTED ON 12/19 Guaifenesin/Codeine Phosphate (Guaifen-Codeine 100-10 mg/5 ml) 120 Ml Liquid 10 ML PO Q4H PRN PRN For Cough (Reported) Hydrocodone-Acetaminophen 5-325 mg (Hydrocodone-Acetaminophen 5-325 mg) 1 Each Tablet 1-2 TABLET PO BID PRN PRN For Pain (Reported) Ondansetron (Ondansetron) 4 Mg Tablet 4 MG PO DAILY PRN PRN For Nausea/Vomiting (Reported) Polyethylene Glycol 3350 (Miralax) 17 Gm Powd.pack 17 GM PO QAM PRN PRN For Constipation (Reported) Sennosides (Senna) 8.6 Mg Tablet 17.2 MG PO QAM PRN PRN For Constipation ( Reported) Followup Plan Discharge Diet: Other (as tolerated,pending swallow eval today by speech therapy today) Discharge Activity: Other (progress as tolerated) Follow-up with PCP in: 1 week Lynn Thurman MD Dec 26, 2016 11:05
--- NOTE | 2016-12-26 12:03 | NUR ---
Social Work Note: Initial Assessment Data& Assessment: EMR reviewed. Per pt is medically ready for discharge. JORGE met with pt at bedside to confirm discharge plan and assess for any unmet needs. Camila Sharpe is a 71 year old female admitted on 12/24/2016 for hypotension, Ecoli UTI and renal insufficiencies. Per MD pt is medically improved and ready for discharge. Pt has Medicare and for Life supplemental insurance coverage. Pt sees Nael Jin MD for primary care. Pt lives at [facility] facility where she uses a walker (no wheels) at baseline. JORGE spoke with [facility] at [facility], Faxed discharge paperwork and confirmed pt is able to return to their facility today. Pt is currently open with [facility] and these services are being resumed. Tito from [facility] notified of pt discharge. Pt does not have LTC insurance or [facility]. Pt confirmed she has Advance Directive and DPOA paperwork completed, SW requested a copy when possible. Pt typically transports using [facility]. JORGE confirmed with [facility] that when pt is physically dressed and ready to be picked up, they will be able to transport her back to [facility]. Pt denies any other needs. No other discharge needs Identified. All updated and agreeable to plan. Plan: Per pt is medically ready to discharge home to [facility] via [facility] with [facility]. JORGE spoke with [facility] at [facility], and confirmed pt is able to return to their facility today. Pt denies any other needs. No other discharge needs Identified. All updated and agreeable to plan. ALBERT Shin Addendum: 12/26/16 at 1209 by XIANG ARIAS Amended: Links added.
--- NOTE | 2016-12-26 12:55 | NUR ---
Called [facility] and they will pick patient up at 1445, updated RN.
--- NOTE | 2016-12-26 13:21 | NUR ---
Evaluation completed. Please go to "Notes" then click on "Assessments and Notes" (bottom left corner of screen). Then select appropriate discipline tab on top of screen.
--- NOTE | 2016-12-26 14:45 | NUR ---
Discharge Pt D/Cd home in stable condition. Meds and instructions reviewed with patient. Belongings with pt. PIV D/Cd intact.
== END 2016-12-26 14:46 | disposition home health service (06) | DRG 315 ==
LOC: SED 16:43 → EDBD 16:43 → CCU 19:56 → PCC 12-25 08:17
PROVIDERS: ADMIT Hospitalist; ATTEND Hospitalist
DX: I95.9 Hypotension, unspecified (principal); N39.0 Urinary tract infection, site not specified; I24.8 Other forms of acute ischemic heart disease; E87.1 Hypo-osmolality and hyponatremia; N17.9 Acute kidney failure, unspecified; I69.354 Hemiplegia and hemiparesis following cerebral infarction affecting left non-dominant side; F11.20 Opioid dependence, uncomplicated; B96.20 Unspecified Escherichia coli [E. coli] as the cause of diseases classified elsewhere; N18.3 Chronic kidney disease, stage 3 (moderate); E78.5 Hyperlipidemia, unspecified; E03.9 Hypothyroidism, unspecified; E11.9 Type 2 diabetes mellitus without complications; I12.9 Hypertensive chronic kidney disease with stage 1 through stage 4 chronic kidney disease, or unspecified chronic kidney disease; K21.9 Gastro-esophageal reflux disease without esophagitis; Z95.0 Presence of cardiac pacemaker; G89.29 Other chronic pain; E86.1 Hypovolemia

== ENCOUNTER 2017-01-05 09:47 | Emergency (ER) | payer MEDICARE, OTHER ==
[~2017-01-05] VITALS: Ht 165.1 cm; Wt 79.5 kg
[~2017-01-05 09:47] MED LIST changes: -CEPH-512 PO; -DOXY100T2 PO; -MUPI22OI2 TOPICAL
[2017-01-05 10:09] VITALS: BP 62/40; PULSE 60; RESP 12; O2SAT 95
--- NOTE | 2017-01-05 10:20 | ED.REPORT ---
HPI-General Illness Date of Service Jan 05, 2017 ED Provider: Jerald Dinero MD 71 year old female with an extensive medical history who presents to the ER via EMS from [facility] due to hypertension. The nurse in the [facility] checked the pt's BP routinely this morning and noted that the patients BP was 200S. Her BP then decreased rapidly after her normal dose of Lisinopril and Metoprolol. Her BP continued to decrease en route and has been at 60S. Pt reports feeling lightheaded with mild SOB and CP, but is otherwise asymptomatic. Pt denies abd pain and nausea. Nursing Notes Stated Complaint: HIGH BLOOD PRESSURE Chief Complaint: General Complaint Nursing Notes Reviewed: Yes Allergies: Coded Allergies: TAPE (Verified Allergy, Severe, Sensitive Skin/Blisters ([place]& [place]) , 12/24/16) gabapentin (Verified Allergy, Severe, Edema, 12/24/16) meperidine (Verified Allergy, Severe, Seizures, 12/24/16) phenytoin (Verified Allergy, Severe, "I Turn Black", 12/24/16) ciprofloxacin (Verified Allergy, Intermediate, 12/24/16) Reported reaction from RN at [facility] deferasirox (Verified Allergy, Unknown, 12/24/16) latex (Verified Allergy, Unknown, 12/24/16) codeine (Verified Adverse Reaction, Mild, itching, 12/24/16) calcium (Verified Adverse Reaction, Unknown, CALCIUM CITRATE, 12/07/16) Uncoded Allergies: HAYFEVER (Allergy, Unknown, 07/16/16) STRAWBERRIES, (Allergy, Unknown, 07/16/16) Scheduled Acidophilus/Pectin, [place] (Acidophilus [place]let) 1 Each Tablet 1 EACH PO QAM Aspirin Chew (Aspirin Chew) 81 Mg Chew 81 MG PO DAILY Cholecalciferol (Vitamin D3) (Vitamin D) 1,000 Unit Tablet 1,000 UNIT PO QAM Cyanocobalamin (Vitamin B-12) (Vitamin B-12) 1,000 Mcg Tablet 1,000 MCG PO QAM Dextran 70/Hypromellose/Pf (Artificial Tears Drops) 1 Each Droperette 1 DROP BOTH_EYES BID Famotidine (Famotidine) 20 Mg Tablet 20 MG PO QAM Fluticasone Propionate (Flovent Diskus) 250 Mcg Disk.w.dev 1 PUFF INHALATION BID Glucosamine (Glucosamine) 500 Mg Tablet 500 MG PO BID Levothyroxine (Levothyroxine) 100 Mcg Tablet 100 MCG PO QAM Lisinopril (Lisinopril) 5 Mg Tablet 2.5 MG PO DAILY Melatonin/Pyridoxine (Melatonin 3 mg Tablet) 1 Each Tablet 1 EACH PO HS Metoprolol Succinate ER (Metoprolol Succinate ER) 50 Mg Tab.er.24h 50 MG PO BID Multivitamin (Once Daily) 1 Each Tablet 1 EACH PO QAM Olanzapine (Olanzapine) 5 Mg Tablet 5 MG PO QPM Oxybutynin Chloride ER (Oxybutynin Chloride ER) 10 Mg Tab.er.24 10 MG PO QPM Paroxetine (Paroxetine) 20 Mg Tablet 20 MG PO QPM Terbinafine (Terbinafine) 250 Mg Tablet 250 MG PO BID Tizanidine (Tizanidine) 4 Mg Tablet 4 MG PO TID Trazodone (Trazodone) 50 Mg Tablet 25 MG PO HS Scheduled PRN Bisacodyl (Dulcolax) 5 Mg Tablet.dr 5 MG PO QAM PRN PRN For Constipation Docusate Sodium (Docusate Sodium) 250 Mg Capsule 250 MG PO QAM PRN PRN For Constipation 30 DAY SUPPLY STARTED ON 12/19 Guaifenesin/Codeine Phosphate (Guaifen-Codeine 100-10 mg/5 ml) 120 Ml Liquid 10 ML PO Q4H PRN PRN For Cough Hydrocodone-Acetaminophen 5-325 mg (Hydrocodone-Acetaminophen 5-325 mg) 1 Each Tablet 1-2 TABLET PO BID PRN PRN For Pain Ondansetron (Ondansetron) 4 Mg Tablet 4 MG PO DAILY PRN PRN For Nausea/Vomiting Polyethylene Glycol 3350 (Miralax) 17 Gm Powd.pack 17 GM PO QAM PRN PRN For Constipation Sennosides (Senna) 8.6 Mg Tablet 17.2 MG PO QAM PRN PRN For Constipation General Time Seen by MD: 10:19 Chief Complaint Other (Hypertension) Hx Obtained From: Patient Arrived By: Ambulance Sudden in Onset?: No Onset Occurred: Onset unknown Severity: Current: No pain currently Associated with: Reports: Shortness of breath, Denies: Fever Past Medical History Past Medical History Notes: 12/24/16: Admit 12/07- for pacemaker replacement for sick sinus Seen in ED 12/23/16 for back pain and sciatica Echocardiogram November 2016 EF of 30-35%, akinesis along the distal one third of the left ventricular segments, hypokinesis on the middle one third, and the basal or proximal one third are normal [place] hyperkinetic-findings suspicious for stress-induced cardiomyopathy, but cannot completely exclude LAD infarction Past Medical History H/o bipolar with psychosis Diabetes mellitus type 2 diet-controlled, chronic Hypoproliferative anemia, seen by Dr. Alvarado. 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 Hypothyroidism History of kidney stones GERD Hypertension History of endometriosis Osteoarthritis diffuse with chronic pain. Past Surgical History Cataract removal in 2006 Pacemaker placement Hysterectomy at age 29 Cholecystectomy Tonsillectomy. Status post surgery for small bowel adhesions, hernia repair, and colon surgery Multiple hip replacements on the left x3. Smoking History Former Smoker Social History POLST indicates full code Alcohol Use: "Social" Drug Use: Denies drug use Other Social History: , Local resident Ambulatory Status Walker Review of Systems Full Review of Systems Constitutional: Denies: Fever Respiratory: Reports: Shortness of breath Cardiovascular: Reports: Chest pain Neurologic: Reports: Lightheaded, Denies: Headache, Syncope Complete sys rev & neg: except as marked. Physical Exam Vital Signs Vital Signs Date Time Temp Pulse Resp B/P Pulse Ox O2 Delivery O2 Flow Rate FiO2 01/05/17 13:59 60 17 141/76 98 Room Air 01/05/17 12:01 61 17 100/38 96 Room Air 01/05/17 10:59 59 16 67/46 99 Room Air 01/05/17 10:09 36.6 60 12 62/40 95 Room Air Initial VS: Reviewed General/Constitutional: Well-developed, Well-nourished Head / Eyes: Atraumatic, Normocephalic, PERRL ENT: Mucous membranes moist, Conjunctiva normal, No scleral icterus Neck: Full range of motion Respiratory: Breath sounds normal, Clear to auscultation, No respiratory distress Cardiovascular: Regular rate & rhythm, Heart sounds normal, Intact distal pulses Abdomen / GI: Soft, Non-tender Extremities: Vascular intact, Neuro intact, No swelling, No tenderness Skin: Warm, Dry, No cyanosis Neurologic: Alert, Oriented Psychiatric: Mood/affect normal, Behavior normal, Normal thought content Interpretation & Diagnostics Lab Results Interpretation Result Diagram: 01/05/17 1210 01/05/17 1210 Test 01/05/17 12:10 White Blood Count 4.1th/mm3 (3.8-10.1) Red Blood Count 2.75mil/mm3 (3.90-5.20) Hemoglobin 9.2g/dL (12.0-15.6) Hematocrit 28.4% (35.0-46.0) Mean Corpuscular Volume 103.3fL (81-100) Mean Corpuscular Hemoglobin 33.5pg (27.0-35.0) Mean Corpuscular Hemoglobin Concent 32.4% (32.0-37.0) Red Cell Distribution Width 13.6% (12.3-15.4) Platelet Count 187bil/L (150-400) Neutrophils (%) (Auto) 62.0% (40-74) Lymphocytes (%) (Auto) 25.0% (14-46) Monocytes (%) (Auto) 11.4% (4-12) Eosinophils (%) (Auto) 1.2% (0-5) Basophils (%) (Auto) 0.2% (0-3) Sodium Level 135mEq/L (134-144) Potassium Level 5.6mEq/L (3.5-5.2) Chloride Level 102mEq/L (97-108) Carbon Dioxide Level 21mmol/L (18-29) Blood Urea Nitrogen 33mg/dL (8-27) Creatinine 1.61mg/dL (0.57-1.00) Estimat Glomerular Filtration Rate 45mL/min (>59) Glucose Level 103mg/dL (60-99) Calcium Level 9.0mg/dL (8.5-10.1) Magnesium Level 2.0mg/dL (1.6-2.6) Total Bilirubin 0.4mg/dL (0.0-1.2) Aspartate Amino Transf (AST/SGOT) 17U/L (0-50) Alanine Aminotransferase (ALT/SGPT) 8U/L (0-32) Alkaline Phosphatase 68U/L (25-165) Troponin T 0.010ug/L (0.0-0.011) Total Protein 6.7g/dL (6.4-8.4) Albumin 3.5g/dL (3.4-5.0) Hold Mortensen Top Tube Received (Received) General Lab Results Interp 1: Labs reviewed ECG Interpretation ECG Interpretation: Atrial paced complexes RBBB Time: 11:36 Interpreted by: ED physician Normal ECG Interpretation: Normal rate (59) X-Ray Chest Interpretation Chest Xray Interpretation: IMPRESSION: No acute cardiopulmonary disease process. Dictated by: Delia Espinosa MD, PhD on 01/05/2017 at 12:05 View: Portable, 1 view Interpretation / Wet Read by: Interpret - Radiologist Re-Eval/Medical Decision Time of Eval: 10:45 Re-Evaluation/Progress Note: Pt resting comfortably. BP unchanged. 59/34. Time of Eval: 11:29 Re-Evaluation/Progress Note: BP now 80S. Time of Eval: 13:45 Re-Evaluation/Progress Note: Headache currently and overall not feeling well. Intermittently she has had many beats of a wide complex ventricular rhythm with the rate the same as her sinus rhythm. Not tachycardic. Consultation : Referral / Consult Name: Nael Jin MD Consulted With: Primary care physician Call Returned at: 13:49 Note: I did discuss with Dr. Jin the unusual ventricular rhythm that we saw a number of times on the monitor that was not symptomatic for the patient. Will see in clinic next week. He recommends no med changes. Counseled Regarding: Diagnosis, Lab results, Need for follow-up, When/why to return to ED Discharge & Departure Primary Impression: Hypotension Hypotension type: idiopathic hypotension Qualified Code: I95.0 - Idiopathic hypotension Additional Impression: Idioventricular rhythm Disposition: Home Discharge Condition All VS Reviewed: Yes Condition: Improved Additional Instructions: No dangerous cause for your symptoms was identified today. I recommended he continue to take her regular medications at home as directed. Call the clinic Saturday for follow-up with Dr. Jin later this week. Return to the emergency department for new or worrisome symptoms. Referrals: NOPCP (PCP) Nael Jin MD Scribe Attestation Portions of this note were transcribed by Ines Reese. I, (Dr. Dinero) personally performed the history, physical exam and medical decision-making; I reviewed and confirmed the accuracy of the information in the transcribed note. Signed by: Ines Reese. Jered, 01/05/2017, [id number] copies to: Nael Jin MD, Kirk H MD Jan 05, 2017 10:20 Ines Reese Jan 05, 2017 10:48
[2017-01-05 10:59] VITALS: BP 67/46; PULSE 59; RESP 16; O2SAT 99
[2017-01-05 12:01] VITALS: BP 100/38; PULSE 61; RESP 17; O2SAT 96
--- NOTE | 2017-01-05 12:07 | DRSVH ---
PROCEDURE: X-RAY CHEST ONE VIEW, PORTABLE ([id number]) INDICATIONS: hypotentsion TECHNIQUE: One view of the chest was acquired. COMPARISON: [facility], CR, XR CHEST 1VW (PORTABLE), 12/24/2016, 17:23. FINDINGS: Surgical changes and devices: Right chest wall cardiac pacer and left chest wall and cardiac pacer l kishan are stable in appearance. Cholecystectomy clips. Lungs and pleura: No pleural effusions or pneumothorax. Lungs are clear. Mediastinum: Mediastinal contours appear normal. Heart size is normal. Bones and chest wall: No suspicious bony lesions. Overlying soft tissues appear unremarkable. IMPRESSION: No acute cardiopulmonary disease process. Dictated by: Delia Espinosa MD, PhD on 01/05/2017 at 12:05 Approved by: Delia Espinosa MD, PhD on 01/05/2017 at 12:06
[2017-01-05 12:23] LABS: BASOPHILS % (AUTO) 0.2 % (0-3); EOSINOPHILS % (AUTO) 1.2 % (0-5); MONOCYTES % (AUTO) 11.4 % (4-12); Mean Corpuscular Hemoglobin 33.5 pg (27.0-35.0); Mean Corpuscular Volume 103.3 fL (81-100); Platelet Count 187 bil/L (150-400)
[2017-01-05 12:51] LABS: TROPONIN T 0.01 ug/L (0.0-0.011)
[2017-01-05 13:59] VITALS: BP 141/76; PULSE 60; RESP 17; O2SAT 98
[2017-01-05 14:49] VITALS: BP 141/76; PULSE 60; RESP 17; O2SAT 98
== END 2017-01-05 14:49 | disposition home or self-care (01) ==
LOC: EDBD 09:47 → EDUNIT# 09:47 → SED 09:47
DX: I95.0 Idiopathic hypotension (principal); I49.8 Other specified cardiac arrhythmias; K21.9 Gastro-esophageal reflux disease without esophagitis; E11.9 Type 2 diabetes mellitus without complications; E03.9 Hypothyroidism, unspecified; F31.9 Bipolar disorder, unspecified; Z95.0 Presence of cardiac pacemaker; Z86.73 Personal history of transient ischemic attack (TIA), and cerebral infarction without residual deficits; Z79.899 Other long term (current) drug therapy; Z87.891 Personal history of nicotine dependence; Z79.82 Long term (current) use of aspirin; Z88.1 Allergy status to other antibiotic agents; Z88.5 Allergy status to narcotic agent; Z88.8 Allergy status to other drugs, medicaments and biological substances; Z91.048 Other nonmedicinal substance allergy status; Z91.040 Latex allergy status

== ENCOUNTER 2017-01-12 11:55 | Observation (INO) | payer MEDICARE, OTHER ==
[2017-01-12] VITALS (11 sets, daily range): BP systolic 72–160; BP diastolic 44–98; PULSE 60–134; RESP 18–22; O2SAT 95–100
[~2017-01-12] VITALS: Ht 165.1 cm; Wt 79.2 kg
--- NOTE | 2017-01-12 12:01 | ED.REPORT ---
HPI-General Illness Date of Service Jan 12, 2017 ED Provider: Dr. Burgess Pt is a 72 y/o female w/ a hx of HTN, CHF with last EF 30-35% 12/08/16, NIDDM, anemia, TIA, CKD stage III, hyperlipidemia, pacemaker insertion, presenting to the ED via EMS from [facility] Heart Is due to hypotension onset this morning. The patient had a BP of 180 this morning and was given her normal dose of 25 mg Metoprolol and 2.5 mg Lisinopril. She takes Metoprolol and Lisinopril daily and usually has no complications. Today, her BP decreased to 70 systolic causing her to become lightheaded and generally weak. She states she had her pacemaker replaced because it was not working and since then she has been experiencing these symptoms. The patient was last here on December 26 for hypotension which was thought to be related to dehydration. Pt denies any pain, nausea, vomiting, diarrhea, fever, chills, focal numbness or weakness. Nursing Notes Stated Complaint: HYPOTENSION Nursing Notes Reviewed: Yes Allergies: Coded Allergies: TAPE (Verified Allergy, Severe, Sensitive Skin/Blisters (Paper& Coban OK) , 12/24/16) gabapentin (Verified Allergy, Severe, Edema, 12/24/16) meperidine (Verified Allergy, Severe, Seizures, 12/24/16) phenytoin (Verified Allergy, Severe, "I Turn Black", 12/24/16) ciprofloxacin (Verified Allergy, Intermediate, 12/24/16) Reported reaction from RN at [facility] deferasirox (Verified Allergy, Unknown, 12/24/16) lactose (Verified Allergy, Unknown, Abdominal Pain, 01/12/17) latex (Verified Allergy, Unknown, 12/24/16) codeine (Verified Adverse Reaction, Mild, itching, 12/24/16) calcium (Verified Adverse Reaction, Unknown, CALCIUM CITRATE, 12/07/16) Uncoded Allergies: HAYFEVER (Allergy, Unknown, 07/16/16) STRAWBERRIES, (Allergy, Unknown, 07/16/16) Scheduled Acidophilus/Pectin, [place] (Acidophilus Caplet) 1 Each Tablet 1 EACH PO QAM Aspirin Chew (Aspirin Chew) 81 Mg Chew 81 MG PO DAILY Cholecalciferol (Vitamin D3) (Vitamin D) 1,000 Unit Tablet 1,000 UNIT PO QAM Cyanocobalamin (Vitamin B-12) (Vitamin B-12) 1,000 Mcg Tablet 1,000 MCG PO QAM Dextran 70/Hypromellose/Pf (Artificial Tears Drops) 1 Each Droperette 1 DROP BOTH_EYES BID Famotidine (Famotidine) 20 Mg Tablet 20 MG PO QAM Fluticasone Propionate (Flovent Diskus) 250 Mcg Disk.w.dev 1 PUFF INHALATION BID Glucosamine (Glucosamine) 500 Mg Tablet 500 MG PO BID Levothyroxine (Levothyroxine) 100 Mcg Tablet 100 MCG PO QAM Lisinopril (Lisinopril) 5 Mg Tablet 2.5 MG PO DAILY Melatonin/Pyridoxine (Melatonin 3 mg Tablet) 1 Each Tablet 1 EACH PO HS Metoprolol Succinate ER (Metoprolol Succinate ER) 50 Mg Tab.er.24h 50 MG PO BID Multivitamin (Once Daily) 1 Each Tablet 1 EACH PO QAM Oxybutynin Chloride ER (Oxybutynin Chloride ER) 10 Mg Tab.er.24 10 MG PO QPM Paroxetine (Paroxetine) 20 Mg Tablet 20 MG PO QPM Terbinafine (Terbinafine) 250 Mg Tablet 250 MG PO BID Tizanidine (Tizanidine) 4 Mg Tablet 4 MG PO TID Trazodone (Trazodone) 50 Mg Tablet 25 MG PO HS Scheduled PRN Bisacodyl (Dulcolax) 5 Mg Tablet.dr 5 MG PO QAM PRN PRN For Constipation Docusate Sodium (Docusate Sodium) 250 Mg Capsule 250 MG PO QAM PRN PRN For Constipation 30 DAY SUPPLY STARTED ON 12/19 Guaifenesin/Codeine Phosphate (Guaifen-Codeine 100-10 mg/5 ml) 120 Ml Liquid 10 ML PO Q4H PRN PRN For Cough Hydrocodone-Acetaminophen 5-325 mg (Hydrocodone-Acetaminophen 5-325 mg) 1 Each Tablet 1-2 TABLET PO BID PRN PRN For Pain Ondansetron (Ondansetron) 4 Mg Tablet 4 MG PO DAILY PRN PRN For Nausea/Vomiting Sennosides (Senna) 8.6 Mg Tablet 17.2 MG PO QAM PRN PRN For Constipation General Time Seen by MD: 12:19 Chief Complaint Other (hypotension) Hx Obtained From: Patient, EMS Arrived By: Ambulance Sudden in Onset?: No Onset Occurred: 1 - 4 hours ago Symptom Duration: Since onset Severity: Current: No pain currently Severity: Maximum: No pain Past Medical History Past Medical History Notes: 12/24/16: Admit 12/07- for pacemaker replacement for sick sinus Seen in ED 12/23/16 for back pain and sciatica Echocardiogram November 2016 EF of 30-35%, akinesis along the distal one third of the left ventricular segments, hypokinesis on the middle one third, and the basal or proximal one third are normal [place] hyperkinetic-findings suspicious for stress-induced cardiomyopathy, but cannot completely exclude LAD infarction Past Medical History H/o bipolar with psychosis CKD III CHF Hyperlipidemia Diabetes mellitus type 2 diet-controlled, chronic Hypoproliferative anemia, seen by Dr. Alvarado. 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 Hypothyroidism History of kidney stones GERD Hypertension History of endometriosis Osteoarthritis diffuse with chronic pain. Past Surgical History Cataract removal in [facility] Pacemaker placement Hysterectomy at age 29 Cholecystectomy Tonsillectomy. Status post surgery for small bowel adhesions, hernia repair, and colon surgery Multiple hip replacements on the left x3. Smoking History Former Smoker Social History POLST indicates full code Alcohol Use: "Social" Drug Use: Denies drug use Other Social History: , Local resident Ambulatory Status Walker Review of Systems Full Review of Systems Constitutional: Reports: Weakness - generalized, Denies: Chills, Fever Respiratory: Denies: Non-productive cough, Shortness of breath Cardiovascular: Denies: Chest pain, Orthopnea GI: Denies: Abdominal pain, Diarrhea, Nausea, Vomiting Neurologic: Reports: Lightheaded, Denies: Change LOC, Confusion, Focal weakness, Headache, Numbness Complete sys rev & neg: except as marked. Physical Exam Vital Signs Vital Signs Date Time Temp Pulse Resp B/P Pulse Ox O2 Delivery O2 Flow Rate FiO2 01/12/17 15:30 134 142/98 100 01/12/17 15:25 71 136/79 100 01/12/17 15:20 62 135/57 100 01/12/17 15:04 60 18 105/56 100 Room Air 01/12/17 14:13 60 20 124/63 100 01/12/17 13:12 65 20 86/55 98 Room Air 01/12/17 12:21 36.4 60 21 72/44 98 Room Air Initial VS: Reviewed, Vital signs abnormal Head / Eyes: Atraumatic, Normocephalic, PERRL Neck: Supple, Full range of motion Respiratory: Breath sounds normal, Clear to auscultation, No respiratory distress Abdomen / GI: Soft, Non-tender Extremities: Vascular intact, Neuro intact, No swelling, No tenderness Skin: Warm, Dry, No cyanosis Neurologic: Alert, Oriented, Nonfocal Psychiatric: Mood/affect normal, Behavior normal, Normal thought content General/Constitutional: Awake, Alert, No acute distress, Cooperative, Not toxic appearing ENT: Atraumatic, Airway patent Mouth: Positive: Mucous membranes dry Cardiovascular: Heart rate NL, Regular rhythm, Cap refill not delayed, Peripheral circulation NL 2/6 hollow systolic murmur heard best at the left upper sternal border Interpretation & Diagnostics Lab Results Interpretation Result Diagram: 01/12/17 1244 01/12/17 1244 Test 01/12/17 12:44 01/12/17 15:43 White Blood Count 5.3th/mm3 (3.8-10.1) Red Blood Count 2.92mil/mm3 (3.90-5.20) Hemoglobin 9.8g/dL (12.0-15.6) Hematocrit 30.4% (35.0-46.0) Mean Corpuscular Volume 104.1fL (81-100) Mean Corpuscular Hemoglobin 33.6pg (27.0-35.0) Mean Corpuscular Hemoglobin Concent 32.2% (32.0-37.0) Red Cell Distribution Width 13.4% (12.3-15.4) Platelet Count 204bil/L (150-400) Neutrophils (%) (Auto) 61.9% (40-74) Lymphocytes (%) (Auto) 26.7% (14-46) Monocytes (%) (Auto) 9.7% (4-12) Eosinophils (%) (Auto) 1.3% (0-5) Basophils (%) (Auto) 0.2% (0-3) Sodium Level 134mEq/L (134-144) Potassium Level 4.9mEq/L (3.5-5.2) Chloride Level 100mEq/L (97-108) Carbon Dioxide Level 22mmol/L (18-29) Blood Urea Nitrogen 37mg/dL (8-27) Creatinine 1.78mg/dL (0.57-1.00) Estimat Glomerular Filtration Rate 40mL/min (>59) Glucose Level 91mg/dL (60-99) Lactic Acid Level 1.3mmol/L (0.4-2.0) Calcium Level 9.7mg/dL (8.5-10.1) Magnesium Level 1.9mg/dL (1.6-2.6) Total Bilirubin 0.4mg/dL (0.0-1.2) Aspartate Amino Transf (AST/SGOT) 18U/L (0-50) Alanine Aminotransferase (ALT/SGPT) 9U/L (0-32) Alkaline Phosphatase 88U/L (25-165) Pro-B-Type Natriuretic Peptide 5332pg/mL (0-301) Total Protein 7.7g/dL (6.4-8.4) Albumin 4.0g/dL (3.4-5.0) Procalcitonin 0.08ng/mL (0.00-0.08) Urine Color Yellow (YELLOW) Urine Appearance Clear (CLEAR,HAZY) Urine pH 6.0 (5.0-8.0) Urine Specific [place] 1.020 (1.003-1.035) Urine Protein Negativemg/dL (NEG,TRACE) Urine Glucose (UA) Negativemg/dL (NEGATIVE) Urine Ketones Negativemg/dL (NEGATIVE) Urine Occult Blood Negative (NEGATIVE) Urine Nitrite Negative (NEGATIVE) Urine Bilirubin Negative (NEGATIVE) Urine Urobilinogen Normalmg/dL (NORMAL) Urine Leukocyte Esterase Negative (NEGATIVE) Urine RBC 0-2/hpf (0-2) Urine WBC 0-5/hpf (0-5) Urine Epithelial Cells Few/hpf (NONE-MOD) Urine Crystals None seen (NONE SEEN) Urine Bacteria Few/hpf (NONE-FEW) Urine Hyaline Casts None/lpf (NONE) Urine Granular Casts None seen (NONE SEEN) Urine Waxy Casts None seen (NONE SEEN) Urine Red Blood Cell Casts None seen (NONE SEEN) Urine White Blood Cell Casts None seen (NONE SEEN) Urine Mucus None seen (None Seen) Urine Trichomonas None seen (NONE SEEN) Urine Yeast None (NONE SEEN) Urinalysis Comment None Urine Culture Reflexed Not indicated ECG Interpretation ECG Interpretation: A-V dual paced rhythm rate 60 New compared to EKG from 01/05 which showed atrial paced complexes and a RBBB Time: 12:53 Interpreted by: ED physician Normal ECG Interpretation: No acute ischemic changes X-Ray Chest Interpretation Chest Xray Interpretation: IMPRESSION: 1. No definite acute cardiopulmonary disease. Dictated by: Nilo Hernandez M.D. on 01/12/2017 at 14:39 Approved by: Nilo Hernandez M.D. on 01/12/2017 at 14:40 View: Portable, 1 view Interpretation / Wet Read by: Interpret - Radiologist Re-Eval/Medical Decision Med Decision/Clinical Course 72-year-old female with a history of cardiomyopathy (EF of 30% one month ago), CKD III, diabetes,, and some pacemaker malfunction presents from [facility] after an evening of blood pressures reported near 200 and taking her normal blood pressure medicines of lisinopril 2.5 mg and metoprolol 25 mg causing her blood pressure to plummet to 70/40. She was feeling very dizzy and we initially had a call IV therapy because she was a difficult IV stick possibly due to hypovolemia. Patient notes she drinks lots of fluid and does not think she is dehydrated. After 1 L fluid her blood pressure came up to 130 systolic and her dizziness improved significantly. She attempted to walk to the bathroom and although her blood pressure remained appropriate and her pulse jumped to 140 and she felt extremely lightheaded and dizzy. It is unclear to me why she is having this paroxysmal hypertension, tachycardia, and then episodes of hypotension. I discussed this case with Dr. Car initially will evaluate the pacemaker that was placed 1 month ago. I have a [facility] rep coming to do pacemaker check at 1700. She also recommends checking for adrenal insufficiency and hypothyroidism. Patient has been admitted multiple times in the past month for the same symptoms but they continue to recur. Time of Eval: 13:47 Re-Evaluation/Progress Note: Pt rechecked. BP 131/68. She is feeling much better. Time of Eval: 15:33 Re-Evaluation/Progress Note: Pt rechecked. Orthostatic performed by RN. Her BP is unchanged but her HR rises from 60 to 140 with associated sensation of dizziness and instability. Informed pt of need for admission. Pt understands and agrees with plan for admission. All questions addressed. Consultation #1: Referral / Consult Name: Vianca Car MD Consulted With: Cardiology Call Returned at: 15:38 [employer]: Will see patient, Agrees with eval, Agrees with plan Note: Case discussed. She is unsure what might be causing her symptoms. She recommends admit and will consult. Awaiting pacemaker interrogation at 17:00. Consultation #2: Referral / Consult Name: Logan Garcia MD Consulted With: Hospitalist Call Returned at: 16:20 [employer]: Will see patient, Agrees with eval, Agrees with plan, Accepts admit Counseled Regarding: Diagnosis, Lab results, Need for admission Discharge & Departure Primary Impression: Hypotension Hypotension type: unspecified hypotension type Qualified Code: I95.9 - Hypotension, unspecified Additional Impressions: Orthostasis Paroxysmal hypertension Disposition: ADMITTED TO HOSPITAL Discharge Condition All VS Reviewed: Yes Condition: Stable Referrals: NOPCP (PCP) Scribe Attestation Portions of this note were transcribed by Veto Manley. I, Dr. Burgess personally performed the history, physical exam and medical decision-making; I reviewed and confirmed the accuracy of the information in the transcribed note. Signed by Jered Light, 01/12/17 - 1300 Kei Burgess DO Jan 12, 2017 12:01 VETO MANLEY Jan 12, 2017 12:26
[2017-01-12] MEDS ORDERED: 0.9% Sodium Chloride 1,000 ML IV ONE ×2 (12:28→15:33)
[2017-01-12 13:04] LABS: BASOPHILS % (AUTO) 0.2 % (0-3); EOSINOPHILS % (AUTO) 1.3 % (0-5); MONOCYTES % (AUTO) 9.7 % (4-12); Mean Corpuscular Hemoglobin 33.6 pg (27.0-35.0); Mean Corpuscular Volume 104.1 fL (81-100); NEUTROPHILS % (AUTO) 61.9 % (40-74); Platelet Count 204 bil/L (150-400)
[2017-01-12 13:40] LABS: TROPONIN T 0.011 ug/L (0.0-0.011)
[2017-01-12 13:54] LABS: Magnesium 1.9 mg/dL (1.6-2.6)
--- NOTE | 2017-01-12 14:42 | DRSVH ---
PROCEDURE: X-RAY CHEST ONE VIEW, PORTABLE ([id number]) INDICATIONS: hypotension/dizziness TECHNIQUE: One view of the chest was acquired. COMPARISON: [facility], CR, XR CHEST 1VW (PORTABLE), 01/05/2017, 11:29. FINDINGS: Surgical changes and devices: Right chest wall pacemaker and leads appear similar compared to the amira or study. Left-sided leads also appear similar in position. Lungs and pleura: No pleural effusions or pneumothorax. Visualized lungs are clear. Mediastinum: Mediastinal contours appear unchanged. Heart size is normal. Bones and chest wall: No suspicious bony lesions. Overlying soft tissues appear unremarkable. IMPRESSION: 1. No definite acute cardiopulmonary disease. Dictated by: Nilo Hernandez M.D. on 01/12/2017 at 14:39 Approved by: Nilo Hernandez M.D. on 01/12/2017 at 14:40
[2017-01-12] MEDS ORDERED: Alum-Mag Hydrox-Simeth 30 mL Suspension PO PRN (16:20)
[2017-01-12 16:43] LABS: APPEARANCE,URINE CLEAR (CLEAR,HAZY); COLOR,URINE YELLOW (YELLOW); OCCULT BLOOD,URINE NEGATIVE (NEGATIVE); UROBILINOGEN,URINE NORMAL (NORMAL)
--- NOTE | 2017-01-12 17:19 | PCM.HPMED ---
Subjective Date of Service Jan 12, 2017 Primary Provider: Admitting Physician: Primary Care Physician: Andria Attending Physician: Chief Complaint: low bp at SNF HISTORY was OBTAINED FROM PATIENT / MEDITECH NOTES History of present illness 72-year-old female brought in from [facility] facility recurrent due to blood pressure fluctuating since last pacemaker was placed per patient 11/2016. LAst night at nursing facility she had been hypertensive throughout the night systolic blood pressure 180s reportedly, this morning after metoprolol lisinopril routine dose given, patient became hypotensive 70/40, transported to ER and improved in the ER 1 L of fluid but with ambulation in the ER heart rates 140s syptomatic for dizziness, Dr. Car recommended tsh/cortisol check given that pacemaker interrogation study appeared normal in ER. per DEC review metoprolol for decreased 1 week ago, olanazapine was recently increased. no other medication changes are apparent. NO SOB, no water weight gain, no more diarrhea. Per EMS 180/90s dizzy a and o x 4 In the ER 86/55-142/98 heart rate 60-134, heart rate increased when standing during orthostatic measurements 12/24 admission for hypotension thought to be due to diffuse diarrhea associated, recent Rocephin and Keflex due to asymptomatic Escherichia coli UTI, pacemaker had been replaced 12/13/2016, concurrent elevated troponin, concurrent hyponatremia. 01/01 s/p fluconazole x 1 at SNF due to vaginitis symptoms. 01/09 Dr. bowers had evaluated patient for cervical dystonia considering Botox Review of Systems - none of the following - F/C/sick contact / wt change/ sob / cough / cp / acid reflux / n/v/diarrhea / leg swelling / rash ambulates epigastric discomfort w/ chronic intermittent vomiting of food w/ known proximal dysphagaia-she works w/[employer] on this. urinary urgency is chronic. FAMILY HX SC, lung cancer, diabetes SOCIAL HX distant smoker, no alcohol from correction MEDICATIONS vicodin Acidophilus/Pectin, [place] (Acidophilus Caplet) 1 Each Tablet 1 EACH PO QAM Aspirin Chew (Aspirin Chew) 81 Mg Chew 81 MG PO DAILY Cholecalciferol (Vitamin D3) (Vitamin D) 1,000 Unit Tablet 1,000 UNIT PO QAM Cyanocobalamin (Vitamin B-12) (Vitamin B-12) 1,000 Mcg Tablet 1,000 MCG PO QAM Dextran 70/Hypromellose/Pf (Artificial Tears Drops) 1 Each Droperette 1 DROP BOTH_EYES BID Famotidine (Famotidine) 20 Mg Tablet 20 MG PO QAM Fluticasone Propionate (Flovent Diskus) 250 Mcg Disk.w.dev 1 PUFF INHALATION BID Glucosamine (Glucosamine) 500 Mg Tablet 500 MG PO BID Levothyroxine (Levothyroxine) 100 Mcg Tablet 100 MCG PO QAM Lisinopril (Lisinopril) 5 Mg Tablet 2.5 MG PO DAILY Melatonin/Pyridoxine (Melatonin 3 mg Tablet) 1 Each Tablet 1 EACH PO HS Metoprolol Succinate ER (Metoprolol Succinate ER) 50 Mg Tab.er.24h 50 MG PO BID Multivitamin (Once Daily) 1 Each Tablet 1 EACH PO QAM Olanzapine (Olanzapine) 5 Mg Tablet 10 MG PO QPM Oxybutynin Chloride ER (Oxybutynin Chloride ER) 10 Mg Tab.er.24 10 MG PO QPM Paroxetine (Paroxetine) 20 Mg Tablet 20 MG PO QPM Terbinafine (Terbinafine) 250 Mg Tablet 250 MG PO BID Tizanidine (Tizanidine) 4 Mg Tablet 4 MG PO TID Trazodone (Trazodone) 50 Mg Tablet 25 MG PO HS Scheduled PRN Bisacodyl (Dulcolax) 5 Mg Tablet.dr 5 MG PO QAM PRN PRN For Constipation Docusate Sodium (Docusate Sodium) 250 Mg Capsule 250 MG PO QAM PRN PRN For Constipation 30 DAY SUPPLY STARTED ON 12/19 Guaifenesin/Codeine Phosphate (Guaifen-Codeine 100-10 mg/5 ml) 120 Ml Liquid 10 ML PO Q4H PRN PRN For Cough Hydrocodone-Acetaminophen 5-325 mg (Hydrocodone-Acetaminophen 5-325 mg) 1 Each Tablet 1-2 TABLET PO BID PRN PRN For Pain Ondansetron (Ondansetron) 4 Mg Tablet 4 MG PO DAILY PRN PRN For Nausea/Vomiting Polyethylene Glycol 3350 (Miralax) 17 Gm Powd.pack 17 GM PO QAM PRN PRN For Constipation Sennosides (Senna) 8.6 Mg Tablet 17.2 MG PO QAM PRN PRN For Constipation Past Medical/Surgical HX Sick sinus syndrome pacemaker 12/14/2016 right bundle branch block Dyslipidemia DM type II diet controlled Hypothyroidism Cataracts Dysphagia CVA 2 Migraine status post Botox Pacemaker not anticoagulated hypertension Pneumonia Sleep apnea resolved after weight loss Gastric ulcer in her 20s, GERD CkD 3 with recurrent AK I incontinence Chronic pain C. difficile MRSA bacteremiaMRSA November 2016 Endometriosis kidney stones/UTI Joint replacement 6 hip surgeries, back arthritis, femur fracture, ground-level fall, hysterectomy BSO, cholecystectomy, tonsillectomy, small and large bowel operation, lysis of adhesions Diabetes Bipolar depression anxiety Exam on admission on room air NAD A and O x 3 mood affect WNL NC/AT no icterus no injected eyes EOMI PERRL /no pharyngeal lesions/ no oral lesions / hearing intact Supple neck CTAB equal chest rise / no accessory muscle use / speaks in full sentences / no rrw RRR S1 S2 / no mrg / 2+ radial pulses Soft nt nd + BS no hepatosplenomegaly except mildly tender to epigastric palaption No edema no cyanosis no ecchymosis of lower extremities No rash / no jaundice PETER symmetrical facies pacer left chest wall brusing of arms EKG AV paced, 60 Trop 0.0 11 Creatinine 1.70 baseline BNP 5332 worse than 20 days ago 3610 Blood culture pending UA normal LFT normal Imaging PROCEDURE: X-RAY CHEST ONE VIEW, PORTABLE ([id number]) INDICATIONS: hypotension/dizziness TECHNIQUE: One view of the chest was acquired. COMPARISON: [facility], CR, XR CHEST 1VW (PORTABLE), 01/05/2017, 11: 29. FINDINGS: Surgical changes and devices: Right chest wall pacemaker and leads appear similar compared to the prior study. Left-sided leads also appear similar in position. Lungs and pleura: No pleural effusions or pneumothorax. Visualized lungs are clear. Mediastinum: Mediastinal contours appear unchanged. Heart size is normal. Bones and chest wall: No suspicious bony lesions. Overlying soft tissues appear unremarkable. IMPRESSION: 1. No definite acute cardiopulmonary disease. Echo 12/24/16 Interpretation Summary The left ventricle is normal in size. Left ventricular systolic function is normal. The ejection fraction is estimated to be 65-70%. The right ventricle is normal in size and function. No other echocardiographic abnormalities seen. The LV looks somewhat volumn depleted and the IVC suggests low filling pressures. Consider volumn depletion as a cause of the patients hypotension. No obvious pacemaker causes for the patients hypotension noted. Active issues and reason for admission fluctuating BP and tachycardia despite changing of BP meds per outpt provider at SNF and despite new pacermaker in setting of chronic SSS. --decrease olazapine back to 5 from 10 --split metopolol to 25 BID w/ holding parameters, hold lisinopril --orthostatics qday --thyroid panel and cortisol pending --serial trop w/ BNP that is more elevated, consider dCHF component however no SOB/CP --anticipate further recs from cardiology --monitor electrolytes epigastric tenderness --dc famotidine, trial PPI --pending h pylori stool, pasth hx of gastric ulcer --pendnig lipase, unlikely w/ tenderness not extreme Chronic vomiting intermittent --BM this evening firm --associated w/ proximal dysphagin, no EGD --anticipate outpt EGD evaluatino on discharge Chronic issues known prior to admission, present on admission Macrocytic anemia, on B vit already Sick sinus syndrome pacemaker 12/14/2016 right bundle branch block Dyslipidemia DM type II diet controlled Hypothyroidism Cataracts Dysphagia CVA 2 Migraine status post Botox Pacemaker not anticoagulated hypertension Pneumonia Sleep apnea resolved after weight loss Gastric ulcer in her 20s, GERD CkD with recurrent AK I incontinence Chronic pain C. difficile MRSA bacteremiaMRSA November 2016 Endometriosis kidney stones/UTI Joint replacement 6 hip surgeries, back arthritis, femur fracture, ground-level fall, hysterectomy BSO, cholecystectomy, tonsillectomy, small and large bowel operation, lysis of adhesions Diabetes Bipolar depression anxiety --hold terbinifine for now Diet DM DVT prophylaxis heparin scd ambulate Code full Disposition OBS status Assessment and plan were discussed with patient Allergies Coded Allergies: TAPE (Verified Allergy, Severe, Sensitive Skin/Blisters (Paper& [place]) , 12/24/16) gabapentin (Verified Allergy, Severe, Edema, 12/24/16) meperidine (Verified Allergy, Severe, Seizures, 12/24/16) phenytoin (Verified Allergy, Severe, "I Turn Black", 12/24/16) ciprofloxacin (Verified Allergy, Intermediate, 12/24/16) Reported reaction from RN at [facility] deferasirox (Verified Allergy, Unknown, 12/24/16) latex (Verified Allergy, Unknown, 12/24/16) codeine (Verified Adverse Reaction, Mild, itching, 12/24/16) calcium (Verified Adverse Reaction, Unknown, CALCIUM CITRATE, 12/07/16) Uncoded Allergies: HAYFEVER (Allergy, Unknown, 07/16/16) STRAWBERRIES, (Allergy, Unknown, 07/16/16) PMH Social History Hx Alcohol Use: No Hx Substance Use: No Hx Tobacco Use: Yes (remote history) Smoking Status: Former Smoker Exam Vital Signs Vital Sign - Last Date Time Temp Pulse Resp B/P Pulse Ox O2 Delivery O2 Flow Rate FiO2 01/12/17 15:30 134 142/98 100 01/12/17 15:04 18 Room Air 01/12/17 12:21 36.4 Lab and Diagnostics Result Diagram: 01/12/17 1244 01/12/17 1244 Logan Garcia MD Jan 12, 2017 17:19
[2017-01-12] MEDS: Ondansetron 2 mg/mL 2 mL Inj IVPUSH PRN ×2 (18:26→20:47)
[2017-01-12] MEDS ORDERED: _HYDROcodone/APAP 5-325 mg Tablet PO PRN (20:05)
[2017-01-12] MEDS: HYDROcodone-APAP 5-325 mg Tablet PO PRN (20:46)
[2017-01-12] MEDS: Pantoprazole 20 mg ER24 Tablet PO SCH (20:47)
[2017-01-12] MEDS: Heparin 5,000 Unit/mL Inj SUBQ SCH (23:57)
[2017-01-12] MEDS: Sodium Chloride LOK Flush 10 mL Syringe IVFLUSH SCH (23:57)
[2017-01-13] VITALS (7 sets, daily range): BP systolic 129–178; BP diastolic 68–91; PULSE 60–61; RESP 18–20; O2SAT 96–98
[2017-01-13 05:54] LABS: TROPONIN T 0.01 ug/L (0.0-0.011)
[2017-01-13 06:14] LABS: Magnesium 1.7 mg/dL (1.6-2.6)
--- NOTE | 2017-01-13 06:22 | NUR ---
Admit/Noc activity Pt has been admitted due to hypotension. Pt denies chest pain, sob. Complains of mild nausea but has been relief with prn zofran. HS meds administered as ordered. BP has been elevated from the start of shift. MD is notified and aware, ordered to keep monitoring. Hourly rounding done. Afebrile overnight.
[2017-01-13] MEDS: Pantoprazole 20 mg ER24 Tablet PO SCH ×2 (09:09→20:14)
[2017-01-13] MEDS: PARoxetine 20 mg Tablet PO SCH (09:09)
[2017-01-13] MEDS: Sodium Chloride LOK Flush 10 mL Syringe IVFLUSH SCH ×2 (09:10→16:05)
[2017-01-13] MEDS: Artificial Tears 15 mL Ophthalmic Solution BOTH_EYES SCH (09:10)
[2017-01-13] MEDS: Heparin 5,000 Unit/mL Inj SUBQ SCH ×2 (09:10→16:05)
--- NOTE | 2017-01-13 09:28 | NUR ---
Social Work: Initial Assessment D: Per EMR review, pt is a 72 year old female admitted for Hypotension, Congestive Heart Failure. Pt is Medicare with for Life Supplement. PCP was previously Nael Jin MD. Pt is getting a new PCP at the same clinic. NOK is Harris Sharpe, spouse, . POLST on file- REAL ESTATE CLOSING COORDINATOR discussed AD with pt. who politely declined further information. Readmit score is moderate, 5/8. REAL ESTATE CLOSING COORDINATOR met with pt at bedside. Sw role explained and contact information provided. See initial assessment. Pt lives at [facility] in [place]. Pt uses a FWW at baseline. She does not drive and relies on [employer] for most transportation. Pt states [facility] staff assists her with bathing but not much else. Pt has never had HH and has previously been at [facility] in [place] for skilled rehab. Pt intends to discharge back to [facility] when medically stable via [employer]. t/c to [facility] to discuss pt's services and discharge back to facility; REAL ESTATE CLOSING COORDINATOR left message requesting return phone call from RN or computer systems security administrator to discuss these topics. A: Pt who lives at [facility]. P: Anticipate pt to discharge back to [facility] pending clinical course and conversation with [facility] staff about admission back. REAL ESTATE CLOSING COORDINATOR to continue to follow and attempt further contact with [facility] staff. ALBERT Fisher Addendum: 01/13/17 at 0934 by DESI ARIAS Amended: Links added.
[2017-01-13] MEDS: Ondansetron 2 mg/mL 2 mL Inj IVPUSH PRN (12:30)
--- NOTE | 2017-01-13 12:49 | NUR ---
SIMRAN explained and signed. Copy of SIMRAN and Medicare self administered medication information given to pt.
[2017-01-13] MEDS: HYDROcodone-APAP 5-325 mg Tablet PO PRN ×2 (16:04→22:42)
--- NOTE | 2017-01-13 17:48 | PCM.PNMED ---
Subjective Date of Service Jan 13, 2017 Subjective Camila Sharpe is a 72-year-old female brought in from [facility] recurrent due to blood pressure fluctuating since last pacemaker was placed per patient 11/2016. Hospital day #2 Overnight: No acute events. Today: The patient states she feels well but wants to know what is going on with her blood pressure. She denies any chest pain, shortness of breath, cough, fever, chills or diaphoresis. The remainder of the review of systems is negative except as note above. Exam Vital Signs Vital Sign - Last Date Time Temp Pulse Resp B/P Pulse Ox O2 Delivery O2 Flow Rate FiO2 01/13/17 15:20 36.7 60 18 154/77 98 Room Air Intake and Output 01/12/17 01/12/17 01/13/17 Cumulative From/Thru 15:00 23:00 07:00 01/12/17 12:21 - 01/13/17 06:57 Intake Total 2000 ml 700 ml 2700 ml Balance 2000 ml 700 ml 2700 ml Intake Oral 700 ml 700 ml IV Total 2000 ml 2000 ml # Voids 2 2 # Bowel Movements 1 1 Exam General: No acute distress, well-developed, well-nourished, appropriately interactive HEENT: Normocephalic, atraumatic. External ears without defect. Pupils equal, round, and reactive to light and accommodation. Anicteric sclerae, moist conjunctivae, and no lid lag. Oropharynx free of erythema and cobble stoning with moist mucosa. Neck: Supple with full range of motion. No jugular venous distension. No bruits. No lymphadenopathy or thyromegaly. Cardiovascular: Regular rate and rhythm with no murmurs, rubs, or gallops appreciated Pulmonary: Clear to auscultation bilaterally with no crackles, wheezes, or rhonchi. Normal respiratory effort with no use of accessory muscles. Abdomen: Bowel tones present. Soft, nontender, nondistended. No hepatosplenomegaly or masses appreciated. Extremities: No clubbing, cyanosis, edema, or lymphadenopathy appreciated. Skin: Normal temperature, turgor, and texture; no rash, ulcers, or subcutaneous nodules appreciated. Neurological: Cranial nerves grossly intact. Normal muscle strength, tone, and bulk. Reflexes, coordination, and sensory function within normal limits. No known gait impairment. Psychiatric: Normal mood and affect. Alert and oriented to person, place, and time. IVs and Medications Medications Reviewed: Medications were reviewed in detail Lab and Diagnostics Result Diagram: 01/12/17 1244 01/13/17 0500 X-Rays, CTs and MRIs X-RAY CHEST ONE VIEW, PORTABLE IMPRESSION: 1. No definite acute cardiopulmonary disease. Dictated by: Nilo Hernandez M.D. on 01/12/2017 at 14:39 Assessment & Plan Camila Sharpe is a 72-year-old female brought in from care home facility recurrent due to blood pressure fluctuating since last pacemaker was placed per patient 11/2016. Hospital day #2 1. Fluctuating blood pressure and tachycardia in setting of chronic SSS -Etiology unclear, may be due to adverse reaction from medication, or less likely due to hypothyroidism or adrenal insufficiency. -Decrease olanzapine back to 5 from 10 mg -Decrease metoprolol to 25 mg BID w/ holding parameters -Hold lisinopril -Orthostatics daily -Thyroid panel and cortisol pending -Anticipate further recs from cardiology -Monitor electrolytes 2. Epigastric tenderness -DC famotidine, trial PPI -Pending h pylori stool as patient has past history of gastric ulcer -Lipase normal 3. Chronic vomiting, intermittent -Associated w/ proximal dysphagia -Anticipate outpatient EGD Chronic issues known prior to admission, present on admission: Macrocytic anemia -Continue B12 Dyslipidemia DM type II, diet controlled -Most recent A1C 4.7% -Carb constant diet Hypothyroidism -Levothyroxine 100 MCG PO QAM CVA 2 -Aspirin Migraine status post Botox Hypertension -Management as above CKD Chronic pain Bipolar depression anxiety Continue home medications: Olanzapine 5 Mg PO QPM, Paroxetine 20 MG PO QPM, Trazodone 25 MG PO HS Dispo: Anticipate patient can be discharged in the next day or so. Attending Statement The patient was seen and examined together with Dr. Benites on 01/13/2017 and I agree with the history, exam and plan as outlined in the note above. Sharmin Benites DO Jan 13, 2017 15:51 Barrington Jeong MD Jan 13, 2017 17:52
[2017-01-14] MEDS: Sodium Chloride LOK Flush 10 mL Syringe IVFLUSH SCH ×2 (00:33→08:29)
[2017-01-14] MEDS: Heparin 5,000 Unit/mL Inj SUBQ SCH ×2 (00:33→08:29)
[2017-01-14 02:11] VITALS: BP 111/70; PULSE 60; RESP 20; O2SAT 93
[2017-01-14 06:37] VITALS: BP_SYST 157; BP_SYST 158; BP_SYST 171; BP_DIAS 79; BP_DIAS 85; BP_DIAS 92; PULSE 60; RESP 20; O2SAT 96
--- NOTE | 2017-01-14 06:38 | NUR ---
NOC activity Pt alert and oriented. Denies chest pain, sob, n/v or abdominal discomfort. Orthostatic vs done. Lyin/79 Sittin/85 Standin/92 Pt denies dizziness while standing up. Hourly rounding done and pt has slept most of the night.
[2017-01-14 06:46] LABS: BASOPHILS % (AUTO) 0.4 % (0-3); EOSINOPHILS % (AUTO) 3.6 % (0-5); MONOCYTES % (AUTO) 12.3 % (4-12); Mean Corpuscular Hemoglobin 33.6 pg (27.0-35.0); Mean Corpuscular Volume 104.5 fL (81-100); NEUTROPHILS % (AUTO) 33.5 % (40-74); Platelet Count 137 bil/L (150-400)
[2017-01-14 08:08] LABS: Free Thyroxine Index 2.6 (1.2-4.9); Thyroxine (T4) 6.7 ug/dL (4.5-12.0)
[2017-01-14] MEDS: PARoxetine 20 mg Tablet PO SCH (08:28)
[2017-01-14] MEDS: Pantoprazole 20 mg ER24 Tablet PO SCH (08:29)
[2017-01-14] MEDS: HYDROcodone-APAP 5-325 mg Tablet PO PRN (08:32)
[2017-01-14] MEDS: Artificial Tears 15 mL Ophthalmic Solution BOTH_EYES SCH (08:36)
[2017-01-14 10:10] VITALS: PULSE 61
[2017-01-14 10:18] VITALS: BP 151/81; PULSE 60; RESP 20; O2SAT 98
--- NOTE | 2017-01-14 11:04 | NUR ---
Social work-readiness for discharge: Data:EMR reviewed. Pt is on day 2 of hospitalization for hypotension per H&P. Pt is likely medically stable later today or tomorrow. JORGE placed a call and spoke with Roxana at [facility]. Roxana states they would like clinicals faxed to [phone] for review, but pt is fine to return back to them today.SW faxed updated clinicals. SW will also need to fax discharge information. pt typically uses [employer] for transport to be scheduled at discharge. SW will continue to follow. Assessment:Pt who resides at [facility]. Plan:Pt to discharge back to [facility] when medically stable. SW will also need to fax discharge information to [facility]. SW will continue to follow. ALBERT Donnelly
--- NOTE | 2017-01-14 11:40 | PCM.DIMED ---
Aroldo Wolfe DO 01/14/17 1140: Discharge Instructions Date of Service Jan 14, 2017 Dates of Hospitalization Jan 12, 2017 at 17:44 Discharge Diagnosis Discharge Diagnosis Labile blood pressure and tachycardia in setting of chronic SSS- Stable Epigastric tenderness - resolved Chronic vomiting, intermittent - stable Macrocytic anemia Dyslipidemia DM type II, diet controlled Hypothyroidism H/o CVA 2 Migraine status post Botox - stable Hypertension CKD Chronic pain Bipolar depression anxiety Medication Instructions Please note the new changes to your medications. Continue taking them as instructed. Diet Heart Healthy Activity Outpatient Physical Therapy Call your provider Fever or Chills, Shortness of breath, Chest pain, Weakness (unilateral) Patient Instructions Please follow up with your PCP within 1-2 weeks Please follow up with your assorter within 1-2 weeks Follow-up Provider: Nael Jin MD Follow-up with PCP in: 1 week Raymundo Kearns MD 01/14/17 1420: Discharge Instructions Attending's Statement The patient was seen and examined independently and discussed with Dr. Wolfe on and I agree with the discharge instructions and plan as outlined in the note above. Aroldo Wolfe DO Jan 14, 2017 11:40 Raymundo Kearns MD Jan 14, 2017 14:20
[2017-01-14] MEDS ORDERED: METO25TA6 PO (11:43)
--- NOTE | 2017-01-14 13:19 | NUR ---
Social Work-discharge: Data:EMR Reviewed. Pt is on day 2 of hospitalization for hypotension per H&P. Pt is medically stable for discharge today. JORGE spoke with Roxana at [facility], faxed discharge information and informed her of discharge time 2:10. Roxana agreeable for pt to return. JORGE arranged transport via [employer] for 1410. Pt and RN updated and agreeable to plan. Assessment:Pt who will return to [facility]. Plan:Pt to discharge back to [facility] today via [facility] at 210. Pt and RN updated and agreeable to plan. ALBERT Donnelly
--- NOTE | 2017-01-14 14:19 | NUR ---
Discharge Reviewed discharge paperwork, care notes, and medications with pt and disclaimer signed. IV DCd intact, tele removed, all belongings with pt. VSS, no s/sx of distress, no c/o pain. Pt taken curbside via WC at 1410 - [facility] providing transportation to [facility] (SNF).
--- NOTE | 2017-01-14 17:35 | PCM.DC.MED ---
Discharge Summary Date of Service Jan 14, 2017 Dates of Hospitalization Date of Hospital Admission Jan 12, 2017 at 17:44 Date of Discharge: Jan 14, 2017 Providers: Admitting Physician: Logan Garcia MD Primary Care Physician: Andria Attending Physician: Logan Garcia MD Diagnosis at Time of Discharge Diagnosis at Time of Discharge Labile blood pressure and tachycardia in setting of chronic SSS- Stable Epigastric tenderness - resolved Chronic vomiting, intermittent - stable Macrocytic anemia Dyslipidemia DM type II, diet controlled Hypothyroidism H/o CVA 2 Migraine status post Botox - stable Hypertension CKD Chronic pain Bipolar depression anxiety Procedures XRay, CTs & MRIs X-RAY CHEST ONE VIEW, PORTABLE IMPRESSION: 1. No definite acute cardiopulmonary disease. Dictated by: Nilo Hernandez M.D. on 01/12/2017 at 14:39 Brief History per HPI by Dr Garcia 72-year-old female brought in from longterm facility recurrent due to blood pressure fluctuating since last pacemaker was placed per patient 11/2016. LAst night at nursing facility she had been hypertensive throughout the night systolic blood pressure 180s reportedly, this morning after metoprolol lisinopril routine dose given, patient became hypotensive 70/40, transported to ER and improved in the ER 1 L of fluid but with ambulation in the ER heart rates 140s syptomatic for dizziness, Dr. Car recommended tsh/cortisol check given that pacemaker interrogation study appeared normal in ER. per DEC review metoprolol for decreased 1 week ago, olanazapine was recently increased. no other medication changes are apparent. NO SOB, no water weight gain, no more diarrhea. Hospital Course Camila Sharpe is a 72-year-old female brought in from longterm facility recurrent due to blood pressure fluctuating since last pacemaker was placed per patient 11/2016. 1. Fluctuating blood pressure and tachycardia in setting of chronic SSS - stable -Etiology unclear, may be due to adverse reaction from medication, or less likely due to hypothyroidism or adrenal insufficiency. -Decreased olanzapine back to 5 from 10 mg -Decreased metoprolol to 25 mg BID w/ holding parameters -Held lisinopril -Thyroid panel and cortisol wnl -This resolved after decreasing her Olanzapine and Metoprolol 2. Epigastric tenderness -Discharged on PPI -Lipase normal 3. Chronic vomiting, intermittent -Associated w/ proximal dysphagia -Anticipate outpatient EGD Chronic issues known prior to admission, present on admission: Macrocytic anemia -Continue B12 Dyslipidemia DM type II, diet controlled -Most recent A1C 4.7% -Carb constant diet Hypothyroidism -Levothyroxine 100 MCG PO QAM CVA 2 -Aspirin Migraine status post Botox Hypertension -Management as above CKD Chronic pain Bipolar depression anxiety Continue home medications: Olanzapine 5 Mg PO QPM, Paroxetine 20 MG PO QPM, Trazodone 25 MG PO HS Exam Vital Signs (Last) Date Time Temp Pulse Resp B/P Pulse Ox O2 Delivery O2 Flow Rate FiO2 01/14/17 10:18 36.3 60 20 151/81 98 Room Air Exam General: No acute distress, well-developed, well-nourished, appropriately interactive HEENT: Normocephalic, atraumatic. External ears without defect. Pupils equal, round, and reactive to light and accommodation. Anicteric sclerae, moist conjunctivae, and no lid lag. Oropharynx free of erythema and cobble stoning with moist mucosa. Cardiovascular: Regular rate and rhythm with no murmurs, rubs, or gallops appreciated Pulmonary: Clear to auscultation bilaterally with no crackles, wheezes, or rhonchi. Normal respiratory effort with no use of accessory muscles. Abdomen: Bowel tones present. Soft, nontender, nondistended. No hepatosplenomegaly or masses appreciated. Extremities: No clubbing, cyanosis, edema, or lymphadenopathy appreciated. Skin: Normal temperature, turgor, and texture; no rash, ulcers, or subcutaneous nodules appreciated. Neurological: Cranial nerves grossly intact. Normal muscle strength, tone, and bulk. Psychiatric: Normal mood and affect. Alert and oriented to person, place, and time. Test 01/12/17 12:44 01/12/17 15:43 01/12/17 19:45 01/13/17 05:00 Lactic Acid Level 1.3mmol/L (0.4-2.0) Total Bilirubin 0.4mg/dL (0.0-1.2) Aspartate Amino Transf (AST/SGOT) 18U/L (0-50) Alanine Aminotransferase (ALT/SGPT) 9U/L (0-32) Alkaline Phosphatase 88U/L (25-165) Pro-B-Type Natriuretic Peptide 5332pg/mL (0-301) Total Protein 7.7g/dL (6.4-8.4) Albumin 4.0g/dL (3.4-5.0) Procalcitonin 0.08ng/mL (0.00-0.08) Urine Color Yellow (YELLOW) Urine Appearance Clear (CLEAR,HAZY) Urine pH 6.0 (5.0-8.0) Urine Specific [place] 1.020 (1.003-1.035) Urine Protein Negativemg/dL (NEG,TRACE) Urine Glucose (UA) Negativemg/dL (NEGATIVE) Urine Ketones Negativemg/dL (NEGATIVE) Urine Occult Blood Negative (NEGATIVE) Urine Nitrite Negative (NEGATIVE) Urine Bilirubin Negative (NEGATIVE) Urine Urobilinogen Normalmg/dL (NORMAL) Urine Leukocyte Esterase Negative (NEGATIVE) Urine RBC 0-2/hpf (0-2) Urine WBC 0-5/hpf (0-5) Urine Epithelial Cells Few/hpf (NONE-MOD) Urine Crystals None seen (NONE SEEN) Urine Bacteria Few/hpf (NONE-FEW) Urine Hyaline Casts None/lpf (NONE) Urine Granular Casts None seen (NONE SEEN) Urine Waxy Casts None seen (NONE SEEN) Urine Red Blood Cell Casts None seen (NONE SEEN) Urine White Blood Cell Casts None seen (NONE SEEN) Urine Mucus None seen (None Seen) Urine Trichomonas None seen (NONE SEEN) Urine Yeast None (NONE SEEN) Urinalysis Comment None Urine Culture Reflexed Not indicated Lipase 24U/L (13-60) Magnesium Level 1.7mg/dL (1.6-2.6) Troponin T 0.010ug/L (0.0-0.011) Free Thyroxine Index 2.6 (1.2-4.9) Thyroxine (T4) 6.7ug/dL (4.5-12.0) Triiodothyronine (T3) Uptake 39% (24-39) Test 01/14/17 06:25 White Blood Count 2.5th/mm3 (3.8-10.1) Red Blood Count 2.86mil/mm3 (3.90-5.20) Hemoglobin 9.6g/dL (12.0-15.6) Hematocrit 29.9% (35.0-46.0) Mean Corpuscular Volume 104.5fL (81-100) Mean Corpuscular Hemoglobin 33.6pg (27.0-35.0) Mean Corpuscular Hemoglobin Concent 32.1% (32.0-37.0) Red Cell Distribution Width 13.1% (12.3-15.4) Platelet Count 137bil/L (150-400) Neutrophils (%) (Auto) 33.5% (40-74) Lymphocytes (%) (Auto) 49.8% (14-46) Monocytes (%) (Auto) 12.3% (4-12) Eosinophils (%) (Auto) 3.6% (0-5) Basophils (%) (Auto) 0.4% (0-3) Sodium Level 138mEq/L (134-144) Potassium Level 4.7mEq/L (3.5-5.2) Chloride Level 104mEq/L (97-108) Carbon Dioxide Level 21mmol/L (18-29) Blood Urea Nitrogen 29mg/dL (8-27) Creatinine 1.58mg/dL (0.57-1.00) Estimat Glomerular Filtration Rate 46mL/min (>59) Glucose Level 100mg/dL (60-99) Calcium Level 9.5mg/dL (8.5-10.1) Discharge Medications Discharge Medications Acidophilus/Pectin, [place] (Acidophilus [place]) 1 Each Tablet 1 EACH PO QAM ( Reported) Aspirin Chew (Aspirin Chew) 81 Mg Chew 81 MG PO DAILY Prescribed by: DIMA CABELLO DO Cholecalciferol (Vitamin D3) (Vitamin D) 1,000 Unit Tablet 1,000 UNIT PO QAM ( Reported) Cyanocobalamin (Vitamin B-12) (Vitamin B-12) 1,000 Mcg Tablet 1,000 MCG PO QAM ( Reported) Dextran 70/Hypromellose/Pf (Artificial Tears Drops) 1 Each Droperette 1 DROP BOTH_EYES BID (Reported) Famotidine (Famotidine) 20 Mg Tablet 20 MG PO QAM (Reported) Fluticasone Propionate (Flovent Diskus) 250 Mcg Disk.w.dev 1 PUFF INHALATION BID (Reported) Glucosamine (Glucosamine) 500 Mg Tablet 500 MG PO BID (Reported) Levothyroxine (Levothyroxine) 100 Mcg Tablet 100 MCG PO QAM (Reported) Lisinopril (Lisinopril) 5 Mg Tablet 2.5 MG PO DAILY Prescribed by: DIMA CABELLO DO Melatonin/Pyridoxine (Melatonin 3 mg Tablet) 1 Each Tablet 1 EACH PO HS ( Reported) Metoprolol Tartrate (Metoprolol Tartrate) 25 Mg Tablet 25 MG PO BID Prescribed by: BILLY COTE DO Multivitamin (Once Daily) 1 Each Tablet 1 EACH PO QAM (Reported) Oxybutynin Chloride ER (Oxybutynin Chloride ER) 10 Mg Tab.er.24 10 MG PO QPM ( Reported) Paroxetine (Paroxetine) 20 Mg Tablet 20 MG PO QPM (Reported) Terbinafine (Terbinafine) 250 Mg Tablet 250 MG PO BID (Reported) Tizanidine (Tizanidine) 4 Mg Tablet 4 MG PO TID (Reported) Trazodone (Trazodone) 50 Mg Tablet 25 MG PO HS (Reported) As needed Bisacodyl (Dulcolax) 5 Mg Tablet.dr 5 MG PO QAM PRN PRN For Constipation ( Reported) Docusate Sodium (Docusate Sodium) 250 Mg Capsule 250 MG PO QAM PRN PRN For Constipation (Reported) 30 DAY SUPPLY STARTED ON 12/19 Guaifenesin/Codeine Phosphate (Guaifen-Codeine 100-10 mg/5 ml) 120 Ml Liquid 10 ML PO Q4H PRN PRN For Cough (Reported) Hydrocodone-Acetaminophen 5-325 mg (Hydrocodone-Acetaminophen 5-325 mg) 1 Each Tablet 1-2 TABLET PO BID PRN PRN For Pain (Reported) Ondansetron (Ondansetron) 4 Mg Tablet 4 MG PO DAILY PRN PRN For Nausea/Vomiting (Reported) Sennosides (Senna) 8.6 Mg Tablet 17.2 MG PO QAM PRN PRN For Constipation ( Reported) Additional med instructions Please note the new changes to your medications. Continue taking your medications as instructed. Followup Plan Disposition: SNF Discharge Diet: Heart Healthy Discharge Activity: Outpatient Physical Therapy Patient Instructions Please follow up with your PCP within 1-2 weeks Please follow up with your enameler within 1-2 weeks Follow-up Provider: Nael Jin MD Follow-up with PCP in: 1 week Attending Statement The patient was seen and examined together with Dr. Smith on 01/14/2017 and I agree with the discharge summary as outlined in the note above. copies to: Nael Jin MD, Hong D DO Jan 14, 2017 17:35 Raymundo Kearns MD Jan 14, 2017 21:10
== END 2017-01-14 14:14 ==
LOC: SED 11:55 → EDBD 11:55 → MPC 17:44
PROVIDERS: ADMIT Urology; ATTEND Urology
DX: I49.5 Sick sinus syndrome (principal); R10.816 Epigastric abdominal tenderness; R11.10 Vomiting, unspecified; D53.9 Nutritional anemia, unspecified; E78.5 Hyperlipidemia, unspecified; E03.9 Hypothyroidism, unspecified; Z86.73 Personal history of transient ischemic attack (TIA), and cerebral infarction without residual deficits; G43.909 Migraine, unspecified, not intractable, without status migrainosus; I12.9 Hypertensive chronic kidney disease with stage 1 through stage 4 chronic kidney disease, or unspecified chronic kidney disease; N18.9 Chronic kidney disease, unspecified; G89.4 Chronic pain syndrome; D63.1 Anemia in chronic kidney disease; F32.9 Major depressive disorder, single episode, unspecified; K21.9 Gastro-esophageal reflux disease without esophagitis; Z95.0 Presence of cardiac pacemaker; Z79.82 Long term (current) use of aspirin
CPT/HCPCS: 36415; 71010; 80048; 80053; 81000; 82533; 83605; 83690; 83735; 83880; 84145; 84436; 84479; 84484; 85025; 87040; 93005; 96361; 96374; 96376; 99285; G0378; J1644; J2405; J7030

== ENCOUNTER 2017-03-08 21:47 | Emergency (ER) | payer MEDICARE, OTHER ==
[~2017-03-08] VITALS: Ht 165.1 cm; Wt 79.0 kg
[~2017-03-08 21:47] MED LIST changes: -METO-272 PO; +METO25TA6 PO; -OLAN5TAB PO; -POLY17PO6 PO
[2017-03-08 21:52] VITALS: BP 106/65; RESP 16; O2SAT 100
--- NOTE | 2017-03-09 01:00 | ED.REPORT ---
HPI-Allergic Reaction Date of Service March 09, 2017 ED Provider: Dwaine Deutsch MD The pt is a 72 y/o female w/ a hx of hyperlipidemia and Type 2 diabetes presenting to the ED complaining of a sensation of her throat closing onset three months ago. She describes feeling like a "baseball" is in her throat. She vomits 2x a day after lunch and dinner as well as difficulty swallowing. She takes nausea medication which helps, as well as 2 tums a day. Denies fever, or change in voice. Nursing Notes Stated Complaint: THROAT CLOSING/VOMITING/DIFFICULTY BREATHING Chief Complaint: ENT & Mouth Nursing Notes Reviewed: Yes (Infogram, meds not reconciled) Allergies: Coded Allergies: TAPE (Verified Allergy, Severe, Sensitive Skin/Blisters (Paper& [place]an [place]) , 12/24/16) gabapentin (Verified Allergy, Severe, Edema, 12/24/16) meperidine (Verified Allergy, Severe, Seizures, 12/24/16) phenytoin (Verified Allergy, Severe, "I Turn Black", 12/24/16) ciprofloxacin (Verified Allergy, Intermediate, 12/24/16) Reported reaction from RN at [facility] deferasirox (Verified Allergy, Unknown, 12/24/16) lactose (Verified Allergy, Unknown, Abdominal Pain, 01/12/17) latex (Verified Allergy, Unknown, 12/24/16) codeine (Verified Adverse Reaction, Mild, itching, 12/24/16) calcium (Verified Adverse Reaction, Unknown, CALCIUM CITRATE, 12/07/16) Uncoded Allergies: HAYFEVER (Allergy, Unknown, 07/16/16) STRAWBERRIES, (Allergy, Unknown, 07/16/16) Scheduled Acidophilus/Pectin, [place] (Acidophilus [place]) 1 Each Tablet 1 EACH PO QAM Aspirin Chew (Aspirin Chew) 81 Mg Chew 81 MG PO DAILY Cholecalciferol (Vitamin D3) (Vitamin D) 1,000 Unit Tablet 1,000 UNIT PO QAM Cyanocobalamin (Vitamin B-12) (Vitamin B-12) 1,000 Mcg Tablet 1,000 MCG PO QAM Dexamethasone (Dexamethasone) 4 Mg Tablet 4 MG PO DAILY Dextran 70/Hypromellose/Pf (Artificial Tears Drops) 1 Each Droperette 1 DROP BOTH_EYES BID Famotidine (Famotidine) 20 Mg Tablet 20 MG PO QAM Fluticasone Propionate (Flovent Diskus) 250 Mcg Disk.w.dev 1 PUFF INHALATION BID Glucosamine (Glucosamine) 500 Mg Tablet 500 MG PO BID Levothyroxine (Levothyroxine) 100 Mcg Tablet 100 MCG PO QAM Lisinopril (Lisinopril) 5 Mg Tablet 2.5 MG PO DAILY Melatonin/Pyridoxine (Melatonin 3 mg Tablet) 1 Each Tablet 1 EACH PO HS Metoprolol Tartrate (Metoprolol Tartrate) 25 Mg Tablet 25 MG PO BID Multivitamin (Once Daily) 1 Each Tablet 1 EACH PO QAM Oxybutynin Chloride ER (Oxybutynin Chloride ER) 10 Mg Tab.er.24 10 MG PO QPM Paroxetine (Paroxetine) 20 Mg Tablet 20 MG PO QPM Terbinafine (Terbinafine) 250 Mg Tablet 250 MG PO BID Tizanidine (Tizanidine) 4 Mg Tablet 4 MG PO TID Trazodone (Trazodone) 50 Mg Tablet 25 MG PO HS Scheduled PRN Bisacodyl (Dulcolax) 5 Mg Tablet.dr 5 MG PO QAM PRN PRN For Constipation Docusate Sodium (Docusate Sodium) 250 Mg Capsule 250 MG PO QAM PRN PRN For Constipation 30 DAY SUPPLY STARTED ON 12/19 Guaifenesin/Codeine Phosphate (Guaifen-Codeine 100-10 mg/5 ml) 120 Ml Liquid 10 ML PO Q4H PRN PRN For Cough Hydrocodone-Acetaminophen 5-325 mg (Hydrocodone-Acetaminophen 5-325 mg) 1 Each Tablet 1-2 TABLET PO BID PRN PRN For Pain Ondansetron (Ondansetron) 4 Mg Tablet 4 MG PO DAILY PRN PRN For Nausea/Vomiting Sennosides (Senna) 8.6 Mg Tablet 17.2 MG PO QAM PRN PRN For Constipation General Time Seen by MD: 00:57 Chief Complaint Swelling throat Hx Obtained From: Patient Arrived By: Walk-in Onset Occurred: More than a week ago... (3 months) Recent Healthcare: Recent doctor visit, Recent hospitalization Past Medical History Past Medical History Notes: 12/24/16: Admit 12/07- for pacemaker replacement for sick sinus Seen in ED 12/23/16 for back pain and sciatica Echocardiogram November 2016 EF of 30-35%, akinesis along the distal one third of the left ventricular segments, hypokinesis on the middle one third, and the basal or proximal one third are normal [place] hyperkinetic-findings suspicious for stress-induced cardiomyopathy, but cannot completely exclude LAD infarction Past Medical History H/o bipolar with psychosis CKD III CHF Hyperlipidemia Diabetes mellitus type 2 diet-controlled, chronic Hypoproliferative anemia, seen by Dr. Alvarado. 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 Hypothyroidism History of kidney stones GERD Hypertension History of endometriosis Osteoarthritis diffuse with chronic pain. Past Surgical History Cataract removal in [facility] Pacemaker placement for sick sinus syndrome Hysterectomy at age 29 Cholecystectomy Tonsillectomy. Status post surgery for small bowel adhesions, hernia repair, and colon surgery Multiple hip replacements on the left x3. Smoking History Former Smoker Social History POLST indicates full code Alcohol Use: "Social" Drug Use: Denies drug use Other Social History: , Local resident Ambulatory Status Walker Review of Systems Denies changes in voice Constitutional: Denies: Fever GI: Reports: Dysphagia, Nausea, Vomiting Complete sys rev & neg: except as marked. Physical Exam Initial Vital Signs Vital Signs (First) Date Time Temp Pulse Resp B/P Pulse Ox O2 Delivery O2 Flow Rate FiO2 03/08/17 21:52 37.2 60 16 106/65 100 Room Air Initial VS: Reviewed, Vital signs normal General/Constitutional: Awake, Alert Behavior: Positive: Anxious Respiratory / Chest: Atraumatic, Breath sounds NL, Breath sounds = bilat, No respiratory distress, No rales, No rhonchi, No wheezing No audible bronchospasms Cardiovascular: Heart rate NL, Regular rhythm, Heart sounds NL Skin: Atraumatic, Color NL, No rash, Warm, Dry Head / Eyes: Atraumatic, Normocephalic ENT: Atraumatic, Airway patent Pt can swallow w/o difficulty Voice is normal Abdomen: Atraumatic, Soft, Non-tender Neurologic: Oriented X3, Speech NL Neck: Atraumatic, Supple, No masses Soreness and tenderness to anterior neck Psychiatric: Affect NL, Mood NL Interpretation & Diagnostics Lab Results Interpretation Result Diagram: 03/09/17 0120 03/09/17 0120 Test 03/09/17 01:20 White Blood Count 5.3th/mm3 (3.8-10.1) Red Blood Count 2.92mil/mm3 (3.90-5.20) Hemoglobin 9.8g/dL (12.0-15.6) Hematocrit 30.7% (35.0-46.0) Mean Corpuscular Volume 105.1fL (81-100) Mean Corpuscular Hemoglobin 33.6pg (27.0-35.0) Mean Corpuscular Hemoglobin Concent 31.9% (32.0-37.0) Red Cell Distribution Width 12.8% (12.3-15.4) Platelet Count 207bil/L (150-400) Neutrophils (%) (Auto) 61.2% (40-74) Lymphocytes (%) (Auto) 24.4% (14-46) Monocytes (%) (Auto) 12.9% (4-12) Eosinophils (%) (Auto) 0.9% (0-5) Basophils (%) (Auto) 0.4% (0-3) Sodium Level 136mEq/L (134-144) Potassium Level 4.5mEq/L (3.5-5.2) Chloride Level 100mEq/L (97-108) Carbon Dioxide Level 23mmol/L (18-29) Blood Urea Nitrogen 37mg/dL (8-27) Creatinine 1.39mg/dL (0.57-1.00) Estimat Glomerular Filtration Rate 54mL/min (>59) Glucose Level 108mg/dL (60-99) Calcium Level 9.3mg/dL (8.5-10.1) Total Bilirubin 0.3mg/dL (0.0-1.2) Aspartate Amino Transf (AST/SGOT) 24U/L (0-50) Alanine Aminotransferase (ALT/SGPT) 10U/L (0-32) Alkaline Phosphatase 97U/L (25-165) Total Protein 7.5g/dL (6.4-8.4) Albumin 3.9g/dL (3.4-5.0) Hold Mortensen Top Tube Received (Received) Lab Results Interpretation: CBC chronic anemia CMP trace renal insufficiency (improved compared with previous) Re-Eval/Medical Decision Med Decision/Clinical Course This is a 72-year-old female presents with a 10 week history of increasing discomfort over the throat, she feels that something is swelling and pressing on her throat-and tonight it got to the point where she lay flat because of the sense of shortness of breath-this is what brought her to the emergency department. Reports her concern regarding a possible allergic reaction, although the time course is extraordinarily atypical-and she has no other features no spasm, hives, urticaria, etc. She is been able to eat and drink without overt trouble swallowing, she has had no change in her voice. She does report chronic nausea for which he takes mendacity on with occasional emesis once to twice a day. She has normal vitals. She clinically appears well. She has some soreness anteriorly to the neck-although I do not appreciate visible mass, or airway compromise. There are no findings of blood wounds, no signs of cellulitis or infectious etiology. She has no bronchospasm or urticaria on exam. Lab work was normal with the patient's chronic anemia and renal insufficiency again being reading demonstrated. CT imaging of the cyst of the neck was obtained Source of Hx: Old records Differential Diagnosis: Negative: Allergic reaction, Anaphylaxis, Angioedema, Bronchospasm, Idiopathic thromb purpura, Rhinitis, Status asthmaticus, Huerta- Davin syndrome, Urticaria Counseled Regarding: Diagnosis, Lab results Discharge & Departure Primary Impression: Globus sensation Discharge Condition All VS Reviewed: Yes Condition: Stable Additional Instructions: 1. The medical term for the sensation of a lump in the throat and neck is a "globus sensation". 2. A dangerous cause of that sensation was not identified on CT imaging. 3. You received a dose of the medication dexamethasone today to try and help resolve symptoms. 4. I recommend taking dexamethason 4mg once a day for the next three days as well. 5. On Saturday, I recommend calling for an appointment with the Ear, Nose, and Throat specialist Dr. Ordonez for further evaluation. 6. Return if new or worsening symptoms. Referrals: Kei Richey MD (PCP) Care Transferred to: Dr. Cuello Care Transferred at: 03:00 Jered Attestation Portions of this note were transcribed by Yazan Gonzales. I, Dr. Deutsch personally performed the history, physical exam and medical decision-making; I reviewed and confirmed the accuracy of the information in the transcribed note. Signed by : Jered Sepulveda, 03/08/17 and 0200. copies to: Kei Richey MD, Matthew F MD March 09, 2017 01:00 Yazan Gonzales March 09, 2017 01:53
[2017-03-09 01:27] LABS: BASOPHILS % (AUTO) 0.4 % (0-3); EOSINOPHILS % (AUTO) 0.9 % (0-5); MONOCYTES % (AUTO) 12.9 % (4-12); Mean Corpuscular Hemoglobin 33.6 pg (27.0-35.0); Mean Corpuscular Volume 105.1 fL (81-100); NEUTROPHILS % (AUTO) 61.2 % (40-74); Platelet Count 207 bil/L (150-400)
[2017-03-09] MEDS ORDERED: Dexamethasone Inj 10 MG in 0.9% Sodium Chloride-Pha MIX 50 ML IV ONE (02:20)
[2017-03-09] MEDS ORDERED: DXM4T PO (03:30)
[2017-03-09] MEDS ORDERED: Ondansetron 2 mg/mL 2 mL Inj IVPUSH ONE (03:35)
[2017-03-09 05:03] VITALS: PULSE 66; RESP 16; O2SAT 100
--- NOTE | 2017-03-09 09:05 | DRSVH ---
PROCEDURE: CT NECK SOFT TISSUES WITH CONTRAST ([id number]) INDICATIONS: neck swelling TECHNIQUE: After the administration of intravenous contrast, 3.0 mm axial sections acquired from the sella to th e aortic arch. Additional oblique axial 3.0 mm sections acquired through the pharynx. 3 mm thick co nita reformats were generated. For radiation dose reduction, the following was used: automated exp osure control. COMPARISON: None. FINDINGS: Image quality: Excellent. Lymph nodes: No enlarged lymph nodes seen throughout the neck. Vessels: Visualized vasculature appears patent. Neck spaces: The oropharynx, nasopharynx, and pharynx demonstrate no mucosal lesions. There is an ap pearance of asymmetric thickening of the right aryepiglottic fold. Glands: The parotid and submandibular glands appear normal. Thyroid gland is unremarkable. Miscellaneous: Visualized brain and orbits appear normal. Lung apices appear clear. Superficial so ft tissues appear normal. Bones: No suspicious bony lesions. Visualized mastoid air cells demonstrate patchy opacification mo st prominent on the right suggestive of chronic mastoiditis. IMPRESSION: 1. Nonspecific appearance of asymmetric thickening of the right aryepiglottic fold. Direct visualizat ion of this area is recommended. Dictated by: Megan Kendrick M.D. on 03/09/2017 at 8:59 Approved by: Megan Kendrick M.D. on 03/09/2017 at 9:04
== END 2017-03-09 05:07 | disposition home or self-care (01) ==
LOC: SED 21:47
DX: F45.8 Other somatoform disorders (principal); R22.1 Localized swelling, mass and lump, neck; E78.5 Hyperlipidemia, unspecified; E11.9 Type 2 diabetes mellitus without complications; Z79.82 Long term (current) use of aspirin; I12.9 Hypertensive chronic kidney disease with stage 1 through stage 4 chronic kidney disease, or unspecified chronic kidney disease; K21.9 Gastro-esophageal reflux disease without esophagitis; E03.9 Hypothyroidism, unspecified; I50.9 Heart failure, unspecified; N18.3 Chronic kidney disease, stage 3 (moderate); Z95.0 Presence of cardiac pacemaker; Z86.73 Personal history of transient ischemic attack (TIA), and cerebral infarction without residual deficits; Z87.891 Personal history of nicotine dependence; Z88.5 Allergy status to narcotic agent; Z88.1 Allergy status to other antibiotic agents; Z88.8 Allergy status to other drugs, medicaments and biological substances; Z91.040 Latex allergy status
CPT/HCPCS: 36415; 70491; 80053; 85025; 87070; 87205; 96374; 96375; 99285; J1100; J2405; Q9967